=== PATIENT | male | born 1980 | race Caucasian/White ===

== ENCOUNTER 2018-11-06 09:07 | Inpatient (IN) | payer MEDICAID ==
[2018-11-06] MEDS ORDERED: Acetaminophen 500 MG TAB PO ONE (09:24)
[2018-11-06] MEDS ORDERED: Sodium Chloride 0.9% 1,000 ML IV ONE ×2 (09:24→10:28)
[2018-11-06] MEDS ORDERED: Acetaminophen 500 MG TAB ONE (09:41)
[2018-11-06 10:04] LABS: INR 1.29 (0.5-1.4)
[2018-11-06 10:08] LABS: ALB/GLOB RATIO 1.3 (1.0-1.8); ALBUMIN 3.6 gm/dL (4.2-5.5); ALKALINE PHOSPHATASE 41 U/L (34-104); ANION GAP 14.6 (7.0-16.0); BILIRUBIN,TOTAL 1.6 mg/dL (0.3-1.0); BUN - UREA NITROGEN 17 mg/dL (7-25); CALCIUM SERUM 9.2 mg/dL (8.6-10.3); CHLORIDE 89 mEq/L (98-107); CREATININE - SERUM 1.1 mg/dL (0.7-1.3); GFR AFRICAN-AMERICAN > 60.0 ml/min (>90); GFR NON AFRICAN-AMERICAN > 60.0 ml/min; GLUCOSE 169 mg/dL (70-105); POTASSIUM SERUM 3.6 mEq/L (3.5-5.1); SGOT 29 U/L (13-39); SGPT/ALT 30 U/L (7-52); SODIUM SERUM 121 mEq/L (136-145); TOTAL PROTEIN,SERUM 6.4 gm/dL (6.0-8.3)
--- NOTE | 2018-11-06 10:19 | Diagnostic Imaging Report ---
Chest x-ray (single view, AP) HISTORY: Fever The heart size is normal. There are faint ill-defined multifocal bilateral pulmonary infiltrates. Exact etiology is uncertain. Inflammatory process cannot be excluded. Clinical correlation is needed. A CT scan may provide additional assessment and evaluation. No hilar or mediastinal amenities. No pleural fluid. IMPRESSION: 1. Faint hilar multifocal infiltrates. Exact etiology uncertain. Findings may be associated with inflammatory change. Clinical correlation needed. A CT scan would provide additional assessment.
[2018-11-06] MEDS ORDERED: Potassium Chloride Elixir 20 mEq /15 mL UDC PO ONE (10:23)
[2018-11-06] MEDS ORDERED: Sodium Chloride 0.45% 1,000 ML IV ONE (10:24)
[2018-11-06 10:27] LABS: HEMATOCRIT 37.5 % (41.0-60); HEMOGLOBIN 12.6 gm/dL (12-16); MEAN CELL VOLUME 88.3 fl (80-99); MEAN CORPUSCULAR HEMOGLOBIN 29.7 pg (26.0-30.0); MEAN CORPUSCULAR HGB CONC 33.7 pg (28.0-36.0); PLATELET COUNT 204 Th/cmm (150-400); RED BLOOD COUNT 4.25 Mil/cmm (4.30-5.70); RED CELL DISTRIBUTION WIDTH 11.6 % (11.5-20.0)
[2018-11-06] MEDS ORDERED: Potassium Chloride Elixir 20 mEq /15 mL UDC ONE (10:32)
[2018-11-06] MEDS ORDERED: IOHEXOL 300mgI/mL 100 ML VIAL ONE (10:40)
[2018-11-06 10:45] LABS: ALLEN TEST Positive; PaCO2 27.7 mmHg (35.0-45.0); PaO2 55.2 mmHg (80.0-100.0); pH 7.521 (7.35-7.45); sO2c 92.1 % (92.0-100.0)
[2018-11-06 10:48] LABS: URINE SOURCE CLEAN C
[2018-11-06 11:08] LABS: URINE BILIRUBIN NEGATIVE (NEGATIVE); URINE BLOOD LARGE (NEGATIVE); URINE GLUCOSE (UA) NEGATIVE (NEGATIVE); URINE KETONE NEGATIVE (NEGATIVE); URINE LEUKOCYTE ESTERASE NEGATIVE (NEGATIVE); URINE MICROSCOPIC INDICATED? YES; URINE NITRATE POSITIVE (NEGATIVE); URINE PROTEIN >=300 mg/dL (NEGATIVE)
[2018-11-06] MEDS ORDERED: Albuterol Nebulizer 2.5mg/3mL HHN ONE ×2 (11:18→11:24)
[2018-11-06] MEDS ORDERED: Ipratropium Neb 0.5 mg/2.5 mL UD HHN ONE ×2 (11:18→11:24)
[2018-11-06 11:32] LABS: URINE COLOR ORANGE
[2018-11-06 11:33] LABS: URINE BACTERIA MANY /hpf (NONE SEEN); URINE CLARITY HAZY (CLEAR); URINE EPITHELIAL CELLS OCCASIONAL /lpf (FEW); URINE WBC 0-2 /hpf (0-5)
--- NOTE | 2018-11-06 11:50 | Diagnostic Imaging Report ---
CT scan of the chest with intravenous contrast HISTORY: Cough Total DLP equals 245 CTDI equals 6.1 Following administration of intravenous contrast, axial sections were obtained from a level above the clavicles down to level below the diaphragm. The exam demonstrates bilateral multifocal ill-defined infiltrates throughout the lungs. Somewhat more focal consolidation noted in the left lower lobe. No pleural fluid is seen. Findings may be associated with an inflammatory etiology. Clinical correlation is needed. The heart size is normal. No abnormal mediastinal masses. Partial obscuration of the left hilar margins due to adjacent infiltrate. IMPRESSION: 1. Bilateral multifocal ill-defined infiltrates throughout the lungs. Exact etiology uncertain. Findings may be associated with an inflammatory process. Clinical correlation is needed.
[2018-11-06 11:51] LABS: BAND NEUTROPHILE 0 % (0-10); BASOPHIL 0 % (0-3); EOSINOPHIL 0 % (0-5); LYMPHOCYTE 72 % (20-50); MONOCYTE 23 % (2-10); NEUTROPHILS 5 % (40-80)
--- NOTE | 2018-11-06 12:02 | ED Physician Chart ---
ED Chief Complaint/HPI - Patient Information Date Seen:: 11/06/18 Time Seen:: 09:10 Chief Complaint:: fever History of Present Illness:: this is a 38 yo white male with fever, weakness, cough, sob and tachycardia. he started getting sick a week ago. he has had pneumonia in the past but non recently. he denies smoking, drinking but has use thc. Allergies:: Allergies Allergy/AdvReac Type Severity Reaction Status Date / Time No Known Allergies Allergy Verified 11/06/18 09:41 Vitals:: Vital Signs - 8 hr 11/06/18 11/06/18 11/06/18 09:09 10:21 11:13 Temp 101.5 F 98.6 F HR 120 146 132 RR 18 41 47 BP 130/77 118/68 117/71 O2 Sat % 94 98 11/06/18 11:28 Temp HR 131 RR 24 BP O2 Sat % 98 Historian:: Patient, Family Member (sister) Review:: Nurse's Note Reviewed, Old Chart Reviewed ED Review of Systems - Review of Systems General/Constitutional: Fever, Chills, Weight loss, Weakness, No diaphoresis, No edema, Loss of appetite Skin: No skin lesions, No rash, No bruising, Other (insect bites) Head: No headache, No light-headedness Eyes: No loss of vision, No pain, No diplopia ENT: No earache, No nasal drainage, No sore throat, No tinnitus Neck: No neck pain, No swelling, No thyromegaly, No stiffness, No mass noted Cardio Vascular: No chest pain, No palpitations, No PND, No orthopnea, No edema Pulmonary: SOB, Cough, No sputum, No wheezing GI: No nausea, No vomiting, No diarrhea, No pain, No melena, No hematochezia, No constipation, No hematemesis G/U: No dysuria, No frequency, No hematuria Musculoskeletal: No bone or joint pain, No back pain, No muscle pain Endocrine: No polyuria, No polydipsia Psychiatric: No prior psych history, No depression, No anxiety, No suicidal ideation Hematopoietic: No bruising, No lymphadenopathy Allergic/Immuno: No urticaria, No angioedema Neurological: No syncope, No focal symptoms, No weakness, No paresthesia, No headache, No seizure, No dizziness, No confusion, No vertigo ED Past Medical History - Past Medical History Obtainable: Yes Past Medical History: No significant medical hx Family History: None Social History: Smoker, No Alcohol, Illicit Drug Use, Employed Surgical History: None Psychiatricy History: None Medication: Reviewed Family Medical History - Family Member Mother History Unknown: Yes ED Physical Exam - Physical Examination General/Constitutional: Well-developed, well-nourished (poorly nourished and dehydrated), Alert, No distress, GCS 15, Ambulatory Other Gen/Cons comments:: the patient looks toxic and is lethargic Head: Atraumatic Eyes: Lids, conjuctiva normal, PERRL, EOMI Skin: Nl inspection, No rash, No skin lesions (multiple insect noted), No ecchymosis, Well hydrated, No lymphadenopathy ENMT: External ears, nose nl, Nasal exam nl, Lips, teeth, gums nl Neck: Nontender, Full ROM w/o pain, No JVD, No nuchal rigidity, No bruit, No mass, No stridor Respiratory: Nl effort/Exclusion, Clear to Auscultation, No Wheeze/Rhonchi/ Rales (bilateral wheezes and ronchi) Cardio Vascular: RRR, No murmur, gallop, rubs, NL S1 S2 GI: No tenderness/rebounding/guarding, No organomegaly, No hernia, Normal BS's, Nondistended, No mass/bruits, No McBurney tenderness : No CVA tenderness Extremities: No tenderness or effusion, Full ROM, normal strength in all extremities, No edema, Normal digits & nails Neuro/Psych: Alert/oriented, DTR's symmetric, Normal sensory exam, Normal motor strength, Judgement/insight normal, Mood normal, Normal gait, No focal deficits Misc: Normal back, No paraspinal tenderness ED Labs/Radiology/EKG Results - Lab Results Results: Laboratory Tests 11/06/18 11/06/18 11/06/18 09:40 09:40 09:40 WBC RBC Hgb Hct MCV MCH MCHC Differential RDW Plt Count MPV Add Manual Diff Band Neutrophils % Neutrophils (Manual) Lymphocytes Monocytes Eosinophils Basophils PT 13.2 H INR 1.29 PTT (Actin FS) 43.9 H Specimen Source Sample Site pH pCO2 pO2 HCO3 Base Excess O2 Saturation Shiv Test Vent Rate Inspired O2 Tidal Volume PEEP Pressure (ins/psv/peep) Critical Value Sodium 121 L Potassium 3.6 Chloride 89 L Carbon Dioxide 21.0 Anion Gap 14.6 BUN 17 Creatinine 1.1 Est GFR ( Amer) > 60.0 Est GFR (Non-Af Amer) > 60.0 BUN/Creatinine Ratio 15.5 Glucose 169 H Whole Bld Lactic Acid Calcium 9.2 Total Bilirubin 1.6 H AST 29 ALT 30 Alkaline Phosphatase 41 Troponin I 0.03 Total Protein 6.4 Albumin 3.6 L Globulin 2.8 Albumin/Globulin Ratio 1.3 TSH Urine Source Urine Color Urine Clarity Urine pH Ur Specific [place] Urine Protein Urine Glucose (UA) Urine Ketones Urine Blood Urine Nitrate Urine Bilirubin Urine Urobilinogen Ur Leukocyte Esterase Urine RBC Urine WBC Ur Epithelial Cells Urine Bacteria HIV 1&2 Antibody Screen 11/06/18 11/06/18 11/06/18 09:40 09:40 10:00 WBC RBC Hgb Hct MCV MCH MCHC Differential RDW Plt Count MPV Add Manual Diff Band Neutrophils % Neutrophils (Manual) Lymphocytes Monocytes Eosinophils Basophils PT INR PTT (Actin FS) Specimen Source Sample Site pH pCO2 pO2 HCO3 Base Excess O2 Saturation Shiv Test Vent Rate Inspired O2 Tidal Volume PEEP Pressure (ins/psv/peep) Critical Value Sodium Potassium Chloride Carbon Dioxide Anion Gap BUN Creatinine Est GFR ( Amer) Est GFR (Non-Af Amer) BUN/Creatinine Ratio Glucose Whole Bld Lactic Acid 1.93 Calcium Total Bilirubin AST ALT Alkaline Phosphatase Troponin I Total Protein Albumin Globulin Albumin/Globulin Ratio TSH 1.14 Urine Source CLEAN C Urine Color ORANGE Urine Clarity HAZY Urine pH 6.0 Ur Specific [place] 1.025 Urine Protein >=300 Urine Glucose (UA) NEGATIVE Urine Ketones NEGATIVE Urine Blood LARGE H Urine Nitrate POSITIVE H Urine Bilirubin NEGATIVE Urine Urobilinogen 1.0 Ur Leukocyte Esterase NEGATIVE Urine RBC 2-5 H Urine WBC 0-2 Ur Epithelial Cells OCCASIONAL Urine Bacteria MANY H HIV 1&2 Antibody Screen 11/06/18 11/06/18 11/06/18 10:22 10:22 10:31 WBC 0.3 L* RBC 4.25 L Hgb 12.6 Hct 37.5 L MCV 88.3 MCH 29.7 MCHC Differential 33.7 RDW 11.6 Plt Count 204 MPV 7.1 Add Manual Diff YES Band Neutrophils % 0 Neutrophils (Manual) 5 L Lymphocytes 72 H Monocytes 23 H Eosinophils 0 Basophils 0 PT INR PTT (Actin FS) Specimen Source Arterial Sample Site Right Radial pH 7.521 H pCO2 27.7 L pO2 55.2 L HCO3 22.2 Base Excess 0.7 O2 Saturation 92.1 Shiv Test Positive Vent Rate N/A Inspired O2 32 Tidal Volume N/A PEEP N/A Pressure (ins/psv/peep) N/A Critical Value DM Sodium Potassium Chloride Carbon Dioxide Anion Gap BUN Creatinine Est GFR ( Amer) Est GFR (Non-Af Amer) BUN/Creatinine Ratio Glucose Whole Bld Lactic Acid Calcium Total Bilirubin AST ALT Alkaline Phosphatase Troponin I Total Protein Albumin Globulin Albumin/Globulin Ratio TSH Urine Source Urine Color Urine Clarity Urine pH Ur Specific [place] Urine Protein Urine Glucose (UA) Urine Ketones Urine Blood Urine Nitrate Urine Bilirubin Urine Urobilinogen Ur Leukocyte Esterase Urine RBC Urine WBC Ur Epithelial Cells Urine Bacteria HIV 1&2 Antibody Screen NEGATIVE - Radiology Results Results: chest x-ray = patchy infiltrates ct scan of the chest = patchy infiltrates - EKG Interpretations EKG Time:: 09:35 Rate & Rhythm: rate= 156 sinus [place]: right axis ED Assessment - Assessment General Assessment: acute respiratory fialure with hypoxemia severe dehydration fever severe leukopenia Critical Care Time: 76 minutes Excludes all billable procedures: Yes This condition life threatening/high prob of deterioration: Yes ED Septic Shock - . Is Septic Shock (SBP<90, OR Lactate>4 mmol\L) present?: No - <6hrs of presentation: Vital Signs: Vital Signs - 8 hr 11/06/18 11/06/18 11/06/18 09:09 10:21 11:13 Temp 101.5 F 98.6 F HR 120 146 132 RR 18 41 47 BP 130/77 118/68 117/71 O2 Sat % 94 98 11/06/18 11:28 Temp HR 131 RR 24 BP O2 Sat % 98 ED Reassessment (Disposition) - Reassessment Reassessment Condition:: Improved - Diagnosis Diagnosis:: acute respiratory failure with hypoxemia severe deydration severe leucopenia fever - Patient Disposition Discharge/Transfer:: Acute Care w/in this hosp Admitted to:: ICU Admitting Medical Physician:: Jericho Bai Condition at Disposition:: Critical
[2018-11-06 12:12] LABS: AMPHETAMINE URINE NEGATIVE (NEGATIVE); BARBITURATES URINE NEGATIVE (NEGATIVE); BENZODIAZEPINES QUAL URINE NEGATIVE (NEGATIVE); CANNABINOID THC POSITIVE (NEGATIVE); COCAINE METABOLITE QUAL URINE POSITIVE (NEGATIVE); METHADONE URINE NEGATIVE (NEGATIVE); METHAMPHETAMINES QUAL URINE NEGATIVE (NEGATIVE); OPIATES (MORPHINE) QUAL. URINE NEGATIVE (NEGATIVE); PHENCYCLIDINE (PCP) URINE NEGATIVE (NEGATIVE); TRICYCLICS (TCA) QUAL. URINE NEGATIVE (NEGATIVE)
[2018-11-06] MEDS ORDERED: Maalox 30 mL Cup PO PRN (12:38)
[2018-11-06] MEDS ORDERED: guaiFENesin 200 MG/10 ML UDC PO PRN (12:38)
[2018-11-06] MEDS: Albuterol Nebulizer 2.5mg/3mL HHN SCH ×2 (14:06→19:36)
[2018-11-06] MEDS: Ipratropium Neb 0.5 mg/2.5 mL UD IH SCH ×2 (14:06→19:36)
[2018-11-06] MEDS: Fluconazole 400mg/200mL 400 MG/200 ML BAG IV SCH (14:11)
[2018-11-06] MEDS: methylPREDNISolone SS 40 mg Vial IVP SCH ×2 (14:12→20:46)
[2018-11-06] MEDS: D5-0.9%NS 1,000 ML IV SCH ×2 (14:13→20:50)
--- NOTE | 2018-11-06 15:24 | History & Physical ---
ADMIT DATE: 11/06/2018 CHIEF COMPLAINT: Fever, not feeling well. HISTORY OF PRESENT ILLNESS: This is a 38-year-old otherwise healthy male who was brought in secondary to 7-day history of not feeling well, complaining of fever, weakness, coughing and shortness of breath. The patient was brought in the ER and noted to have creatinine in 130s and to be dehydrated. The patient is being admitted to ICU. PAST MEDICAL HISTORY: As mentioned in the history of present illness. PAST SURGICAL HISTORY: ____. ALLERGIES: No known drug allergies. MEDICATIONS: None. FAMILY HISTORY: Noncontributory. SOCIAL HISTORY: He smokes around 1 occasional cigarette, drinks beer mostly. The patient is positive for cocaine. 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 REVIEW OF SYSTEMS: GENERAL: The patient complains of not feeling well. HEENT: No blurred vision or pain. LUNGS: The patient with previous history of pneumonia. HEART: Denies hypertension or coronary artery disease. ABDOMEN: No nausea or vomiting. GENITOURINARY: The patient denies increased frequency or dysuria. NEUROLOGIC: No headache, seizure or syncope. PSYCHIATRIC: The patient denies. PHYSICAL EXAMINATION: VITAL SIGNS: Blood pressure 117/70, respirations ____, and temperature 98.6. GENERAL: A middle-aged male, appears acutely ill. NECK: Supple. No mass. LUNGS: Equal breath sounds, few rhonchi. HEART: Regular rate and rhythm. Sinus tachycardia. ABDOMEN: Soft, globular. EXTREMITIES: Positive rash in the right lower extremity, 1 cm as well as the forehead. No clubbing, cyanosis or edema. NEUROLOGIC: Limited. Moving all 4 extremities. LABORATORY DATA: WBC 0.3, hemoglobin 12, platelets 204. Sodium 113. PT 13, INR 1.2, PTT 43, pH 7.5, bicarbonate 7, pCO2 of 55. Sodium 120, potassium 3.6, BUN 70, creatinine 1.1, blood sugar 169, total bilirubin 1.6, albumin 3.6. UA positive nitrite, large leukocyte, many bacteria, positive cocaine and marijuana. ASSESSMENT AND PLAN: 1. Sepsis, atypical pneumonia, generalized rash. We will continue IV hydration. 2. Substance abuse, hyponatremia, tachycardia. The patient had a CT chest, which showed ill-defined multilobar infiltrates throughout the lung could be inflammatory in nature. We will empirically start the patient on broad-spectrum antibiotic, vancomycin, Zosyn, as well as Diflucan. We will send for HIV as well as hepatitis panel. We will refer the patient to Pulmonary and Infectious Disease as well as Renal. Continue on aggressive IV hydration. Case was discussed with the patient and mother as well as his sisters and nurse and sister's fiance. The patient prognosis is guarded. The patient to remain in ICU. We will continue monitoring the patient closely. The patient is a full code. JOB# [id number]
[2018-11-06] MEDS: Pantoprazole 40 mg EC Tab PO SCH (16:10)
[2018-11-06 18:48] LABS: INR 1.38 (0.5-1.4)
[2018-11-06] MEDS: DEXTROSE IV SCH (19:09)
[2018-11-06] MEDS: SULFAMETHOXAZOLE IV SCH (19:09)
[2018-11-06] MEDS: TMP IV SCH (19:09)
[2018-11-06] MEDS: Levofloxacin 750mg/150mL 750 MG/150 ML BAG IV SCH (19:55)
[2018-11-06] MEDS: Morphine Sulfate 2 mg/mL 1mL Syr IVP PRN (20:18)
[2018-11-06] MEDS: Heparin Sod 5,000Units/ML 5,000 UNITS/ML VIAL SUBQ SCH (20:50)
[2018-11-06] MEDS: Meropenem 2 GM in Sodium Chloride 0.9% 100 ML IV SCH (21:47)
--- NOTE | 2018-11-06 21:48 | Consultation ---
DATE OF CONSULTATION: 11/06/2018 HISTORY OF PRESENT ILLNESS: A 38-year-old male with no significant past medical history, never seen any physician in life, developed generalized weakness 4 days ago. He developed fever and chills as is the cough and shortness of breath. Yesterday, his condition got worse and he had worsening of shortness of breath. So, he was brought to the ER for further evaluation and management. The patient also stated that he had lost around 6-7 pounds in the last 3 months. He stated that he exposed to the dust. On initial evaluation, his temperature was 101.5 degree Fahrenheit and heart rate 120, respirations 18, blood pressure 130/77. His WBC count was 300 with neutrophil 5%. A pCO2 was 27.7 with pO2 55.2. Sodium is 121 and lactic acid was 1.93. Urinalysis shows many bacteria with positive nitrite, large blood. HIV screen was negative. CT scan of the chest revealed bilateral multifocal ill-defined infiltrates throughout the lungs. The patient was started on vancomycin, Zosyn and Diflucan. ID consult was called for further care. There is no previous lab available for this patient. PAST MEDICAL HISTORY: None as the patient has never visited any physician in the past. PAST SURGICAL HISTORY: None. ALLERGIES: NKDA. HOME MEDICATIONS: None. EXPOSURE TOCONTACTS: None. FAMILY HISTORY: Noncontributory. 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 He is single and has 3 children. He smokes cigarettes occasionally, maybe 1 per day. Drinks beer mostly, history of cocaine abuse. REVIEW OF SYSTEMS: GENERAL: The patient complains of fever, chills, diaphoresis and generalized weakness. The patient has some weight loss of around 8 pounds in the last 3 months. HEENT: Denies any diplopia, photophobia or sore throat. Denies any ear pain or ear discharge. RESPIRATORY: The patient complains of cough and shortness of breath. CARDIOVASCULAR: Denies chest pain, no palpitation. GASTROINTESTINAL: The patient denies any nausea or vomiting, but the patient complains of diarrhea. No constipation, no abdominal pain. No melena. GENITOURINARY: The patient denies any dysuria or hematuria. NEUROLOGIC AND CENTRAL NERVOUS SYSTEM: No headache, no dizziness, no focal weakness. The patient feels very weak and feels sleepy. Denies any seizures. PHYSICAL EXAMINATION: VITAL SIGNS: Shows temperature is 97.6, T-max is 101.5 degrees Fahrenheit, pulse 126, respirations 24, blood pressure is 110/69. GENERAL: The patient is a lean and thin male, cachectic. HEENT: Head is normocephalic, atraumatic. Oral cavity moist, pink tongue. No thrush. EYES: No pallor, no icterus. Pupils PERRLA, EOMI. NECK: Supple. No JVD, no carotid bruit. Trachea in midline. CHEST: Bilateral vesicular sounds. Crackles present bilaterally. CARDIOVASCULAR: S1, S2 within normal limits. Regular rhythm. No murmur, no gallop. ABDOMEN: Soft, nontender, nondistended. Bowel sounds present. Scaphoid. EXTREMITIES: No cyanosis, no clubbing, no edema. Pulses are palpable in all 4 limbs. EMERGENCY SPECIALIST: Alert, awake, oriented x 3, ambulating with the support because of the weakness. No focal neuro deficit. SKIN: The patient has small skin lesions like pustules on the right arm, right shoulder, right leg. There is no abscess. LABORATORY DATA: Current lab shows WBC count is 300, hemoglobin 12.6, hematocrit 37.5, platelets are 204,000, neutrophils 5%, lymphocytes 72%, monocytes 23%. PT 13.2, INR 1.09, PTT is 43.9. ABG shows pH 7.21, pCO2 of 27.7, pO2 of 55.2 and oxygen saturation 92%. Sodium is 121, potassium 3.6, chloride 89, bicarbonate is 21, BUN is 17, creatinine 1.1, glucose is 169. Total bilirubin is 1.6, AST 29, ALT 30, alkaline phosphatase is 41. Urinalysis showed hazy urine with large blood, positive nitrite, RBC 2-5, many bacteria. Toxicology screen is positive for cocaine and cannabinoids. Troponin 0.03. Chest x-ray shows faint hilar multifocal infiltrate exact etiology, uncertain. CT scan of the chest suggested bilateral multifocal ill-defined infiltrate throughout the lungs, exact etiology, uncertain, finding may be associated with inflammatory process. IMPRESSION: 1. Severe neutropenia. 2. Extensive pneumonia, both lung, inflammatory versus infectious. 3. Pustules. 4. Hyponatremia. 5. Sepsis. 6. Respiratory failure with hypoxemia. RECOMMENDATIONS AND PLAN: 1. The patient needs to be transferred to a higher level of care. Discussed with Dr. Bai and staff. 2. Hematology/Oncology consultation with Dr. Wolfe. The patient will need a bone marrow biopsy, if he does not show improvement by tomorrow or Dr. Wolfe agrees for that. 3. Legionella and mycoplasma serologies. I would like to get induced sputum for PCP, DFA. Antibiotic-medina, change antibiotic to vancomycin, Levaquin, Bactrim and meropenem. Pulmonary consultation was already called as the patient has diarrhea. We will get CT scan of abdomen and pelvis. Discussed with the family in detail. At this point, the patient carries very poor prognosis. Respiratory support is needed. Discussed with Dr. Bai also. Discussed with the family and they are aware of the patient's clinical status. It was noted that patient has a neutrophil line is affected only, so suspect blood related or bone related malignancy also. The diagnosis is not limited to the above-mentioned conditions. Discussed with the family in detail. Thank you, Dr. Bai for involving me in taking care of this patient. JOB# [id number] CHARANJIT
[2018-11-07] MEDS: Morphine Sulfate 2 mg/mL 1mL Syr IVP PRN ×4 (00:26→22:08)
--- NOTE | 2018-11-07 00:48 | Consultation ---
DATE OF CONSULTATION: 11/06/2018 ATTENDING PHYSICIAN: Jericho Bai D.O. COAT EXAMINER: Bryan Moctezuma M.D. REASON FOR CONSULTATION: Electrolyte imbalance and fluid management. HISTORY OF PRESENT ILLNESS: This is a 38-year-old male who does not have any past medical history, who came in because of generalized weakness. Two days prior to admission, he developed nausea and vomiting. He could not tolerate anything orally. This was associated with fever, occasional cough and shortness of breath. A few hours prior to admission, his condition has worsened. He also had one episode of diarrhea. He then proceeded to the Emergency Room. His temperature was 101.5 degrees. Chest x-ray revealed multifocal infiltrates. CT scan of the chest confirmed multifocal infiltrates of the lung. Urinalysis was suggestive of UTI. His white count was 0.5. Urine screen showed positive for cocaine and cannabinoids. His sodium level also was 121. PAST MEDICAL HISTORY: None. CURRENT MEDICATIONS: He is currently on albuterol, ceftriaxone, fluconazole, albuterol/ipratropium, methylprednisolone, ondansetron, Protonix, vancomycin, zolpidem, and Zosyn. ALLERGIES: No known drug allergies. SOCIAL HISTORY: Obtained from the sister. The patient does have a history of smoking marijuana. He does not smoke cigarettes. He drinks occasionally. 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 FAMILY HISTORY: This is significant for thyroid abnormalities as well as pancreatic cancer. REVIEW OF SYSTEMS: Was unable to obtain directly from the patient because he is currently stuporous. PHYSICAL EXAMINATION: GENERAL: As mentioned, the patient is stuporous, but more comfortable. VITAL SIGNS: His blood pressure is 117/71, pulse 131, temperature is 98.6 degrees. SKIN: Poor turgor, warm. No rash, no jaundice appreciated. HEENT: Head normocephalic, atraumatic. Eyes: Extraocular muscles intact. Pupils equal, round, reactive to light and accommodates. Anicteric sclerae. [place] conjunctivae. Nose is midline septum. Mouth: Dry mucosa, adequate dentition. NECK: Supple, no adenopathy, no thyromegaly, no bruits. Trachea palpated in the midline. CHEST AND CARDIOVASCULAR: S1, S2, tachycardic, but no rub, murmur nor gallop appreciated. Point of maximal impulse fifth intercostal space, left midclavicular line. No abdominal or femoral bruits appreciated. LUNGS: Equal expansion. No use of accessory muscles. No supraclavicular retractions. Decreased breath sounds, but no scattered rhonchi, but no rales nor wheezes appreciated. ABDOMEN: Flat, soft, positive for bowel sounds. No muscle guarding. No tenderness. No pulsatile masses. No bruits either diastolic or systolic. RECTAL: This was deferred. GENITOURINARY: Normal appearing male genitalia. MUSCULOSKELETAL: No effusions present in his joints, but unable to assess his range of motion. EXTREMITIES: There is no evidence of edema, cyanosis nor clubbing with palpable femoral, popliteal and dorsalis pedis pulses. NEUROLOGIC: As mentioned, the patient is stuporous, so I was not able to pursue further my neuro exam. LABORATORY DATA: Did reveal white count of 0.3, hemoglobin 12.6, hematocrit 37.5, platelets 204, polys is 5%, lymphocytes is 72, monocytes 23. PT is 13.2, PTT 43.9. Sodium 121, potassium 3.6, chloride 21. BUN 17, creatinine 1.1, glucose is 169, lactic acid 1.36, albumin is 3.6. His total bili is 1.6. IMPRESSION: 1. Hyponatremia. Exam and history and physical are suggestive of hypovolemia. He came in tachycardic with low blood pressure, persistent nausea and vomiting and unable to replenish his fluid losses. There is also a possibility of increased sodium loss as compared to free water loss. 2. Febrile neutropenia, possibly malignancy, also consider Felty syndrome. 3. Severe dehydration. 4. Severe sepsis secondary to complicated urinary tract infection and bilateral community acquired pneumonia. 5. Respiratory alkalosis. PLAN: 1. Continue with IV fluids of normal saline. 2. Urine spot sodium. 3. Urine osmolarity, uric acid. 4. Follow up electrolytes and cultures. 5. Broad-spectrum antibiotics. 6. Reverse isolation. JOB# [id number]
[2018-11-07] MEDS: TMP IV SCH ×3 (01:35→18:33)
[2018-11-07] MEDS: SULFAMETHOXAZOLE IV SCH ×3 (01:35→18:33)
[2018-11-07] MEDS: DEXTROSE IV SCH ×3 (01:35→18:33)
--- NOTE | 2018-11-07 01:58 | Consultation ---
DATE OF CONSULTATION: 11/06/2018 REFERRING PHYSICIAN: Dr. Bai. Thank you very much for this consultation. HISTORY OF PRESENT ILLNESS: This is a 38-year-old male who presented with fever, chills, weakness, chest pain and for the past few days, started having some shortness of breath as well, flu-like symptoms few days ago with muscle aches, came in and was found to have pneumonia, required high level of oxygen initially, was on nasal cannula. He is feeling a little bit better, but still very weak. The patient also mentioned some weight loss, upon questioning, over the past few months and ____. Denies night sweats, denies any TB exposure. He was healthy before. PAST MEDICAL HISTORY: As above. SOCIAL HISTORY: He smokes marijuana and drinks alcohol about 6 packs a day, sometimes more on the weekends. REVIEW OF SYSTEMS: GENERAL: Some weakness, fatigue. CARDIOVASCULAR: Chest pain, no palpitations. RESPIRATORY: Shortness of breath. GASTROINTESTINAL: No nausea or vomiting. PHYSICAL EXAMINATION: GENERAL: He is awake, alert, not in acute distress. VITAL SIGNS: Temperature is 97.6, pulse 126, respirations 24, blood pressure 110/69, saturation 98%. HEENT: Atraumatic, normocephalic. Pupils equal and reactive to light and accommodation. Ears, nose and throat normal. NECK: Supple. No JVD. CHEST: Rhonchi in bases. HEART: Regular rate and rhythm. ABDOMEN: Soft. EXTREMITIES: No edema. LABORATORY DATA: WBC ____, hemoglobin 12.6, hematocrit 37.5, platelets 204. ABGs: pH 7.52, pCO2 of 27, pO2 of 55, bicarbonate is 22. Sodium is 121, potassium 3.6, BUN is 17, creatinine 1.1. Chest x-ray, multifocal infiltrates. Positive for cocaine, positive for marijuana. IMPRESSION: 1. Respiratory failure. 2. Pneumonia. 3. 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 4. Leukopenia, possibly is overwhelming infection. Need to rule out underlying hematologic disease/malignancy versus immunocompromised state/HIV. PLAN: 1. IV antibiotics. 2. Nebulizer treatment. 3. Suggest ID evaluation. 4. HIV test. 5. Hematology evaluation and follow up CBCs. 6. Gross Isolation. I will follow the patient with you. Thank you very much for this consultation. PROGNOSIS: Guarded. Discussed with the patient and the family at bedside in details. JOB# [id number]
[2018-11-07] MEDS: D5-0.9%NS 1,000 ML IV SCH (04:45)
[2018-11-07] MEDS: methylPREDNISolone SS 40 mg Vial IVP SCH ×3 (04:46→20:50)
[2018-11-07] MEDS: Meropenem 2 GM in Sodium Chloride 0.9% 100 ML IV SCH ×3 (04:46→19:00)
[2018-11-07 06:04] LABS: MEAN CORPUSCULAR HGB CONC 33.4 pg (28.0-36.0); PLATELET COUNT 144 Th/cmm (150-400)
[2018-11-07 06:23] LABS: HEMATOCRIT 36.9 % (41.0-60); HEMOGLOBIN 12.3 gm/dL (12-16); MEAN CELL VOLUME 88.2 fl (80-99); MEAN CORPUSCULAR HEMOGLOBIN 29.5 pg (26.0-30.0); RED BLOOD COUNT 4.18 Mil/cmm (4.30-5.70); RED CELL DISTRIBUTION WIDTH 11.8 % (11.5-20.0)
[2018-11-07 06:35] LABS: ALB/GLOB RATIO 1.1 (1.0-1.8); ALBUMIN 2.7 gm/dL (4.2-5.5); ALKALINE PHOSPHATASE 26 U/L (34-104); ANION GAP 12.8 (7.0-16.0); BILIRUBIN,TOTAL 0.5 mg/dL (0.3-1.0); BUN - UREA NITROGEN 13 mg/dL (7-25); CALCIUM SERUM 8.2 mg/dL (8.6-10.3); CARBON DIOXIDE 17.7 mEq/L (21.0-31.0); CHLORIDE 99 mEq/L (98-107); CREATININE - SERUM 0.7 mg/dL (0.7-1.3); GFR AFRICAN-AMERICAN > 60.0 ml/min (>90); GFR NON AFRICAN-AMERICAN > 60.0 ml/min; POTASSIUM SERUM 3.5 mEq/L (3.5-5.1); SGOT 20 U/L (13-39); SGPT/ALT 21 U/L (7-52); SODIUM SERUM 126 mEq/L (136-145); TOTAL PROTEIN,SERUM 5.2 gm/dL (6.0-8.3)
[2018-11-07] MEDS: Pantoprazole 40 mg EC Tab PO SCH (06:46)
[2018-11-07 07:11] LABS: GLUCOSE 277 mg/dL (70-105)
[2018-11-07] MEDS: Ipratropium Neb 0.5 mg/2.5 mL UD IH SCH ×4 (07:11→19:18)
[2018-11-07] MEDS: Albuterol Nebulizer 2.5mg/3mL HHN SCH ×4 (07:11→19:18)
[2018-11-07 08:00] LABS: pH 7.498 (7.35-7.45)
[2018-11-07 08:04] LABS: WHITE BLOOD COUNT 0.3 Th/cmm (4.8-10.8)
[2018-11-07 08:04] LABS: PaCO2 23.3 mmHg (35.0-45.0)
[2018-11-07 08:05] LABS: ALLEN TEST Positive; PaO2 174.3 mmHg (80.0-100.0); sO2c 99.3 % (92.0-100.0)
--- NOTE | 2018-11-07 08:31 | Diagnostic Imaging Report ---
Portable chest x-ray HISTORY: Pneumonia Compared with prior exam of November 06, 2018, the heart size remains normal. There appears to be a slight degree of improvement in patchy of the finding infiltrates the right lung and left lower lobe areas. Somewhat more focal density noted in the left lower lobe with obscuration left hemidiaphragm. Findings consistent with consolidation and/or atelectasis IMPRESSION: 1. Slight improvement in previously reported patchy infiltrates in the right and left lungs. 2. Somewhat more focal density in the left lower lobe consistent with consolidation and/or atelectasis.
[2018-11-07] MEDS ORDERED: Diatrizoate Meglumine/Diatri 30 mL Sol PO ONE (09:00)
[2018-11-07] MEDS: Heparin Sod 5,000Units/ML 5,000 UNITS/ML VIAL SUBQ SCH (10:16)
[2018-11-07 10:37] LABS: BAND NEUTROPHILE 0 % (0-10); BASOPHIL 0 % (0-3); EOSINOPHIL 0 % (0-5); LYMPHOCYTE 82 % (20-50); MONOCYTE 15 % (2-10); NEUTROPHILS 3 % (40-80)
[2018-11-07 10:38] LABS: PLATELET ESTIMATE SLIGHT DECREASED (NORMAL)
--- NOTE | 2018-11-07 13:59 | General Progress Note ---
Subjective - Review of Systems Service Date: 11/07/18 Subjective: arousable, weak Objective - Results Result Diagrams: 11/07/18 05:00 11/07/18 05:00 Recent Labs: Laboratory Last Values WBC 0.3 Th/cmm (4.8-10.8) L* 11/07/18 05:00 RBC 4.18 Mil/cmm (4.30-5.70) L 11/07/18 05:00 Hgb 12.3 gm/dL (12-16) 11/07/18 05:00 Hct 36.9 % (41.0-60) L 11/07/18 05:00 MCV 88.2 fl (80-99) 11/07/18 05:00 MCH 29.5 pg (26.0-30.0) 11/07/18 05:00 MCHC Differential 33.4 pg (28.0-36.0) 11/07/18 05:00 RDW 11.8 % (11.5-20.0) 11/07/18 05:00 Plt Count 144 Th/cmm (150-400) L D 11/07/18 05:00 MPV 8.5 fl 11/07/18 05:00 Add Manual Diff YES 11/07/18 05:00 Band Neutrophils % 0 % (0-10) 11/07/18 05:00 Neutrophils (Manual) 3 % (40-80) L 11/07/18 05:00 Lymphocytes 82 % (20-50) H 11/07/18 05:00 Monocytes 15 % (2-10) H 11/07/18 05:00 Eosinophils 0 % (0-5) 11/07/18 05:00 Basophils 0 % (0-3) 11/07/18 05:00 Platelet Estimate SLIGHT DECREASED (NORMAL) 11/07/18 05:00 Plt Count 169 Th/cmm (150-750) 11/06/18 18:32 PT 14.1 SECONDS (9.5-11.5) H 11/06/18 18:32 INR 1.38 (0.5-1.4) 11/06/18 18:32 PTT (Actin FS) 51.0 SECONDS (26.0-38.0) H 11/06/18 18:32 D-Dimer 3890 ng/mL (100-400) H 11/06/18 18:32 Specimen Source Arterial 11/07/18 07:39 Sample Site Right Radial 11/07/18 07:39 pH 7.498 (7.35-7.45) H 11/07/18 07:39 pCO2 23.3 mmHg (35.0-45.0) L* 11/07/18 07:39 pO2 174.3 mmHg (80.0-100.0) H 11/07/18 07:39 HCO3 17.7 mEq/L (20.0-26.0) L 11/07/18 07:39 Base Excess -3.4 mEq/L (-3.0-3.0) L 11/07/18 07:39 O2 Saturation 99.3 % (92.0-100.0) 11/07/18 07:39 Shiv Test Positive 11/07/18 07:39 Vent Rate NA 11/07/18 07:39 Inspired O2 32 11/07/18 07:39 Tidal Volume NA 11/07/18 07:39 PEEP NA 11/07/18 07:39 Pressure (ins/psv/peep) NA 11/07/18 07:39 Critical Value JG 11/07/18 07:39 Sodium 126 mEq/L (136-145) L 11/07/18 05:00 Potassium 3.5 mEq/L (3.5-5.1) 11/07/18 05:00 Chloride 99 mEq/L (98-107) 11/07/18 05:00 Carbon Dioxide 17.7 mEq/L (21.0-31.0) L 11/07/18 05:00 Anion Gap 12.8 (7.0-16.0) 11/07/18 05:00 BUN 13 mg/dL (7-25) 11/07/18 05:00 Creatinine 0.7 mg/dL (0.7-1.3) 11/07/18 05:00 Est GFR ( Amer) > 60.0 ml/min (>90) 11/07/18 05:00 Est GFR (Non-Af Amer) > 60.0 ml/min 11/07/18 05:00 BUN/Creatinine Ratio 18.6 11/07/18 05:00 Glucose 277 mg/dL (70-105) H D 11/07/18 05:00 Whole Bld Lactic Acid 1.35 mmol/L (0.60-1.99) 11/06/18 12:00 Uric Acid 1.6 mg/dL (4.4-7.6) L 11/07/18 05:00 Calcium 8.2 mg/dL (8.6-10.3) L 11/07/18 05:00 Total Bilirubin 0.5 mg/dL (0.3-1.0) 11/07/18 05:00 AST 20 U/L (13-39) 11/07/18 05:00 ALT 21 U/L (7-52) 11/07/18 05:00 Alkaline Phosphatase 26 U/L (34-104) L 11/07/18 05:00 Lactate Dehydrogenase 119 U/L (140-271) L 11/06/18 18:32 Creatine Kinase 233 U/L (30-223) H 11/06/18 18:32 CK-MB (CK-2) 4.6 ng/mL (0.6-6.3) 11/06/18 18:32 Troponin I 0.03 ng/mL (0.01-0.05) 11/06/18 09:40 Total Protein 5.2 gm/dL (6.0-8.3) L 11/07/18 05:00 Albumin 2.7 gm/dL (4.2-5.5) L 11/07/18 05:00 Globulin 2.5 gm/dL 11/07/18 05:00 Albumin/Globulin Ratio 1.1 (1.0-1.8) 11/07/18 05:00 TSH 1.14 uIU/ml (0.34-5.60) 11/06/18 09:40 Urine Source CLEAN C 11/06/18 10:00 Urine Color ORANGE 11/06/18 10:00 Urine Clarity HAZY (CLEAR) 11/06/18 10:00 Urine pH 6.0 (4.6 - 8.0) 11/06/18 10:00 Ur Specific [place] 1.025 (1.005-1.030) 11/06/18 10:00 Urine Protein >=300 mg/dL (NEGATIVE) 11/06/18 10:00 Urine Glucose (UA) NEGATIVE mg/dL (NEGATIVE) 11/06/18 10:00 Urine Ketones NEGATIVE mg/dL (NEGATIVE) 11/06/18 10:00 Urine Blood LARGE (NEGATIVE) H 11/06/18 10:00 Urine Nitrate POSITIVE (NEGATIVE) H 11/06/18 10:00 Urine Bilirubin NEGATIVE (NEGATIVE) 11/06/18 10:00 Urine Urobilinogen 1.0 E.U./dL (0.2 - 1.0) 11/06/18 10:00 Ur Leukocyte Esterase NEGATIVE (NEGATIVE) 11/06/18 10:00 Urine RBC 2-5 /hpf (0-5) H 11/06/18 10:00 Urine WBC 0-2 /hpf (0-5) 11/06/18 10:00 Ur Epithelial Cells OCCASIONAL /lpf (FEW) 11/06/18 10:00 Urine Bacteria MANY /hpf (NONE SEEN) H 11/06/18 10:00 Vancomycin Trough 10.5 ug/mL (5-10) H 11/07/18 05:00 Urine Opiates Screen NEGATIVE (NEGATIVE) 11/06/18 10:22 Urine Methadone Screen NEGATIVE (NEGATIVE) 11/06/18 10:22 Ur Barbiturates Screen NEGATIVE (NEGATIVE) 11/06/18 10:22 Ur Tricyclics Screen NEGATIVE (NEGATIVE) 11/06/18 10:22 Ur Phencyclidine Scrn NEGATIVE (NEGATIVE) 11/06/18 10:22 Amphetamines Screen NEGATIVE (NEGATIVE) 11/06/18 10:22 U Methamphetamines Scrn NEGATIVE (NEGATIVE) 11/06/18 10:22 U Benzodiazepines Scrn NEGATIVE (NEGATIVE) 11/06/18 10:22 U Cocaine Metab Screen POSITIVE (NEGATIVE) H 11/06/18 10:22 U Cannabinoids Screen POSITIVE (NEGATIVE) H 11/06/18 10:22 HIV 1&2 Antibody Screen NEGATIVE (NEG) 11/06/18 10:22 - Physical Exam Vitals and I&O: Vital Signs Temp 97.9 F 11/07/18 08:00 Pulse 119 11/07/18 10:11 Resp 32 11/07/18 10:11 BP 125/75 11/07/18 10:00 Pulse Ox 100 11/07/18 10:11 Intake & Output 11/06/18 11/07/18 11/07/18 18:59 06:59 18:59 Intake Total 2600 4756.666 Output Total 800 1350 Balance 1800 3406.666 Weight (lbs) 61.326 kg 61.405 kg Intake: Intake, IV Amount 1300 3956.666 D5-0.9%Ns 1,000 ml @ 125 1816.666 mls/hr IV .Q8H [facility] Rx#: [id number] Fluconazole 400mg/200mL 200 400 mg In 200 ml @ 100 mls/hr IV Q24HR [facility] Rx#: [id number] Levofloxacin 750mg/150mL 150 750 mg In 150 ml @ 100 mls/hr IV Q24HR [facility] Rx#: [id number] Meropenem 2 gm In Sodium 200 Chloride 0.9% 100 ml @ 100 mls/hr IV Q8HR [facility] Rx #:[id number] Piperacillin Sodium/ 100 Tazobact 4.5 gm In Sodium Chloride 0.9% 100 ml @ 100 mls/hr IV Q8HR [facility] Rx #:[id number] Sodium Chloride 0.9% 1, 1000 000 ml @ Wide Open IV . Q0M [facility] Rx#:[id number] Sulfamethoxazole/TMP 20 1040 ml In Dextrose 5% 500 ml @ 346.667 mls/hr IV Q8H [facility] Rx#:[id number] Vancomycin HCl 1 gm In 750 Sodium Chloride 0.9% 250 ml @ 166.667 mls/hr IV Q6H [facility] Rx#:[id number] Oral 250 800 Other 1050 Output: Urine 800 1350 Other: # Bowel Movements 1 0 Stool Characteristics Soft Weight Source Bedscale Bedscale Active Medications: Current Medications Acetaminophen (Tylenol) 650 mg PO Q4H PRN PRN Reason: Pain Or Fever above 101 Stop: 01/05/19 12:37 Last Admin: 11/06/18 21:46 Dose: 650 mg Al Hydrox/Mg Hydrox/Simethicone (Maalox) 30 ml PO Q6H PRN PRN Reason: Dyspepsia Stop: 01/05/19 12:37 Albuterol Sulfate (Albuterol 2.5mg/3ml Neb Ud) 2.5 mg HHN QIDRT [facility] Stop: 01/05/19 14:59 Last Admin: 11/07/18 10:09 Dose: 2.5 mg Alprazolam (Xanax) 0.25 mg PO Q8HR PRN; Protocol PRN Reason: Anxiety Stop: 01/05/19 20:19 Last Admin: 11/06/18 21:47 Dose: 0.25 mg Filgrastim (Neupogen) 480 mcg SUBQ DAILY [facility] Stop: 01/05/19 18:44 Last Admin: 11/07/18 13:29 Dose: 480 mcg Guaifenesin (Robitussin) 200 mg PO Q4HR PRN PRN Reason: Cough or Congestion Stop: 01/05/19 12:37 Heparin Sodium (Porcine) (Heparin) 5,000 units SUBQ Q12HR [facility] Stop: 01/05/19 20:59 Last Admin: 11/07/18 10:16 Dose: 5,000 units Dextrose/Sodium Chloride (D5-0.9%Ns) 1,000 mls @ 125 mls/hr IV .Q8H [facility] Stop: 01/05/19 12:44 Last Admin: 11/07/18 04:45 Dose: 125 mls/hr Fluconazole/Sodium Chloride (Diflucan) 400 mg in 200 mls @ 100 mls/hr IV Q24HR [facility] Stop: 01/05/19 13:59 Last Infusion: 11/06/18 16:15 Dose: Infused Vancomycin HCl 1 gm/ Sodium (Chloride) 250 mls @ 166.667 mls/hr IV Q6H [facility] Stop: 01/05/19 14:59 Last Admin: 11/07/18 08:50 Dose: 165 mls/hr Trimethoprim/Sulfamethoxazole (20 ml/ Dextrose) 520 mls @ 346.667 mls/hr IV Q8H [facility] Stop: 01/05/19 18:29 Last Admin: 11/07/18 10:15 Dose: 346 mls/hr Levofloxacin (Levaquin Pb) 750 mg in 150 mls @ 100 mls/hr IV Q24HR [facility] Stop: 11/12/18 20:29 Last Infusion: 11/06/18 21:25 Dose: Infused Meropenem 2 gm/ Sodium (Chloride) 100 mls @ 100 mls/hr IV Q8HR@0300,1100,1900 [facility] Stop: 01/05/19 20:59 Last Admin: 11/07/18 13:27 Dose: 100 mls/hr Ipratropium [place] (Atrovent Neb 0.5mg/2.5ml) 0.5 mg IH QIDRT [facility] Stop: 01/05/19 14:59 Last Admin: 11/07/18 10:09 Dose: 0.5 mg Methylprednisolone Sodium Succinate (Solu-Medrol) 80 mg IVP Q8HR [facility] Stop: 01/05/19 12:59 Last Admin: 11/07/18 13:27 Dose: 80 mg Miscellaneous (Vancomycin Iv Per Pharmacy) 1 ea [facility] PRN PRN PRN Reason: VANCOMYCIN IV PER RX Stop: 01/05/19 13:19 Morphine Sulfate (Morphine) 2 mg IVP Q4H PRN PRN Reason: Pain (Severe) Stop: 01/05/19 12:37 Last Admin: 11/07/18 04:45 Dose: 2 mg Ondansetron HCl (Zofran) 4 mg IV Q8H PRN PRN Reason: Nausea / Vomiting Stop: 01/05/19 12:37 Pantoprazole Sodium (Protonix) 40 mg PO QDAC [facility] Stop: 01/05/19 16:29 Last Admin: 11/07/18 06:46 Dose: 40 mg Tramadol HCl (Ultram) 50 mg PO Q6HR PRN PRN Reason: Pain (Moderate) Stop: 01/05/19 20:17 Last Admin: 11/07/18 10:15 Dose: 50 mg Zolpidem Tartrate (Ambien) 10 mg PO HS PRN PRN Reason: Insomnia Stop: 01/05/19 12:37 General: No acute distress HEENT: Atraumatic, Mucous membr. 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 Sx Severe dehydration Severe Sepsis 2/2 UTI Resp Alkalosis - Plan Plan: Lab - Result Diagrams 11/07/18 05:00 11/07/18 05:00 Current Medications Acetaminophen (Tylenol) 650 mg PO Q4H PRN PRN Reason: Pain Or Fever above 101 Stop: 01/05/19 12:37 Last Admin: 11/06/18 21:46 Dose: 650 mg Al Hydrox/Mg Hydrox/Simethicone (Maalox) 30 ml PO Q6H PRN PRN Reason: Dyspepsia Stop: 01/05/19 12:37 Albuterol Sulfate (Albuterol 2.5mg/3ml Neb Ud) 2.5 mg HHN QIDRT [facility] Stop: 01/05/19 14:59 Last Admin: 11/07/18 10:09 Dose: 2.5 mg Alprazolam (Xanax) 0.25 mg PO Q8HR PRN; Protocol PRN Reason: Anxiety Stop: 01/05/19 20:19 Last Admin: 11/06/18 21:47 Dose: 0.25 mg Filgrastim (Neupogen) 480 mcg SUBQ DAILY [facility] Stop: 01/05/19 18:44 Last Admin: 11/07/18 13:29 Dose: 480 mcg Guaifenesin (Robitussin) 200 mg PO Q4HR PRN PRN Reason: Cough or Congestion Stop: 01/05/19 12:37 Heparin Sodium (Porcine) (Heparin) 5,000 units SUBQ Q12HR [facility] Stop: 01/05/19 20:59 Last Admin: 11/07/18 10:16 Dose: 5,000 units Dextrose/Sodium Chloride (D5-0.9%Ns) 1,000 mls @ 125 mls/hr IV .Q8H [facility] Stop: 01/05/19 12:44 Last Admin: 11/07/18 04:45 Dose: 125 mls/hr Fluconazole/Sodium Chloride (Diflucan) 400 mg in 200 mls @ 100 mls/hr IV Q24HR [facility] Stop: 01/05/19 13:59 Last Infusion: 11/06/18 16:15 Dose: Infused Vancomycin HCl 1 gm/ Sodium (Chloride) 250 mls @ 166.667 mls/hr IV Q6H [facility] Stop: 01/05/19 14:59 Last Admin: 11/07/18 08:50 Dose: 165 mls/hr Trimethoprim/Sulfamethoxazole (20 ml/ Dextrose) 520 mls @ 346.667 mls/hr IV Q8H [facility] Stop: 01/05/19 18:29 Last Admin: 11/07/18 10:15 Dose: 346 mls/hr Levofloxacin (Levaquin Pb) 750 mg in 150 mls @ 100 mls/hr IV Q24HR [facility] Stop: 11/12/18 20:29 Last Infusion: 11/06/18 21:25 Dose: Infused Meropenem 2 gm/ Sodium (Chloride) 100 mls @ 100 mls/hr IV Q8HR@0300,1100,1900 [facility] Stop: 01/05/19 20:59 Last Admin: 11/07/18 13:27 Dose: 100 mls/hr Ipratropium [place] (Atrovent Neb 0.5mg/2.5ml) 0.5 mg IH QIDRT [facility] Stop: 01/05/19 14:59 Last Admin: 11/07/18 10:09 Dose: 0.5 mg Methylprednisolone Sodium Succinate (Solu-Medrol) 80 mg IVP Q8HR [facility] Stop: 01/05/19 12:59 Last Admin: 11/07/18 13:27 Dose: 80 mg Miscellaneous (Vancomycin Iv Per Pharmacy) 1 ea [facility] PRN PRN PRN Reason: VANCOMYCIN IV PER RX Stop: 01/05/19 13:19 Morphine Sulfate (Morphine) 2 mg IVP Q4H PRN PRN Reason: Pain (Severe) Stop: 01/05/19 12:37 Last Admin: 11/07/18 04:45 Dose: 2 mg Ondansetron HCl (Zofran) 4 mg IV Q8H PRN PRN Reason: Nausea / Vomiting Stop: 01/05/19 12:37 Pantoprazole Sodium (Protonix) 40 mg PO QDAC [facility] Stop: 01/05/19 16:29 Last Admin: 11/07/18 06:46 Dose: 40 mg Tramadol HCl (Ultram) 50 mg PO Q6HR PRN PRN Reason: Pain (Moderate) Stop: 01/05/19 20:17 Last Admin: 11/07/18 10:15 Dose: 50 mg Zolpidem Tartrate (Ambien) 10 mg PO HS PRN PRN Reason: Insomnia Stop: 01/05/19 12:37 Lab - Result Diagrams 11/07/18 05:00 11/07/18 05:00 Na up to 126 C02 was 17.7 but pC02 @ 22, pH 7.49 suggestive of uncompensated resp alkalosis f/u electrolytes, cbc continue IVF f/u electrolytes, cbc Nutritional Asmnt/Malnutr-PDOC - Dietary Evaluation Malnutrition Findings (Please click <Entered> for more info): Nutritional Asmnt/Malnutrition Start: 11/07/18 10: 55 Text: Status: Complete Freq: Protocol: Document 11/07/18 10:55 [email or web address] (Rec: 11/07/18 11:13 DANAE LASHAWN- [id number]) Nutritional Asmnt/Malnutrition Patient General Information Nutritional Screening High Risk Diagnosis Respiratory Failure, dehydration Pertinent Medical Hx/Surgical Hx None Subjective Information Per H&P, patient positive for cocaine and marijuana. Spoke with patient's sister, who states he has a sore throat and prefers to eat cold foods right now. She also states he eats "kid foods", and likes snack foods. Current Diet Order/ Nutrition Support Regular Patient / S.O Not Indicated Pertinent Medications maalox, solu-medrol, abx, zofran, protonix Pertinent Labs (11/07) Na 126 (improved), glucose 277, Ca 8.2, albumin 2 .7 Nutritional Hx/Data Height 1.78 m Height (Calculated Centimeters) 177.8 Current Weight (lbs) 61.235 kg Weight (Calculated Kilograms) 61.2 Weight (Calculated Grams) 49434.0 [place] Body Weight 166 % [place] Body Weight 81 Body Mass Index (BMI) 19.3 Recent Weight Change No Weight Status Approriate GI Symptoms GI Symptoms None Last BM 11/06 x 2 Difficult in: None Food Allergies No Cultural/Ethnic/[employer] Belief none indicated Usual diet at home Regular Skin Integrity/Comment: Cuco 16, Intact Current %PO Negligible < 25% Estimated Nutritional Goals BEE in Kcals: Using Current wt Calories/Kcals/Kg 61.3kg CBW 30-35 kcal/kg Kcals Calculated ~9915-2059 kcal/day Protein: Using Current wt Protein g/k.2-1.5 gm/kg Protein Calculated ~75-90 gm/day Fluid: ml ~3562-2191 ml/day (1 ml/kcal) Nutritional Problem 1. Problem Problem Inadequate oral intake realted to Etiology possible poor appetite aeb Signs/Symptoms: PO <25% of meals, 81% IBW Intervention/Recommendation Comments 1. Continue regular diet as tolerated by patient. 2. If patient remains hyperglycemic (on Solu-medrol) consider modifying to 60 gm CCHO diet at that time. 3. Encourage oral intake of meals and snacks. 4. Start Ensure Enlive TID with meals Expected Outcomes/Goals Expected Outcomes/Goals PO intake to meet >75% of nutritional needs, weight stability or trend toward ideal body weight, skin intact , nutrition related labs to approach WNL. F/U MR 11/10-
[2018-11-07 14:07] LABS: HEP A AB IGM Negative (Negative); HEP B CORE IGM Negative (Negative); HEP B SURFACE AG QL Negative (Negative); HEP C ANTIBODY <0.1 s/co ratio (0.0-0.9)
--- NOTE | 2018-11-07 14:10 | Internal Medicine Prog Note ---
Internal Medicine Subjective - Subjective Patient seen and examined:: with staff, chart reviewed Patient is:: awake, verbal, interactive, in bed Patient Complaints of:: congestion, cough, pain with urination, LBP, headache, chest pain, unable to sleep Per staff patient has:: no adverse event, poor appetite, tolerating meds Internal Medicine Objective - Results Result Diagrams: 11/07/18 05:00 11/07/18 05:00 Recent Labs: Laboratory Last Values WBC 0.3 Th/cmm (4.8-10.8) L* 11/07/18 05:00 RBC 4.18 Mil/cmm (4.30-5.70) L 11/07/18 05:00 Hgb 12.3 gm/dL (12-16) 11/07/18 05:00 Hct 36.9 % (41.0-60) L 11/07/18 05:00 MCV 88.2 fl (80-99) 11/07/18 05:00 MCH 29.5 pg (26.0-30.0) 11/07/18 05:00 MCHC Differential 33.4 pg (28.0-36.0) 11/07/18 05:00 RDW 11.8 % (11.5-20.0) 11/07/18 05:00 Plt Count 144 Th/cmm (150-400) L D 11/07/18 05:00 MPV 8.5 fl 11/07/18 05:00 Add Manual Diff YES 11/07/18 05:00 Band Neutrophils % 0 % (0-10) 11/07/18 05:00 Neutrophils (Manual) 3 % (40-80) L 11/07/18 05:00 Lymphocytes 82 % (20-50) H 11/07/18 05:00 Monocytes 15 % (2-10) H 11/07/18 05:00 Eosinophils 0 % (0-5) 11/07/18 05:00 Basophils 0 % (0-3) 11/07/18 05:00 Platelet Estimate SLIGHT DECREASED (NORMAL) 11/07/18 05:00 Plt Count 169 Th/cmm (150-750) 11/06/18 18:32 PT 14.1 SECONDS (9.5-11.5) H 11/06/18 18:32 INR 1.38 (0.5-1.4) 11/06/18 18:32 PTT (Actin FS) 51.0 SECONDS (26.0-38.0) H 11/06/18 18:32 Fibrinogen 734.0 mg/dL (200.0-400.0) H 11/06/18 18:32 D-Dimer 3890 ng/mL (100-400) H 11/06/18 18:32 Specimen Source Arterial 11/07/18 07:39 Sample Site Right Radial 11/07/18 07:39 pH 7.498 (7.35-7.45) H 11/07/18 07:39 pCO2 23.3 mmHg (35.0-45.0) L* 11/07/18 07:39 pO2 174.3 mmHg (80.0-100.0) H 11/07/18 07:39 HCO3 17.7 mEq/L (20.0-26.0) L 11/07/18 07:39 Base Excess -3.4 mEq/L (-3.0-3.0) L 11/07/18 07:39 O2 Saturation 99.3 % (92.0-100.0) 11/07/18 07:39 Shiv Test Positive 11/07/18 07:39 Vent Rate NA 11/07/18 07:39 Inspired O2 32 11/07/18 07:39 Tidal Volume NA 11/07/18 07:39 PEEP NA 11/07/18 07:39 Pressure (ins/psv/peep) NA 11/07/18 07:39 Critical Value JG 11/07/18 07:39 Sodium 126 mEq/L (136-145) L 11/07/18 05:00 Potassium 3.5 mEq/L (3.5-5.1) 11/07/18 05:00 Chloride 99 mEq/L (98-107) 11/07/18 05:00 Carbon Dioxide 17.7 mEq/L (21.0-31.0) L 11/07/18 05:00 Anion Gap 12.8 (7.0-16.0) 11/07/18 05:00 BUN 13 mg/dL (7-25) 11/07/18 05:00 Creatinine 0.7 mg/dL (0.7-1.3) 11/07/18 05:00 Est GFR ( Amer) > 60.0 ml/min (>90) 11/07/18 05:00 Est GFR (Non-Af Amer) > 60.0 ml/min 11/07/18 05:00 BUN/Creatinine Ratio 18.6 11/07/18 05:00 Glucose 277 mg/dL (70-105) H D 11/07/18 05:00 Whole Bld Lactic Acid 1.35 mmol/L (0.60-1.99) 11/06/18 12:00 Uric Acid 1.6 mg/dL (4.4-7.6) L 11/07/18 05:00 Calcium 8.2 mg/dL (8.6-10.3) L 11/07/18 05:00 Total Bilirubin 0.5 mg/dL (0.3-1.0) 11/07/18 05:00 AST 20 U/L (13-39) 11/07/18 05:00 ALT 21 U/L (7-52) 11/07/18 05:00 Alkaline Phosphatase 26 U/L (34-104) L 11/07/18 05:00 Lactate Dehydrogenase 119 U/L (140-271) L 11/06/18 18:32 Creatine Kinase 233 U/L (30-223) H 11/06/18 18:32 CK-MB (CK-2) 4.6 ng/mL (0.6-6.3) 11/06/18 18:32 Troponin I 0.03 ng/mL (0.01-0.05) 11/06/18 09:40 Total Protein 5.2 gm/dL (6.0-8.3) L 11/07/18 05:00 Albumin 2.7 gm/dL (4.2-5.5) L 11/07/18 05:00 Globulin 2.5 gm/dL 11/07/18 05:00 Albumin/Globulin Ratio 1.1 (1.0-1.8) 11/07/18 05:00 TSH 1.14 uIU/ml (0.34-5.60) 11/06/18 09:40 Urine Source CLEAN C 11/06/18 10:00 Urine Color ORANGE 11/06/18 10:00 Urine Clarity HAZY (CLEAR) 11/06/18 10:00 Urine pH 6.0 (4.6 - 8.0) 11/06/18 10:00 Ur Specific [place] 1.025 (1.005-1.030) 11/06/18 10:00 Urine Protein >=300 mg/dL (NEGATIVE) 11/06/18 10:00 Urine Glucose (UA) NEGATIVE mg/dL (NEGATIVE) 11/06/18 10:00 Urine Ketones NEGATIVE mg/dL (NEGATIVE) 11/06/18 10:00 Urine Blood LARGE (NEGATIVE) H 11/06/18 10:00 Urine Nitrate POSITIVE (NEGATIVE) H 11/06/18 10:00 Urine Bilirubin NEGATIVE (NEGATIVE) 11/06/18 10:00 Urine Urobilinogen 1.0 E.U./dL (0.2 - 1.0) 11/06/18 10:00 Ur Leukocyte Esterase NEGATIVE (NEGATIVE) 11/06/18 10:00 Urine RBC 2-5 /hpf (0-5) H 11/06/18 10:00 Urine WBC 0-2 /hpf (0-5) 11/06/18 10:00 Ur Epithelial Cells OCCASIONAL /lpf (FEW) 11/06/18 10:00 Urine Bacteria MANY /hpf (NONE SEEN) H 11/06/18 10:00 Vancomycin Trough 10.5 ug/mL (5-10) H 11/07/18 05:00 Urine Opiates Screen NEGATIVE (NEGATIVE) 11/06/18 10:22 Urine Methadone Screen NEGATIVE (NEGATIVE) 11/06/18 10:22 Ur Barbiturates Screen NEGATIVE (NEGATIVE) 11/06/18 10:22 Ur Tricyclics Screen NEGATIVE (NEGATIVE) 11/06/18 10:22 Ur Phencyclidine Scrn NEGATIVE (NEGATIVE) 11/06/18 10:22 Amphetamines Screen NEGATIVE (NEGATIVE) 11/06/18 10:22 U Methamphetamines Scrn NEGATIVE (NEGATIVE) 11/06/18 10:22 U Benzodiazepines Scrn NEGATIVE (NEGATIVE) 11/06/18 10:22 U Cocaine Metab Screen POSITIVE (NEGATIVE) H 11/06/18 10:22 U Cannabinoids Screen POSITIVE (NEGATIVE) H 11/06/18 10:22 Hepatitis A IgM Ab Negative (Negative) 11/06/18 12:00 Hep Bs Antigen Negative (Negative) 11/06/18 12:00 Hep B Core IgM Ab Negative (Negative) 11/06/18 12:00 Hepatitis C Antibody <0.1 s/co ratio (0.0-0.9) 11/06/18 12:00 HIV 1&2 Antibody Screen NEGATIVE (NEG) 11/06/18 10:22 - Physical Exam Vitals and I&O: Vital Signs Temp 97.9 F 11/07/18 08:00 Pulse 119 11/07/18 10:11 Resp 32 11/07/18 10:11 BP 125/75 11/07/18 10:00 Pulse Ox 100 11/07/18 10:11 Intake & Output 11/06/18 11/07/18 11/07/18 18:59 06:59 18:59 Intake Total 2600 4756.666 Output Total 800 1350 Balance 1800 3406.666 Weight (lbs) 61.326 kg 61.405 kg Intake: Intake, IV Amount 1300 3956.666 D5-0.9%Ns 1,000 ml @ 125 1816.666 mls/hr IV .Q8H [facility] Rx#: [id number] Fluconazole 400mg/200mL 200 400 mg In 200 ml @ 100 mls/hr IV Q24HR [facility] Rx#: [id number] Levofloxacin 750mg/150mL 150 750 mg In 150 ml @ 100 mls/hr IV Q24HR [facility] Rx#: [id number] Meropenem 2 gm In Sodium 200 Chloride 0.9% 100 ml @ 100 mls/hr IV Q8HR [facility] Rx #:[id number] Piperacillin Sodium/ 100 Tazobact 4.5 gm In Sodium Chloride 0.9% 100 ml @ 100 mls/hr IV Q8HR [facility] Rx #:[id number] Sodium Chloride 0.9% 1, 1000 000 ml @ Wide Open IV . Q0M [facility] Rx#:[id number] Sulfamethoxazole/TMP 20 1040 ml In Dextrose 5% 500 ml @ 346.667 mls/hr IV Q8H [facility] Rx#:[id number] Vancomycin HCl 1 gm In 750 Sodium Chloride 0.9% 250 ml @ 166.667 mls/hr IV Q6H [facility] Rx#:[id number] Oral 250 800 Other 1050 Output: Urine 800 1350 Other: # Bowel Movements 1 0 Stool Characteristics Soft Weight Source Bedscale Bedscale Active Medications: Current Medications Acetaminophen (Tylenol) 650 mg PO Q4H PRN PRN Reason: Pain Or Fever above 101 Stop: 01/05/19 12:37 Last Admin: 11/06/18 21:46 Dose: 650 mg Al Hydrox/Mg Hydrox/Simethicone (Maalox) 30 ml PO Q6H PRN PRN Reason: Dyspepsia Stop: 01/05/19 12:37 Albuterol Sulfate (Albuterol 2.5mg/3ml Neb Ud) 2.5 mg HHN QIDRT [facility] Stop: 01/05/19 14:59 Last Admin: 11/07/18 10:09 Dose: 2.5 mg Alprazolam (Xanax) 0.25 mg PO Q8HR PRN; Protocol PRN Reason: Anxiety Stop: 01/05/19 20:19 Last Admin: 11/06/18 21:47 Dose: 0.25 mg Filgrastim (Neupogen) 480 mcg SUBQ DAILY [facility] Stop: 01/05/19 18:44 Last Admin: 11/07/18 13:29 Dose: 480 mcg Guaifenesin (Robitussin) 200 mg PO Q4HR PRN PRN Reason: Cough or Congestion Stop: 01/05/19 12:37 Heparin Sodium (Porcine) (Heparin) 5,000 units SUBQ Q12HR [facility] Stop: 01/05/19 20:59 Last Admin: 11/07/18 10:16 Dose: 5,000 units Dextrose/Sodium Chloride (D5-0.9%Ns) 1,000 mls @ 125 mls/hr IV .Q8H [facility] Stop: 01/05/19 12:44 Last Admin: 11/07/18 04:45 Dose: 125 mls/hr Fluconazole/Sodium Chloride (Diflucan) 400 mg in 200 mls @ 100 mls/hr IV Q24HR [facility] Stop: 01/05/19 13:59 Last Infusion: 11/06/18 16:15 Dose: Infused Vancomycin HCl 1 gm/ Sodium (Chloride) 250 mls @ 166.667 mls/hr IV Q6H [facility] Stop: 01/05/19 14:59 Last Admin: 11/07/18 08:50 Dose: 165 mls/hr Trimethoprim/Sulfamethoxazole (20 ml/ Dextrose) 520 mls @ 346.667 mls/hr IV Q8H [facility] Stop: 01/05/19 18:29 Last Admin: 11/07/18 10:15 Dose: 346 mls/hr Levofloxacin (Levaquin Pb) 750 mg in 150 mls @ 100 mls/hr IV Q24HR [facility] Stop: 11/12/18 20:29 Last Infusion: 11/06/18 21:25 Dose: Infused Meropenem 2 gm/ Sodium (Chloride) 100 mls @ 100 mls/hr IV Q8HR@0300,1100,1900 [facility] Stop: 01/05/19 20:59 Last Admin: 11/07/18 13:27 Dose: 100 mls/hr Ibuprofen (Motrin) 800 mg PO TID PRN PRN Reason: Pain (Moderate) Stop: 01/06/19 20:59 Ipratropium Sells (Atrovent Neb 0.5mg/2.5ml) 0.5 mg IH QIDRT [facility] Stop: 01/05/19 14:59 Last Admin: 11/07/18 10:09 Dose: 0.5 mg Methylprednisolone Sodium Succinate (Solu-Medrol) 80 mg IVP Q8HR [facility] Stop: 01/05/19 12:59 Last Admin: 11/07/18 13:27 Dose: 80 mg Miscellaneous (Vancomycin Iv Per Pharmacy) 1 ea [facility] PRN PRN PRN Reason: VANCOMYCIN IV PER RX Stop: 01/05/19 13:19 Morphine Sulfate (Morphine) 2 mg IVP Q4H PRN PRN Reason: Pain (Severe) Stop: 01/05/19 12:37 Last Admin: 11/07/18 04:45 Dose: 2 mg Ondansetron HCl (Zofran) 4 mg IV Q8H PRN PRN Reason: Nausea / Vomiting Stop: 01/05/19 12:37 Pantoprazole Sodium (Protonix) 40 mg PO QDAC [facility] Stop: 01/05/19 16:29 Last Admin: 11/07/18 06:46 Dose: 40 mg Tramadol HCl (Ultram) 50 mg PO Q6HR PRN PRN Reason: Pain (Moderate) Stop: 01/05/19 20:17 Last Admin: 11/07/18 10:15 Dose: 50 mg Zolpidem Tartrate (Ambien) 10 mg PO HS PRN PRN Reason: Insomnia Stop: 01/05/19 12:37 General: alert HEENT: NC/AT, PERRLA, EOMI Neck: Supple Lungs: rales, ronchi Cardiovascular: RRR, Normal S1, Normal S2, tachy Abdomen: soft, tender, positive bowel sound Extremities: excoriation Neurological: no change Internal Medicine Assmt/Plan - Assessment Assessment: ASSESSMENT AND PLAN: 1. Sepsis, atypical pneumonia, generalized rash. 2. Substance abuse, hyponatremia, tachycardia. pulm infiltrates tachycardia lbp - Plan Plan: The patient had a CT chest, which showed ill-defined multilobar infiltrates throughout the lung could be inflammatory in nature. We will empirically start the patient on broad-spectrum antibiotic, vancomycin, Zosyn, as well as Diflucan. We will send for HIV as well as hepatitis panel. We will refer the patient to Pulmonary and Infectious Disease as well as Renal. Continue on aggressive IV hydration. Case was discussed with the patient and mother as well as his sisters and nurse and sister's fiance. The patient prognosis is guarded. The patient to remain in ICU. We will continue monitoring the patient closely. The patient is a full code. dw family members at bedside and w dr pollack Nutritional Asmnt/Malnutr-PDOC - Dietary Evaluation Malnutrition Findings (Please click <Entered> for more info): Nutritional Asmnt/Malnutrition Start: 11/07/18 10: 55 Text: Status: Complete Freq: Protocol: Document 11/07/18 10:55 DANAE (Rec: 11/07/18 11:13 DANAE HARDIN- [id number]) Nutritional Asmnt/Malnutrition Patient General Information Nutritional Screening High Risk Diagnosis Respiratory Failure, dehydration Pertinent Medical Hx/Surgical Hx None Subjective Information Per H&P, patient positive for cocaine and marijuana. Spoke with patient's sister, who states he has a sore throat and prefers to eat cold foods right now. She also states he eats "kid foods", and likes snack foods. Current Diet Order/ Nutrition Support Regular Patient / S.O Not Indicated Pertinent Medications maalox, solu-medrol, abx, zofran, protonix Pertinent Labs (11/07) Na 126 (improved), glucose 277, Ca 8.2, albumin 2 .7 Nutritional Hx/Data Height 1.78 m Height (Calculated Centimeters) 177.8 Current Weight (lbs) 61.235 kg Weight (Calculated Kilograms) 61.2 Weight (Calculated Grams) 57228.0 [place] Body Weight 166 % [place] Body Weight 81 Body Mass Index (BMI) 19.3 Recent Weight Change No Weight Status Approriate GI Symptoms GI Symptoms None Last BM 11/06 x 2 Difficult in: None Food Allergies No Cultural/Ethnic/Zoroastrian Belief none indicated Usual diet at home Regular Skin Integrity/Comment: Cuco 16, Intact Current %PO Negligible < 25% Estimated Nutritional Goals BEE in Kcals: Using Current wt Calories/Kcals/Kg 61.3kg CBW 30-35 kcal/kg Kcals Calculated ~9382-4797 kcal/day Protein: Using Current wt Protein g/k.2-1.5 gm/kg Protein Calculated ~75-90 gm/day Fluid: ml ~6785-7790 ml/day (1 ml/kcal) Nutritional Problem 1. Problem Problem Inadequate oral intake realted to Etiology possible poor appetite aeb Signs/Symptoms: PO <25% of meals, 81% IBW Intervention/Recommendation Comments 1. Continue regular diet as tolerated by patient. 2. If patient remains hyperglycemic (on Solu-medrol) consider modifying to 60 gm CCHO diet at that time. 3. Encourage oral intake of meals and snacks. 4. Start Ensure Enlive TID with meals Expected Outcomes/Goals Expected Outcomes/Goals PO intake to meet >75% of nutritional needs, weight stability or trend toward ideal body weight, skin intact , nutrition related labs to approach WNL. F/U MR
--- NOTE | 2018-11-07 14:18 | General Progress Note ---
Subjective - Review of Systems Service Date: 11/07/18 Subjective: cough with phlegm, occasionally bloody Objective - Results Result Diagrams: 11/07/18 05:00 11/07/18 05:00 Recent Labs: Laboratory Last Values WBC 0.3 Th/cmm (4.8-10.8) L* 11/07/18 05:00 RBC 4.18 Mil/cmm (4.30-5.70) L 11/07/18 05:00 Hgb 12.3 gm/dL (12-16) 11/07/18 05:00 Hct 36.9 % (41.0-60) L 11/07/18 05:00 MCV 88.2 fl (80-99) 11/07/18 05:00 MCH 29.5 pg (26.0-30.0) 11/07/18 05:00 MCHC Differential 33.4 pg (28.0-36.0) 11/07/18 05:00 RDW 11.8 % (11.5-20.0) 11/07/18 05:00 Plt Count 144 Th/cmm (150-400) L D 11/07/18 05:00 MPV 8.5 fl 11/07/18 05:00 Add Manual Diff YES 11/07/18 05:00 Band Neutrophils % 0 % (0-10) 11/07/18 05:00 Neutrophils (Manual) 3 % (40-80) L 11/07/18 05:00 Lymphocytes 82 % (20-50) H 11/07/18 05:00 Monocytes 15 % (2-10) H 11/07/18 05:00 Eosinophils 0 % (0-5) 11/07/18 05:00 Basophils 0 % (0-3) 11/07/18 05:00 Platelet Estimate SLIGHT DECREASED (NORMAL) 11/07/18 05:00 Plt Count 169 Th/cmm (150-750) 11/06/18 18:32 PT 14.1 SECONDS (9.5-11.5) H 11/06/18 18:32 INR 1.38 (0.5-1.4) 11/06/18 18:32 PTT (Actin FS) 51.0 SECONDS (26.0-38.0) H 11/06/18 18:32 Fibrinogen 734.0 mg/dL (200.0-400.0) H 11/06/18 18:32 D-Dimer 3890 ng/mL (100-400) H 11/06/18 18:32 Specimen Source Arterial 11/07/18 07:39 Sample Site Right Radial 11/07/18 07:39 pH 7.498 (7.35-7.45) H 11/07/18 07:39 pCO2 23.3 mmHg (35.0-45.0) L* 11/07/18 07:39 pO2 174.3 mmHg (80.0-100.0) H 11/07/18 07:39 HCO3 17.7 mEq/L (20.0-26.0) L 11/07/18 07:39 Base Excess -3.4 mEq/L (-3.0-3.0) L 11/07/18 07:39 O2 Saturation 99.3 % (92.0-100.0) 11/07/18 07:39 Shiv Test Positive 11/07/18 07:39 Vent Rate NA 11/07/18 07:39 Inspired O2 32 11/07/18 07:39 Tidal Volume NA 11/07/18 07:39 PEEP NA 11/07/18 07:39 Pressure (ins/psv/peep) NA 11/07/18 07:39 Critical Value JG 11/07/18 07:39 Sodium 126 mEq/L (136-145) L 11/07/18 05:00 Potassium 3.5 mEq/L (3.5-5.1) 11/07/18 05:00 Chloride 99 mEq/L (98-107) 11/07/18 05:00 Carbon Dioxide 17.7 mEq/L (21.0-31.0) L 11/07/18 05:00 Anion Gap 12.8 (7.0-16.0) 11/07/18 05:00 BUN 13 mg/dL (7-25) 11/07/18 05:00 Creatinine 0.7 mg/dL (0.7-1.3) 11/07/18 05:00 Est GFR ( Amer) > 60.0 ml/min (>90) 11/07/18 05:00 Est GFR (Non-Af Amer) > 60.0 ml/min 11/07/18 05:00 BUN/Creatinine Ratio 18.6 11/07/18 05:00 Glucose 277 mg/dL (70-105) H D 11/07/18 05:00 Whole Bld Lactic Acid 1.35 mmol/L (0.60-1.99) 11/06/18 12:00 Uric Acid 1.6 mg/dL (4.4-7.6) L 11/07/18 05:00 Calcium 8.2 mg/dL (8.6-10.3) L 11/07/18 05:00 Total Bilirubin 0.5 mg/dL (0.3-1.0) 11/07/18 05:00 AST 20 U/L (13-39) 11/07/18 05:00 ALT 21 U/L (7-52) 11/07/18 05:00 Alkaline Phosphatase 26 U/L (34-104) L 11/07/18 05:00 Lactate Dehydrogenase 119 U/L (140-271) L 11/06/18 18:32 Creatine Kinase 233 U/L (30-223) H 11/06/18 18:32 CK-MB (CK-2) 4.6 ng/mL (0.6-6.3) 11/06/18 18:32 Troponin I 0.03 ng/mL (0.01-0.05) 11/06/18 09:40 Total Protein 5.2 gm/dL (6.0-8.3) L 11/07/18 05:00 Albumin 2.7 gm/dL (4.2-5.5) L 11/07/18 05:00 Globulin 2.5 gm/dL 11/07/18 05:00 Albumin/Globulin Ratio 1.1 (1.0-1.8) 11/07/18 05:00 TSH 1.14 uIU/ml (0.34-5.60) 11/06/18 09:40 Urine Source CLEAN C 11/06/18 10:00 Urine Color ORANGE 11/06/18 10:00 Urine Clarity HAZY (CLEAR) 11/06/18 10:00 Urine pH 6.0 (4.6 - 8.0) 11/06/18 10:00 Ur Specific [place] 1.025 (1.005-1.030) 11/06/18 10:00 Urine Protein >=300 mg/dL (NEGATIVE) 11/06/18 10:00 Urine Glucose (UA) NEGATIVE mg/dL (NEGATIVE) 11/06/18 10:00 Urine Ketones NEGATIVE mg/dL (NEGATIVE) 11/06/18 10:00 Urine Blood LARGE (NEGATIVE) H 11/06/18 10:00 Urine Nitrate POSITIVE (NEGATIVE) H 11/06/18 10:00 Urine Bilirubin NEGATIVE (NEGATIVE) 11/06/18 10:00 Urine Urobilinogen 1.0 E.U./dL (0.2 - 1.0) 11/06/18 10:00 Ur Leukocyte Esterase NEGATIVE (NEGATIVE) 11/06/18 10:00 Urine RBC 2-5 /hpf (0-5) H 11/06/18 10:00 Urine WBC 0-2 /hpf (0-5) 11/06/18 10:00 Ur Epithelial Cells OCCASIONAL /lpf (FEW) 11/06/18 10:00 Urine Bacteria MANY /hpf (NONE SEEN) H 11/06/18 10:00 Vancomycin Trough 10.5 ug/mL (5-10) H 11/07/18 05:00 Urine Opiates Screen NEGATIVE (NEGATIVE) 11/06/18 10:22 Urine Methadone Screen NEGATIVE (NEGATIVE) 11/06/18 10:22 Ur Barbiturates Screen NEGATIVE (NEGATIVE) 11/06/18 10:22 Ur Tricyclics Screen NEGATIVE (NEGATIVE) 11/06/18 10:22 Ur Phencyclidine Scrn NEGATIVE (NEGATIVE) 11/06/18 10:22 Amphetamines Screen NEGATIVE (NEGATIVE) 11/06/18 10:22 U Methamphetamines Scrn NEGATIVE (NEGATIVE) 11/06/18 10:22 U Benzodiazepines Scrn NEGATIVE (NEGATIVE) 11/06/18 10:22 U Cocaine Metab Screen POSITIVE (NEGATIVE) H 11/06/18 10:22 U Cannabinoids Screen POSITIVE (NEGATIVE) H 11/06/18 10:22 Hepatitis A IgM Ab Negative (Negative) 11/06/18 12:00 Hep Bs Antigen Negative (Negative) 11/06/18 12:00 Hep B Core IgM Ab Negative (Negative) 11/06/18 12:00 Hepatitis C Antibody <0.1 s/co ratio (0.0-0.9) 11/06/18 12:00 HIV 1&2 Antibody Screen NEGATIVE (NEG) 11/06/18 10:22 - Physical Exam Vitals and I&O: Vital Signs Temp 97.9 F 11/07/18 08:00 Pulse 119 11/07/18 10:11 Resp 32 11/07/18 10:11 BP 125/75 11/07/18 10:00 Pulse Ox 100 11/07/18 10:11 Intake & Output 11/06/18 11/07/18 11/07/18 18:59 06:59 18:59 Intake Total 2600 4756.666 Output Total 800 1350 Balance 1800 3406.666 Weight (lbs) 61.326 kg 61.405 kg Intake: Intake, IV Amount 1300 3956.666 D5-0.9%Ns 1,000 ml @ 125 1816.666 mls/hr IV .Q8H [facility] Rx#: [id number] Fluconazole 400mg/200mL 200 400 mg In 200 ml @ 100 mls/hr IV Q24HR [facility] Rx#: [id number] Levofloxacin 750mg/150mL 150 750 mg In 150 ml @ 100 mls/hr IV Q24HR [facility] Rx#: [id number] Meropenem 2 gm In Sodium 200 Chloride 0.9% 100 ml @ 100 mls/hr IV Q8HR [facility] Rx #:[id number] Piperacillin Sodium/ 100 Tazobact 4.5 gm In Sodium Chloride 0.9% 100 ml @ 100 mls/hr IV Q8HR [facility] Rx #:[id number] Sodium Chloride 0.9% 1, 1000 000 ml @ Wide Open IV . Q0M [facility] Rx#:[id number] Sulfamethoxazole/TMP 20 1040 ml In Dextrose 5% 500 ml @ 346.667 mls/hr IV Q8H [facility] Rx#:[id number] Vancomycin HCl 1 gm In 750 Sodium Chloride 0.9% 250 ml @ 166.667 mls/hr IV Q6H [facility] Rx#:[id number] Oral 250 800 Other 1050 Output: Urine 800 1350 Other: # Bowel Movements 1 0 Stool Characteristics Soft Weight Source Bedscale Bedscale Active Medications: Current Medications Acetaminophen (Tylenol) 650 mg PO Q4H PRN PRN Reason: Pain Or Fever above 101 Stop: 01/05/19 12:37 Last Admin: 11/06/18 21:46 Dose: 650 mg Al Hydrox/Mg Hydrox/Simethicone (Maalox) 30 ml PO Q6H PRN PRN Reason: Dyspepsia Stop: 01/05/19 12:37 Albuterol Sulfate (Albuterol 2.5mg/3ml Neb Ud) 2.5 mg HHN QIDRT [facility] Stop: 01/05/19 14:59 Last Admin: 11/07/18 10:09 Dose: 2.5 mg Alprazolam (Xanax) 0.25 mg PO Q8HR PRN; Protocol PRN Reason: Anxiety Stop: 01/05/19 20:19 Last Admin: 11/06/18 21:47 Dose: 0.25 mg Filgrastim (Neupogen) 480 mcg SUBQ DAILY [facility] Stop: 01/05/19 18:44 Last Admin: 11/07/18 13:29 Dose: 480 mcg Guaifenesin (Robitussin) 200 mg PO Q4HR PRN PRN Reason: Cough or Congestion Stop: 01/05/19 12:37 Heparin Sodium (Porcine) (Heparin) 5,000 units SUBQ Q12HR [facility] Stop: 01/05/19 20:59 Last Admin: 11/07/18 10:16 Dose: 5,000 units Dextrose/Sodium Chloride (D5-0.9%Ns) 1,000 mls @ 125 mls/hr IV .Q8H [facility] Stop: 01/05/19 12:44 Last Admin: 11/07/18 04:45 Dose: 125 mls/hr Fluconazole/Sodium Chloride (Diflucan) 400 mg in 200 mls @ 100 mls/hr IV Q24HR [facility] Stop: 01/05/19 13:59 Last Infusion: 11/06/18 16:15 Dose: Infused Vancomycin HCl 1 gm/ Sodium (Chloride) 250 mls @ 166.667 mls/hr IV Q6H [facility] Stop: 01/05/19 14:59 Last Admin: 11/07/18 08:50 Dose: 165 mls/hr Trimethoprim/Sulfamethoxazole (20 ml/ Dextrose) 520 mls @ 346.667 mls/hr IV Q8H [facility] Stop: 01/05/19 18:29 Last Admin: 11/07/18 10:15 Dose: 346 mls/hr Levofloxacin (Levaquin Pb) 750 mg in 150 mls @ 100 mls/hr IV Q24HR [facility] Stop: 11/12/18 20:29 Last Infusion: 11/06/18 21:25 Dose: Infused Meropenem 2 gm/ Sodium (Chloride) 100 mls @ 100 mls/hr IV Q8HR@0300,1100,1900 [facility] Stop: 01/05/19 20:59 Last Admin: 11/07/18 13:27 Dose: 100 mls/hr Ibuprofen (Motrin) 800 mg PO TID PRN PRN Reason: Pain (Moderate) Stop: 01/06/19 20:59 Ipratropium Mcdonald (Atrovent Neb 0.5mg/2.5ml) 0.5 mg IH QIDRT [facility] Stop: 01/05/19 14:59 Last Admin: 11/07/18 10:09 Dose: 0.5 mg Methylprednisolone Sodium Succinate (Solu-Medrol) 80 mg IVP Q8HR [facility] Stop: 01/05/19 12:59 Last Admin: 11/07/18 13:27 Dose: 80 mg Miscellaneous (Vancomycin Iv Per Pharmacy) 1 ea [facility] PRN PRN PRN Reason: VANCOMYCIN IV PER RX Stop: 01/05/19 13:19 Morphine Sulfate (Morphine) 2 mg IVP Q4H PRN PRN Reason: Pain (Severe) Stop: 01/05/19 12:37 Last Admin: 11/07/18 04:45 Dose: 2 mg Ondansetron HCl (Zofran) 4 mg IV Q8H PRN PRN Reason: Nausea / Vomiting Stop: 01/05/19 12:37 Pantoprazole Sodium (Protonix) 40 mg PO QDAC [facility] Stop: 01/05/19 16:29 Last Admin: 11/07/18 06:46 Dose: 40 mg Tramadol HCl (Ultram) 50 mg PO Q6HR PRN PRN Reason: Pain (Severe) Stop: 01/05/19 20:17 Last Admin: 11/07/18 10:15 Dose: 50 mg Zolpidem Tartrate (Ambien) 10 mg PO HS PRN PRN Reason: Insomnia Stop: 01/05/19 12:37 General: No acute distress HEENT: Atraumatic, Mucous membr. moist/pink Neck: Supple, Thyromegaly Cardiovascular: Regular rate, Normal S1, Normal S2 Lungs: Clear to auscultation Abdomen: Bowel sounds, Soft Extremities: no Edema Neurological: Sensation intact Skin: no Rash Psych/Mental Status: Mood NL Assessment/Plan - Assessment Assessment: * Neutropenia : could be bone marrow suppression likely vs. leukemic infilterate less likely. will need bone marrow to evaluate. Pal More Dr. pathologist who confirmed no leukemia cells on peripheral smear. Continue with current antibiotics and will do marrow biopsy/aspirate when kit is available. Full consult dictated. Nutritional Asmnt/Malnutr-PDOC - Dietary Evaluation Malnutrition Findings (Please click <Entered> for more info): Nutritional Asmnt/Malnutrition Start: 11/07/18 10: 55 Text: Status: Complete Freq: Protocol: Document 11/07/18 10:55 [email or web address] (Rec: 11/07/18 11:13 MMULHERN LASHAWN- [id number]) Nutritional Asmnt/Malnutrition Patient General Information Nutritional Screening High Risk Diagnosis Respiratory Failure, dehydration Pertinent Medical Hx/Surgical Hx None Subjective Information Per H&P, patient positive for cocaine and marijuana. Spoke with patient's sister, who states he has a sore throat and prefers to eat cold foods right now. She also states he eats "kid foods", and likes snack foods. Current Diet Order/ Nutrition Support Regular Patient / S.O Not Indicated Pertinent Medications maalox, solu-medrol, abx, zofran, protonix Pertinent Labs (11/07) Na 126 (improved), glucose 277, Ca 8.2, albumin 2 .7 Nutritional Hx/Data Height 1.78 m Height (Calculated Centimeters) 177.8 Current Weight (lbs) 61.235 kg Weight (Calculated Kilograms) 61.2 Weight (Calculated Grams) 02265.0 [place] Body Weight 166 % [place] Body Weight 81 Body Mass Index (BMI) 19.3 Recent Weight Change No Weight Status Approriate GI Symptoms GI Symptoms None Last BM 11/06 x 2 Difficult in: None Food Allergies No Cultural/Ethnic/Quaker Belief none indicated Usual diet at home Regular Skin Integrity/Comment: Cuco 16, Intact Current %PO Negligible < 25% Estimated Nutritional Goals BEE in Kcals: Using Current wt Calories/Kcals/Kg 61.3kg CBW 30-35 kcal/kg Kcals Calculated ~5418-2090 kcal/day Protein: Using Current wt Protein g/k.2-1.5 gm/kg Protein Calculated ~75-90 gm/day Fluid: ml ~8987-6346 ml/day (1 ml/kcal) Nutritional Problem 1. Problem Problem Inadequate oral intake realted to Etiology possible poor appetite aeb Signs/Symptoms: PO <25% of meals, 81% IBW Intervention/Recommendation Comments 1. Continue regular diet as tolerated by patient. 2. If patient remains hyperglycemic (on Solu-medrol) consider modifying to 60 gm CCHO diet at that time. 3. Encourage oral intake of meals and snacks. 4. Start Ensure Enlive TID with meals Expected Outcomes/Goals Expected Outcomes/Goals PO intake to meet >75% of nutritional needs, weight stability or trend toward ideal body weight, skin intact , nutrition related labs to approach WNL. F/U MR
[2018-11-07] MEDS ORDERED: Dextrose 50% 50 mL Abboject IVP PRN (14:24)
[2018-11-07] MEDS ORDERED: GLUCAGON HCl 1 MG KIT IM PRN (14:24)
[2018-11-07] MEDS: Fluconazole 400mg/200mL 400 MG/200 ML BAG IV SCH (14:32)
--- NOTE | 2018-11-07 17:05 | Consultation ---
DATE OF CONSULTATION: HEMATOLOGY-ONCOLOGY CONSULTATION REFERRING PHYSICIAN: Jericho Bai DO REASON FOR CONSULTATION: Leukopenia. HISTORY OF PRESENT ILLNESS: The patient is a 38-year-old male with no prior chronic medical problems. The patient was admitted to the hospital with weakness and shortness of breath and found to have multifocal lung consolidation and urinary tract infection. He was started on IV antibiotics and I was asked to evaluate from the neutropenia standpoint. The patient was discussed on the phone ____. 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 PAST MEDICAL HISTORY: No chronic medical problems. SOCIAL HISTORY: He uses marijuana and cocaine. He was positive for both marijuana and cocaine in the urine. PAST SURGICAL HISTORY: None. PRESCRIPTION MEDICATIONS PRIOR TO ADMISSION: None. PHYSICAL EXAMINATION: GENERAL: He is awake, conversing. VITAL SIGNS: Stable, not on vasopressors. The patient admitted having chills multiple times. Blood pressure 125/75, pulse 120, saturation 99% on nasal cannula, respiratory rate 20-24. HEENT: Unremarkable. No mucosal lesions or bleeding. NECK: Supple. CHEST: Scattered rhonchi. ABDOMEN: Soft. No organomegaly. EXTREMITIES: No edema. NERVOUS SYSTEM: No focal deficits. LABORATORY WORK: White count is 0.3, hemoglobin 12.3, platelets from admission 204 and from this morning 144. Differential count, neutrophils 3%, lymphocytes 82%, monocytes 15%. INR 1.3, PTT 51, and D-dimer 3890. Chemistry: Creatinine is 0.7, sodium from admission 121 and now 126. Liver functions normal. Bilirubin from admission was 1.6 and now is 0.5. Albumin 2.7. ASSESSMENT AND PLAN: Neutropenia. On reviewing the peripheral smear, no leukemic cells were seen and hardly any neutrophils were seen. Also, the lymphocytes are normal looking. They do not look like hairy lymphocytes or lymphoblasts. Otherwise, no early myeloid forms were seen. The presentation with multifocal pneumonia and urinary tract infection in this patient can be from leukemic process causing the neutropenia and increasing his risk for infection of multiple types and could be that he had altered mental status from the hyponatremia and drug use causing him to aspirate and pneumonia, which was left untreated causing the fever and chills for a few days under the consequence of bone marrow suppression. Therefore, bone marrow biopsy will help in sorting out this situation. I will try to discuss with the pathologist and obtain bone marrow kit to do the bone marrow biopsy to get the process going meanwhile. The patient will be given Neupogen support and correct his hyponatremia and the pneumonia and the urinary tract infection to hopefully optimize his situation until the diagnosis is sorted out in the next few days also. Fibrinogen level was ordered on admission and is still pending. I discussed with the lab and I was informed that it will be reported later. Case was discussed with the daughter who is a nurse at bedside and the rest of the family. Thank you, Dr. Bai, for the opportunity to participate in the care of this interesting case with you. JOB# [id number]
--- NOTE | 2018-11-07 18:12 | Operative Report ---
DATE OF SURGERY: 11/07/2018 PROCEDURE NAME: Bone marrow aspiration and biopsy. INDICATIONS: Severe neutropenia, rule out leukemia. The patient was explained the procedure, consent was obtained after answering all questions regarding benefits and side effects. The left posterior iliac crest was prepped with iodine and local infiltration anesthesia and under aseptic technique, the bone marrow aspiration was done with an [place] needle followed by bone marrow biopsy with a Jamsh[place] needle. The area was dressed and there was no bleeding, the blood loss is like [address] Blackwell, pathologist was contacted and he will come to handle the specimens including two purple top tubes with aspirates, two green top heparin sodium tubes with aspirin and 1 purple top with clot and a bone marrow biopsy in formalin. All the specimens will be sent for morphology with cytogenetics, flow cytometry and leukemia panel. Discussed the case with Dr. Blackwell who will arrange for pickup from [employer] [facility] [employer]. JOB# [id number]
[2018-11-07] MEDS: INSULIN LISPRO SLIDING SCALE 100 UNITS/ML UNIT SUBQ SCH (18:17)
[2018-11-07] MEDS: Levofloxacin 750mg/150mL 750 MG/150 ML BAG IV SCH (19:53)
[2018-11-07] MEDS ORDERED: IOHEXOL 350mgI/mL 100mL Bottle IVP ONE (20:41)
[2018-11-07] MEDS ORDERED: IOHEXOL 350mgI/mL 150mL IV ONE (21:28)
[2018-11-08] MEDS: INSULIN LISPRO SLIDING SCALE 100 UNITS/ML UNIT SUBQ SCH ×4 (00:14→17:54)
[2018-11-08] MEDS: TMP IV SCH ×3 (01:45→18:24)
[2018-11-08] MEDS: SULFAMETHOXAZOLE IV SCH ×3 (01:45→18:24)
[2018-11-08] MEDS: DEXTROSE IV SCH ×3 (01:45→18:24)
[2018-11-08] MEDS: Meropenem 2 GM in Sodium Chloride 0.9% 100 ML IV SCH ×3 (02:23→19:44)
[2018-11-08] MEDS: Morphine Sulfate 2 mg/mL 1mL Syr IVP PRN (03:53)
--- NOTE | 2018-11-08 03:59 | Infectious Disease Prog Note ---
Infectious Disease Subjective - Review of Systems Service Date: 11/07/18 Events since last encounter: BM biopsy performed. no fever. Feeling better. Subjective: weak Infectious Disease Objective - Results Result Diagrams: 11/07/18 05:00 11/07/18 05:00 Recent Labs: Laboratory Last Values WBC 0.3 Th/cmm (4.8-10.8) L* 11/07/18 05:00 RBC 4.18 Mil/cmm (4.30-5.70) L 11/07/18 05:00 Hgb 12.3 gm/dL (12-16) 11/07/18 05:00 Hct 36.9 % (41.0-60) L 11/07/18 05:00 MCV 88.2 fl (80-99) 11/07/18 05:00 MCH 29.5 pg (26.0-30.0) 11/07/18 05:00 MCHC Differential 33.4 pg (28.0-36.0) 11/07/18 05:00 RDW 11.8 % (11.5-20.0) 11/07/18 05:00 Plt Count 144 Th/cmm (150-400) L D 11/07/18 05:00 MPV 8.5 fl 11/07/18 05:00 Add Manual Diff YES 11/07/18 05:00 Band Neutrophils % 0 % (0-10) 11/07/18 05:00 Neutrophils (Manual) 3 % (40-80) L 11/07/18 05:00 Lymphocytes 82 % (20-50) H 11/07/18 05:00 Monocytes 15 % (2-10) H 11/07/18 05:00 Eosinophils 0 % (0-5) 11/07/18 05:00 Basophils 0 % (0-3) 11/07/18 05:00 Platelet Estimate SLIGHT DECREASED (NORMAL) 11/07/18 05:00 Plt Count 169 Th/cmm (150-750) 11/06/18 18:32 PT 14.1 SECONDS (9.5-11.5) H 11/06/18 18:32 INR 1.38 (0.5-1.4) 11/06/18 18:32 PTT (Actin FS) 51.0 SECONDS (26.0-38.0) H 11/06/18 18:32 Fibrinogen 734.0 mg/dL (200.0-400.0) H 11/06/18 18:32 D-Dimer 3890 ng/mL (100-400) H 11/06/18 18:32 Specimen Source Arterial 11/07/18 07:39 Sample Site Right Radial 11/07/18 07:39 pH 7.498 (7.35-7.45) H 11/07/18 07:39 pCO2 23.3 mmHg (35.0-45.0) L* 11/07/18 07:39 pO2 174.3 mmHg (80.0-100.0) H 11/07/18 07:39 HCO3 17.7 mEq/L (20.0-26.0) L 11/07/18 07:39 Base Excess -3.4 mEq/L (-3.0-3.0) L 11/07/18 07:39 O2 Saturation 99.3 % (92.0-100.0) 11/07/18 07:39 Shiv Test Positive 11/07/18 07:39 Vent Rate NA 11/07/18 07:39 Inspired O2 32 11/07/18 07:39 Tidal Volume NA 11/07/18 07:39 PEEP NA 11/07/18 07:39 Pressure (ins/psv/peep) NA 11/07/18 07:39 Critical Value JG 11/07/18 07:39 Sodium 126 mEq/L (136-145) L 11/07/18 05:00 Potassium 3.5 mEq/L (3.5-5.1) 11/07/18 05:00 Chloride 99 mEq/L (98-107) 11/07/18 05:00 Carbon Dioxide 17.7 mEq/L (21.0-31.0) L 11/07/18 05:00 Anion Gap 12.8 (7.0-16.0) 11/07/18 05:00 BUN 13 mg/dL (7-25) 11/07/18 05:00 Creatinine 0.7 mg/dL (0.7-1.3) 11/07/18 05:00 Est GFR ( Amer) > 60.0 ml/min (>90) 11/07/18 05:00 Est GFR (Non-Af Amer) > 60.0 ml/min 11/07/18 05:00 BUN/Creatinine Ratio 18.6 11/07/18 05:00 Glucose 277 mg/dL (70-105) H D 11/07/18 05:00 POC Glucose 173 MG/DL (70 - 105) H 11/07/18 23:02 Whole Bld Lactic Acid 1.35 mmol/L (0.60-1.99) 11/06/18 12:00 Uric Acid 1.6 mg/dL (4.4-7.6) L 11/07/18 05:00 Calcium 8.2 mg/dL (8.6-10.3) L 11/07/18 05:00 Total Bilirubin 0.5 mg/dL (0.3-1.0) 11/07/18 05:00 AST 20 U/L (13-39) 11/07/18 05:00 ALT 21 U/L (7-52) 11/07/18 05:00 Alkaline Phosphatase 26 U/L (34-104) L 11/07/18 05:00 Lactate Dehydrogenase 119 U/L (140-271) L 11/06/18 18:32 Creatine Kinase 233 U/L (30-223) H 11/06/18 18:32 CK-MB (CK-2) 4.6 ng/mL (0.6-6.3) 11/06/18 18:32 Troponin I 0.03 ng/mL (0.01-0.05) 11/06/18 09:40 Total Protein 5.2 gm/dL (6.0-8.3) L 11/07/18 05:00 Albumin 2.7 gm/dL (4.2-5.5) L 11/07/18 05:00 Globulin 2.5 gm/dL 11/07/18 05:00 Albumin/Globulin Ratio 1.1 (1.0-1.8) 11/07/18 05:00 TSH 1.14 uIU/ml (0.34-5.60) 11/06/18 09:40 Urine Source CLEAN C 11/06/18 10:00 Urine Color ORANGE 11/06/18 10:00 Urine Clarity HAZY (CLEAR) 11/06/18 10:00 Urine pH 6.0 (4.6 - 8.0) 11/06/18 10:00 Ur Specific [place] 1.025 (1.005-1.030) 11/06/18 10:00 Urine Protein >=300 mg/dL (NEGATIVE) 11/06/18 10:00 Urine Glucose (UA) NEGATIVE mg/dL (NEGATIVE) 11/06/18 10:00 Urine Ketones NEGATIVE mg/dL (NEGATIVE) 11/06/18 10:00 Urine Blood LARGE (NEGATIVE) H 11/06/18 10:00 Urine Nitrate POSITIVE (NEGATIVE) H 11/06/18 10:00 Urine Bilirubin NEGATIVE (NEGATIVE) 11/06/18 10:00 Urine Urobilinogen 1.0 E.U./dL (0.2 - 1.0) 11/06/18 10:00 Ur Leukocyte Esterase NEGATIVE (NEGATIVE) 11/06/18 10:00 Urine RBC 2-5 /hpf (0-5) H 11/06/18 10:00 Urine WBC 0-2 /hpf (0-5) 11/06/18 10:00 Ur Epithelial Cells OCCASIONAL /lpf (FEW) 11/06/18 10:00 Urine Bacteria MANY /hpf (NONE SEEN) H 11/06/18 10:00 Ur Random Sodium 32 mmol/L 11/07/18 10:00 Vancomycin Trough 10.5 ug/mL (5-10) H 11/07/18 05:00 Urine Opiates Screen NEGATIVE (NEGATIVE) 11/06/18 10:22 Urine Methadone Screen NEGATIVE (NEGATIVE) 11/06/18 10:22 Ur Barbiturates Screen NEGATIVE (NEGATIVE) 11/06/18 10:22 Ur Tricyclics Screen NEGATIVE (NEGATIVE) 11/06/18 10:22 Ur Phencyclidine Scrn NEGATIVE (NEGATIVE) 11/06/18 10:22 Amphetamines Screen NEGATIVE (NEGATIVE) 11/06/18 10:22 U Methamphetamines Scrn NEGATIVE (NEGATIVE) 11/06/18 10:22 U Benzodiazepines Scrn NEGATIVE (NEGATIVE) 11/06/18 10:22 U Cocaine Metab Screen POSITIVE (NEGATIVE) H 11/06/18 10:22 U Cannabinoids Screen POSITIVE (NEGATIVE) H 11/06/18 10:22 Hepatitis A IgM Ab Negative (Negative) 11/06/18 12:00 Hep Bs Antigen Negative (Negative) 11/06/18 12:00 Hep B Core IgM Ab Negative (Negative) 11/06/18 12:00 Hepatitis C Antibody <0.1 s/co ratio (0.0-0.9) 11/06/18 12:00 HIV 1&2 Antibody Screen NEGATIVE (NEG) 11/06/18 10:22 - Physical Exam Vitals and I&O: Vital Signs Temp 98.1 F 11/08/18 02:00 Pulse 113 11/08/18 02:00 Resp 26 11/08/18 02:00 BP 115/68 11/08/18 02:00 Pulse Ox 98 11/08/18 02:00 Intake & Output 11/07/18 11/07/18 11/08/18 06:59 18:59 06:59 Intake Total 4756.666 1070 2740 Output Total 1350 1600 Balance 3406.666 1070 1140 Weight (lbs) 61.405 kg 63.049 kg Intake: Intake, IV Amount 3956.666 1070 1270 D5-0.9%Ns 1,000 ml @ 125 1816.666 mls/hr IV .Q8H [facility] Rx#: [id number] Fluconazole 400mg/200mL 200 400 mg In 200 ml @ 100 mls/hr IV Q24HR [facility] Rx#: [id number] Levofloxacin 750mg/150mL 150 150 750 mg In 150 ml @ 100 mls/hr IV Q24HR [facility] Rx#: [id number] Meropenem 2 gm In Sodium 200 Chloride 0.9% 100 ml @ 100 mls/hr IV Q8HR [facility] Rx #:[id number] Meropenem 2 gm In Sodium 100 100 Chloride 0.9% 100 ml @ 100 mls/hr IV Q8HR@0300, 1100,1900 [facility] Rx#: [id number] Sulfamethoxazole/TMP 20 1040 520 520 ml In Dextrose 5% 500 ml @ 346.667 mls/hr IV Q8H [facility] Rx#:[id number] Vancomycin HCl 1 gm In 750 250 500 Sodium Chloride 0.9% 250 ml @ 166.667 mls/hr IV Q6H [facility] Rx#:[id number] Oral 800 400 Other 1070 Output: Urine 1350 1600 Other: # Bowel Movements 0 0 Weight Source Bedscale Bedscale Active Medications: Current Medications Acetaminophen (Tylenol) 650 mg PO Q4H PRN PRN Reason: Pain Or Fever above 101 Stop: 01/05/19 12:37 Last Admin: 06/15/19 16:30 Dose: 650 mg Al Hydrox/Mg Hydrox/Simethicone (Maalox) 30 ml PO Q6H PRN PRN Reason: Dyspepsia Stop: 01/05/19 12:37 Albuterol Sulfate (Albuterol 2.5mg/3ml Neb Ud) 2.5 mg HHN QIDRT [facility] Stop: 01/05/19 14:59 Last Admin: 11/07/18 19:18 Dose: 2.5 mg Alprazolam (Xanax) 0.25 mg PO Q8HR PRN; Protocol PRN Reason: Anxiety Stop: 01/05/19 20:19 Last Admin: 11/07/18 22:10 Dose: 0.25 mg Dextrose (D50w) 50 ml IVP PRN PRN PRN Reason: Blood Glucose less than 70 Stop: 01/06/19 14:23 Dextrose (Glutose 40%) 18.75 gm PO PRN PRN PRN Reason: Blood Glucose less than 70 Stop: 01/06/19 14:23 Filgrastim (Neupogen) 480 mcg SUBQ DAILY [facility] Stop: 01/05/19 18:44 Last Admin: 11/07/18 13:29 Dose: 480 mcg Glucagon (Glucagen) 1 mg IM PRN PRN PRN Reason: Blood Glucose less than 70 Stop: 01/06/19 14:23 Guaifenesin (Robitussin) 200 mg PO Q4HR PRN PRN Reason: Cough or Congestion Stop: 01/05/19 12:37 Dextrose/Sodium Chloride (D5-0.9%Ns) 1,000 mls @ 125 mls/hr IV .Q8H [facility] Stop: 01/05/19 12:44 Last Admin: 11/07/18 04:45 Dose: 125 mls/hr Fluconazole/Sodium Chloride (Diflucan) 400 mg in 200 mls @ 100 mls/hr IV Q24HR [facility] Stop: 01/05/19 13:59 Last Infusion: 11/07/18 16:34 Dose: Infused Vancomycin HCl 1 gm/ Sodium (Chloride) 250 mls @ 166.667 mls/hr IV Q6H [facility] Stop: 01/05/19 14:59 Last Admin: 11/08/18 02:14 Dose: 165 mls/hr Trimethoprim/Sulfamethoxazole (20 ml/ Dextrose) 520 mls @ 346.667 mls/hr IV Q8H [facility] Stop: 01/05/19 18:29 Last Admin: 11/08/18 01:45 Dose: 348 mls/hr Levofloxacin (Levaquin Pb) 750 mg in 150 mls @ 100 mls/hr IV Q24HR [facility] Stop: 11/12/18 20:29 Last Infusion: 11/07/18 21:25 Dose: Infused Meropenem 2 gm/ Sodium (Chloride) 100 mls @ 100 mls/hr IV Q8HR@0300,1100,1900 [facility] Stop: 01/05/19 20:59 Last Admin: 11/08/18 02:23 Dose: 100 mls/hr Ibuprofen (Motrin) 800 mg PO TID PRN PRN Reason: Pain (Moderate) Stop: 01/06/19 20:59 Insulin Human Lispro (Humalog Insulin Sliding Scale) 0 units SUBQ Q6HR [facility]; Protocol Stop: 01/06/19 17:59 Last Admin: 11/08/18 00:14 Dose: Not Given Ipratropium [place] (Atrovent Neb 0.5mg/2.5ml) 0.5 mg IH QIDRT [facility] Stop: 01/05/19 14:59 Last Admin: 11/07/18 19:18 Dose: 0.5 mg Methylprednisolone Sodium Succinate (Solu-Medrol) 80 mg IVP Q8HR [facility] Stop: 01/05/19 12:59 Last Admin: 11/07/18 20:50 Dose: 80 mg Miscellaneous (Vancomycin Iv Per Pharmacy) 1 ea MC PRN PRN PRN Reason: VANCOMYCIN IV PER RX Stop: 01/05/19 13:19 Morphine Sulfate (Morphine) 2 mg IVP Q4H PRN PRN Reason: Pain (Severe) Stop: 01/05/19 12:37 Last Admin: 11/08/18 03:53 Dose: 2 mg Ondansetron HCl (Zofran) 4 mg IV Q8H PRN PRN Reason: Nausea / Vomiting Stop: 01/05/19 12:37 Last Admin: 11/08/18 02:05 Dose: 4 mg Pantoprazole Sodium (Protonix) 40 mg PO QDAC [facility] Stop: 01/05/19 16:29 Last Admin: 11/07/18 06:46 Dose: 40 mg Tramadol HCl (Ultram) 50 mg PO Q6HR PRN PRN Reason: Pain (Severe) Stop: 01/05/19 20:17 Last Admin: 11/07/18 23:00 Dose: 50 mg Zolpidem Tartrate (Ambien) 10 mg PO HS PRN PRN Reason: Insomnia Stop: 01/05/19 12:37 General: no acute distress, cachectic HEENT: atraumatic, normocephalic, PERRLA Neck: supple, no thyromegaly Cardiovascular: S1S2, regular Lungs: clear to auscultation bilaterally, clear to percussion Abdomen: soft, bowel sounds, no tender, no distended, no mass, no obese Extremities: no cyanosis, no clubbing, no edema Neurological: awake, alert, oriented Skin: intact, other (pustules) Infectious Disease Assmt/Plan - Assessment Assessment: 1. Severe neutropenia. 2. Extensive pneumonia, both lung, inflammatory versus infectious. 3. Pustules. 4. Hyponatremia. 5. Sepsis. 6. Respiratory failure with hypoxemia. - Plan Plan: Continue the same treatment. Nutritional Asmnt/Malnutr-PDOC - Dietary Evaluation Malnutrition Findings (Please click <Entered> for more info): Nutritional Asmnt/Malnutrition Start: 11/07/18 10: 55 Text: Status: Complete Freq: Protocol: Document 11/07/18 10:55 DANAE (Rec: 11/07/18 11:13 DANAE HARDIN- [email or web address]) Nutritional Asmnt/Malnutrition Patient General Information Nutritional Screening High Risk Diagnosis Respiratory Failure, dehydration Pertinent Medical Hx/Surgical Hx None Subjective Information Per H&P, patient positive for cocaine and marijuana. Spoke with patient's sister, who states he has a sore throat and prefers to eat cold foods right now. She also states he eats "kid foods", and likes snack foods. Current Diet Order/ Nutrition Support Regular Patient / S.O Not Indicated Pertinent Medications maalox, solu-medrol, abx, zofran, protonix Pertinent Labs (11/07) Na 126 (improved), glucose 277, Ca 8.2, albumin 2 .7 Nutritional Hx/Data Height 1.78 m Height (Calculated Centimeters) 177.8 Current Weight (lbs) 61.235 kg Weight (Calculated Kilograms) 61.2 Weight (Calculated Grams) 69407.0 [place] Body Weight 166 % [place] Body Weight 81 Body Mass Index (BMI) 19.3 Recent Weight Change No Weight Status Approriate GI Symptoms GI Symptoms None Last BM 11/06 x 2 Difficult in: None Food Allergies No Cultural/Ethnic/Temple Belief none indicated Usual diet at home Regular Skin Integrity/Comment: Cuco 16, Intact Current %PO Negligible < 25% Estimated Nutritional Goals BEE in Kcals: Using Current wt Calories/Kcals/Kg 61.3kg CBW 30-35 kcal/kg Kcals Calculated ~0889-2660 kcal/day Protein: Using Current wt Protein g/k.2-1.5 gm/kg Protein Calculated ~75-90 gm/day Fluid: ml ~2285-6334 ml/day (1 ml/kcal) Nutritional Problem 1. Problem Problem Inadequate oral intake realted to Etiology possible poor appetite aeb Signs/Symptoms: PO <25% of meals, 81% IBW Intervention/Recommendation Comments 1. Continue regular diet as tolerated by patient. 2. If patient remains hyperglycemic (on Solu-medrol) consider modifying to 60 gm CCHO diet at that time. 3. Encourage oral intake of meals and snacks. 4. Start Ensure Enlive TID with meals Expected Outcomes/Goals Expected Outcomes/Goals PO intake to meet >75% of nutritional needs, weight stability or trend toward ideal body weight, skin intact , nutrition related labs to approach WNL. F/U MR 11/10-
[2018-11-08] MEDS: methylPREDNISolone SS 40 mg Vial IVP SCH ×3 (04:22→20:17)
[2018-11-08 05:15] LABS: HEMATOCRIT 34.8 % (41.0-60); HEMOGLOBIN 11.6 gm/dL (12-16); LYMPHOCYTE ABSOLUTE 0.3 Th/cmm (1.5-3.0); MEAN CELL VOLUME 87.7 fl (80-99); MEAN CORPUSCULAR HEMOGLOBIN 29.2 pg (26.0-30.0); MEAN CORPUSCULAR HGB CONC 33.3 pg (28.0-36.0); MONOCYTE ABSOLUTE 0.2 Th/cmm (0.3-1.0); PLATELET COUNT 165 Th/cmm (150-400); RED BLOOD COUNT 3.97 Mil/cmm (4.30-5.70); RED CELL DISTRIBUTION WIDTH 12.1 % (11.5-20.0)
[2018-11-08 05:24] LABS: INR 0.98 (0.5-1.4)
[2018-11-08 05:28] LABS: ALBUMIN 2.8 gm/dL (4.2-5.5); ALKALINE PHOSPHATASE 25 U/L (34-104); ANION GAP 11.4 (7.0-16.0); BILIRUBIN,TOTAL 0.4 mg/dL (0.3-1.0); BUN - UREA NITROGEN 14 mg/dL (7-25); CALCIUM SERUM 8.5 mg/dL (8.6-10.3); CARBON DIOXIDE 20.9 mEq/L (21.0-31.0); CHLORIDE 103 mEq/L (98-107); CREATININE - SERUM 0.7 mg/dL (0.7-1.3); GFR AFRICAN-AMERICAN > 60.0 ml/min (>90); GFR NON AFRICAN-AMERICAN > 60.0 ml/min; POTASSIUM SERUM 3.3 mEq/L (3.5-5.1); SGOT 122 U/L (13-39); SGPT/ALT 69 U/L (7-52); SODIUM SERUM 132 mEq/L (136-145); TOTAL PROTEIN,SERUM 5.5 gm/dL (6.0-8.3)
[2018-11-08 06:01] LABS: GLUCOSE 116 mg/dL (70-105)
[2018-11-08 06:33] LABS: WHITE BLOOD COUNT 0.5 Th/cmm (4.8-10.8)
[2018-11-08] MEDS: Pantoprazole 40 mg EC Tab PO SCH (06:37)
[2018-11-08] MEDS: Albuterol Nebulizer 2.5mg/3mL HHN SCH ×4 (07:08→19:06)
[2018-11-08] MEDS: Ipratropium Neb 0.5 mg/2.5 mL UD IH SCH ×4 (07:08→19:06)
--- NOTE | 2018-11-08 07:57 | Diagnostic Imaging Report ---
Portable chest x-ray HISTORY: Shortness of breath, pneumonia Compared with the prior exam of November 07, 2018, increasing infiltrate noted in the right lung. Somewhat were focal infiltrate seen in the right lower lobe. IMPRESSION: 1. Increased infiltrate within the right lung particularly the right lower lobe region since the prior exam of November 07, 2018.
--- NOTE | 2018-11-08 08:02 | Diagnostic Imaging Report ---
CT angiogram of the chest with intravenous contrast (CTA) HISTORY: Chest pain, pneumonia Total DLP equals 551 CTDI equals 62.0 Following administration of intravenous contrast, axial sections were obtained from a level above the clavicles down to level below the diaphragm. The exam is somewhat suboptimal due to suboptimal opacification of the pulmonary arteries. There is normal opacification of the main, right, and left pulmonary arteries. No intraluminal filling defects are seen. Specifically, no evidence of pulmonary embolism. There are persistent bilateral multifocal pulmonary infiltrates. More focal parenchymal density consistent with consolidation and/or atelectasis noted in the left and to lesser degree right lower lobe regions. Slight increased nonvascular density noted within the hilar regions. Lymphadenopathy cannot be excluded. No free pleural fluid is seen. IMPRESSION: 1. Somewhat suboptimal opacification of the pulmonary arteries. However, no definite evidence of pulmonary embolism 2. Persistent bilateral multifocal infiltrates with little change compared to November 06, 2018 3. Slight increase in nonvascular density about the hilar regions. A degree of lymphadenopathy cannot be excluded.
--- NOTE | 2018-11-08 08:04 | Diagnostic Imaging Report ---
CT scan abdomen and pelvis without intravenous contrast HISTORY: Abscess, colitis Total DLP equals 355 CTDI equals 7.8 Axial sections were obtained from the xiphoid process down to the pubic symphysis. Limited sections the lower chest demonstrate focal parenchymal density in the left lower lobe consistent with consolidation and/or atelectasis. Multifocal infiltrates noted bilaterally. Pleural thickening noted in the right lower hemithorax. The liver is enlarged. No focal lesions. The spleen appears normal. No focal amenities seen in the region pancreas. No focal renal lesions. The exam of the pelvis demonstrates preservation of normal fat planes. No abnormal soft tissue masses or abnormal fluid collections. Mildly dilated air-filled large bowel noted. In addition mildly dilated fluid-filled ascending colon is noted. No definite colonic wall thickening. However, colitis cannot be excluded. Clinical correlation is needed. IMPRESSION: 1. Hepatomegaly 2. Mildly dilated air-filled large bowel along with slightly dilated fluid-filled ascending colon. Colitis cannot be excluded. Clinical correlation is needed. 3. Abnormal pulmonary changes as noted above (see separate CT examination of the chest report).
[2018-11-08 08:05] LABS: A1C 5.5 % (4.8-5.6)
[2018-11-08 08:17] LABS: BAND NEUTROPHILE 0 % (0-10); BASOPHIL 0 % (0-3); EOSINOPHIL 0 % (0-5); LYMPHOCYTE 66 % (20-50); MONOCYTE 32 % (2-10); NEUTROPHILS 2 % (40-80)
[2018-11-08 08:18] LABS: PLATELET ESTIMATE ADEQUATE (NORMAL)
--- NOTE | 2018-11-08 11:16 | Diagnostic Imaging Report ---
Renal ultrasound HISTORY: Hematuria, pain The right kidney measures 9.4 x 5.8 x 4.4 cm. No focal lesions. No hydronephrosis. The left kidney measures 11.4 x 6.2 x 5.2 cm. 2 sonolucent foci noted within the midportion of the kidney. The largest measures 1.3 cm. Findings consistent with cysts. No hydronephrosis. Faint intraluminal echoes seen in the dependent region of the urinary bladder. Findings should be correlated with urinalysis. IMPRESSION: 1. Findings consistent with relatively small left renal cyst 2. Low-level intraluminal echoes within the urinary bladder. Findings should be correlated with urinalysis.
[2018-11-08 13:55] LABS: INF A SCREEN NEG FOR INF A; INF B SCREEN NEG FOR INF B
--- NOTE | 2018-11-08 13:57 | Internal Medicine Prog Note ---
Internal Medicine Subjective - Subjective Patient seen and examined:: with staff, chart reviewed Patient is:: awake, verbal, interactive, in bed Patient Complaints of:: congestion, cough, pain with urination, LBP, headache, chest pain, unable to sleep Per staff patient has:: no adverse event, poor appetite, tolerating meds Internal Medicine Objective - Results Result Diagrams: 11/08/18 04:50 11/08/18 04:50 Recent Labs: Laboratory Last Values WBC 0.5 Th/cmm (4.8-10.8) L* 11/08/18 04:50 RBC 3.97 Mil/cmm (4.30-5.70) L 11/08/18 04:50 Hgb 11.6 gm/dL (12-16) L 11/08/18 04:50 Hct 34.8 % (41.0-60) L 11/08/18 04:50 MCV 87.7 fl (80-99) 11/08/18 04:50 MCH 29.2 pg (26.0-30.0) 11/08/18 04:50 MCHC Differential 33.3 pg (28.0-36.0) 11/08/18 04:50 RDW 12.1 % (11.5-20.0) 11/08/18 04:50 Plt Count 165 Th/cmm (150-400) 11/08/18 04:50 MPV 7.6 fl 11/08/18 04:50 Add Manual Diff YES 11/08/18 04:50 Band Neutrophils % 0 % (0-10) 11/08/18 04:50 Neutrophils (Manual) 2 % (40-80) L 11/08/18 04:50 Lymphocytes 66 % (20-50) H 11/08/18 04:50 Monocytes 32 % (2-10) H 11/08/18 04:50 Eosinophils 0 % (0-5) 11/08/18 04:50 Basophils 0 % (0-3) 11/08/18 04:50 Platelet Estimate ADEQUATE (NORMAL) 11/08/18 04:50 Plt Count 169 Th/cmm (150-750) 11/06/18 18:32 PT 10.2 SECONDS (9.5-11.5) 11/08/18 04:50 INR 0.98 (0.5-1.4) 11/08/18 04:50 PTT (Actin FS) 49.0 SECONDS (26.0-38.0) H 11/08/18 04:50 Fibrinogen 500.0 mg/dL (200.0-400.0) H 11/08/18 04:50 D-Dimer 3890 ng/mL (100-400) H 11/06/18 18:32 Specimen Source Arterial 11/07/18 07:39 Sample Site Right Radial 11/07/18 07:39 pH 7.498 (7.35-7.45) H 11/07/18 07:39 pCO2 23.3 mmHg (35.0-45.0) L* 11/07/18 07:39 pO2 174.3 mmHg (80.0-100.0) H 11/07/18 07:39 HCO3 17.7 mEq/L (20.0-26.0) L 11/07/18 07:39 Base Excess -3.4 mEq/L (-3.0-3.0) L 11/07/18 07:39 O2 Saturation 99.3 % (92.0-100.0) 11/07/18 07:39 Shiv Test Positive 11/07/18 07:39 Vent Rate NA 11/07/18 07:39 Inspired O2 32 11/07/18 07:39 Tidal Volume NA 11/07/18 07:39 PEEP NA 11/07/18 07:39 Pressure (ins/psv/peep) NA 11/07/18 07:39 Critical Value JG 11/07/18 07:39 Sodium 132 mEq/L (136-145) L 11/08/18 04:50 Potassium 3.3 mEq/L (3.5-5.1) L 11/08/18 04:50 Chloride 103 mEq/L (98-107) 11/08/18 04:50 Carbon Dioxide 20.9 mEq/L (21.0-31.0) L 11/08/18 04:50 Anion Gap 11.4 (7.0-16.0) 11/08/18 04:50 BUN 14 mg/dL (7-25) 11/08/18 04:50 Creatinine 0.7 mg/dL (0.7-1.3) 11/08/18 04:50 Est GFR ( Amer) > 60.0 ml/min (>90) 11/08/18 04:50 Est GFR (Non-Af Amer) > 60.0 ml/min 11/08/18 04:50 BUN/Creatinine Ratio 20.0 11/08/18 04:50 Glucose 116 mg/dL (70-105) H D 11/08/18 04:50 POC Glucose 207 MG/DL (70 - 105) H 11/08/18 11:50 Whole Bld Lactic Acid 1.35 mmol/L (0.60-1.99) 11/06/18 12:00 Uric Acid 1.6 mg/dL (4.4-7.6) L 11/07/18 05:00 Calcium 8.5 mg/dL (8.6-10.3) L 11/08/18 04:50 Magnesium 2.0 mg/dL (1.9-2.7) 11/08/18 04:50 Total Bilirubin 0.4 mg/dL (0.3-1.0) 11/08/18 04:50 AST 122 U/L (13-39) H 11/08/18 04:50 ALT 69 U/L (7-52) H 11/08/18 04:50 Alkaline Phosphatase 25 U/L (34-104) L 11/08/18 04:50 Lactate Dehydrogenase 119 U/L (140-271) L 11/06/18 18:32 Creatine Kinase 233 U/L (30-223) H 11/06/18 18:32 CK-MB (CK-2) 4.6 ng/mL (0.6-6.3) 11/06/18 18:32 Troponin I 0.03 ng/mL (0.01-0.05) 11/06/18 09:40 Total Protein 5.5 gm/dL (6.0-8.3) L 11/08/18 04:50 Albumin 2.8 gm/dL (4.2-5.5) L 11/08/18 04:50 Globulin 2.7 gm/dL 11/08/18 04:50 Albumin/Globulin Ratio 1.0 (1.0-1.8) 11/08/18 04:50 TSH 1.14 uIU/ml (0.34-5.60) 11/06/18 09:40 Urine Source CLEAN C 11/06/18 10:00 Urine Color ORANGE 11/06/18 10:00 Urine Clarity HAZY (CLEAR) 11/06/18 10:00 Urine pH 6.0 (4.6 - 8.0) 11/06/18 10:00 Ur Specific [place] 1.025 (1.005-1.030) 11/06/18 10:00 Urine Protein >=300 mg/dL (NEGATIVE) 11/06/18 10:00 Urine Glucose (UA) NEGATIVE mg/dL (NEGATIVE) 11/06/18 10:00 Urine Ketones NEGATIVE mg/dL (NEGATIVE) 11/06/18 10:00 Urine Blood LARGE (NEGATIVE) H 11/06/18 10:00 Urine Nitrate POSITIVE (NEGATIVE) H 11/06/18 10:00 Urine Bilirubin NEGATIVE (NEGATIVE) 11/06/18 10:00 Urine Urobilinogen 1.0 E.U./dL (0.2 - 1.0) 11/06/18 10:00 Ur Leukocyte Esterase NEGATIVE (NEGATIVE) 11/06/18 10:00 Urine RBC 2-5 /hpf (0-5) H 11/06/18 10:00 Urine WBC 0-2 /hpf (0-5) 11/06/18 10:00 Ur Epithelial Cells OCCASIONAL /lpf (FEW) 11/06/18 10:00 Urine Bacteria MANY /hpf (NONE SEEN) H 11/06/18 10:00 Ur Random Sodium 32 mmol/L 11/07/18 10:00 Vancomycin Trough 18.3 ug/mL (5-10) H 11/08/18 08:00 Urine Opiates Screen NEGATIVE (NEGATIVE) 11/06/18 10:22 Urine Methadone Screen NEGATIVE (NEGATIVE) 11/06/18 10:22 Ur Barbiturates Screen NEGATIVE (NEGATIVE) 11/06/18 10:22 Ur Tricyclics Screen NEGATIVE (NEGATIVE) 11/06/18 10:22 Ur Phencyclidine Scrn NEGATIVE (NEGATIVE) 11/06/18 10:22 Amphetamines Screen NEGATIVE (NEGATIVE) 11/06/18 10:22 U Methamphetamines Scrn NEGATIVE (NEGATIVE) 11/06/18 10:22 U Benzodiazepines Scrn NEGATIVE (NEGATIVE) 11/06/18 10:22 U Cocaine Metab Screen POSITIVE (NEGATIVE) H 11/06/18 10:22 U Cannabinoids Screen POSITIVE (NEGATIVE) H 11/06/18 10:22 Hepatitis A IgM Ab Negative (Negative) 11/06/18 12:00 Hep Bs Antigen Negative (Negative) 11/06/18 12:00 Hep B Core IgM Ab Negative (Negative) 11/06/18 12:00 Hepatitis C Antibody <0.1 s/co ratio (0.0-0.9) 11/06/18 12:00 HIV 1&2 Antibody Screen NEGATIVE (NEG) 11/06/18 10:22 Influenza A (Rapid) NEG FOR INF A 11/08/18 13:00 Influenza B (Rapid) NEG FOR INF B 11/08/18 13:00 - Physical Exam Vitals and I&O: Vital Signs Temp 99.4 F 11/08/18 08:00 Pulse 114 11/08/18 10:57 Resp 23 11/08/18 10:57 BP 108/61 11/08/18 10:00 Pulse Ox 97 11/08/18 10:57 Intake & Output 11/07/18 11/08/18 11/08/18 18:59 06:59 18:59 Intake Total 1070 4710 Output Total 3500 Balance 1070 1210 Weight (lbs) 62.851 kg Intake: Intake, IV Amount 1070 2140 Fluconazole 400mg/200mL 200 400 mg In 200 ml @ 100 mls/hr IV Q24HR [facility] Rx#: [id number] Levofloxacin 750mg/150mL 150 750 mg In 150 ml @ 100 mls/hr IV Q24HR [facility] Rx#: [id number] Meropenem 2 gm In Sodium 100 200 Chloride 0.9% 100 ml @ 100 mls/hr IV Q8HR@0300, 1100,1900 [facility] Rx#: [id number] Sulfamethoxazole/TMP 20 520 1040 ml In Dextrose 5% 500 ml @ 346.667 mls/hr IV Q8H [facility] Rx#:[id number] Vancomycin HCl 1 gm In 250 750 Sodium Chloride 0.9% 250 ml @ 166.667 mls/hr IV Q6H [facility] Rx#:[id number] Oral 1500 Other 1070 Output: Urine 3150 Emesis 350 Other: # Bowel Movements 0 Weight Source Bedscale Active Medications: Current Medications Acetaminophen (Tylenol) 650 mg PO Q4H PRN PRN Reason: Pain Or Fever above 101 Stop: 01/05/19 12:37 Last Admin: 11/08/18 12:36 Dose: 650 mg Al Hydrox/Mg Hydrox/Simethicone (Maalox) 30 ml PO Q6H PRN PRN Reason: Dyspepsia Stop: 01/05/19 12:37 Albuterol Sulfate (Albuterol 2.5mg/3ml Neb Ud) 2.5 mg HHN QIDRT [facility] Stop: 01/05/19 14:59 Last Admin: 11/08/18 10:57 Dose: 2.5 mg Alprazolam (Xanax) 0.25 mg PO Q8HR PRN; Protocol PRN Reason: Anxiety Stop: 01/05/19 20:19 Last Admin: 11/07/18 22:10 Dose: 0.25 mg Dextrose (D50w) 50 ml IVP PRN PRN PRN Reason: Blood Glucose less than 70 Stop: 01/06/19 14:23 Dextrose (Glutose 40%) 18.75 gm PO PRN PRN PRN Reason: Blood Glucose less than 70 Stop: 01/06/19 14:23 Filgrastim (Neupogen) 480 mcg SUBQ DAILY [facility] Stop: 01/05/19 18:44 Last Admin: 11/08/18 09:21 Dose: 480 mcg Glucagon (Glucagen) 1 mg IM PRN PRN PRN Reason: Blood Glucose less than 70 Stop: 01/06/19 14:23 Guaifenesin (Robitussin) 200 mg PO Q4HR PRN PRN Reason: Cough or Congestion Stop: 01/05/19 12:37 Fluconazole/Sodium Chloride (Diflucan) 400 mg in 200 mls @ 100 mls/hr IV Q24HR [facility] Stop: 01/05/19 13:59 Last Infusion: 11/07/18 16:34 Dose: Infused Trimethoprim/Sulfamethoxazole (20 ml/ Dextrose) 520 mls @ 346.667 mls/hr IV Q8H [facility] Stop: 01/05/19 18:29 Last Admin: 11/08/18 11:00 Dose: 348 mls/hr Levofloxacin (Levaquin Pb) 750 mg in 150 mls @ 100 mls/hr IV Q24HR [facility] Stop: 11/12/18 20:29 Last Infusion: 11/07/18 21:25 Dose: Infused Meropenem 2 gm/ Sodium (Chloride) 100 mls @ 100 mls/hr IV Q8HR@0300,1100,1900 [facility] Stop: 01/05/19 20:59 Last Admin: 11/08/18 10:59 Dose: 100 mls/hr Vancomycin HCl 1 gm/ Sodium (Chloride) 250 mls @ 165 mls/hr IV Q8HR@0100,0900, 1700 [facility] Stop: 01/07/19 09:17 Last Admin: 11/08/18 09:21 Dose: 165 mls/hr Dextrose/Sodium Chloride (D5-0.9%Ns) 1,000 mls @ 100 mls/hr IV .Q10H [facility] Stop: 01/07/19 13:59 Ibuprofen (Motrin) 800 mg PO TID PRN PRN Reason: Pain (Moderate) Stop: 01/06/19 20:59 Insulin Human Lispro (Humalog Insulin Sliding Scale) 0 units SUBQ Q6HR [facility]; Protocol Stop: 01/06/19 17:59 Last Admin: 11/08/18 12:27 Dose: Not Given Ipratropium [place] (Atrovent Neb 0.5mg/2.5ml) 0.5 mg IH QIDRT [facility] Stop: 01/05/19 14:59 Last Admin: 11/08/18 10:57 Dose: 0.5 mg Lactobacillus Rhamnosus (Culturelle 15b) 1 each PO BID [facility] Stop: 01/07/19 16:59 Methylprednisolone Sodium Succinate (Solu-Medrol) 40 mg IVP Q8HR [facility] Stop: 01/07/19 20:59 Miscellaneous (Vancomycin Iv Per Pharmacy) 1 ea MC PRN PRN PRN Reason: VANCOMYCIN IV PER RX Stop: 01/05/19 13:19 Morphine Sulfate (Morphine) 2 mg IVP Q4H PRN PRN Reason: Pain (Severe) Stop: 01/05/19 12:37 Last Admin: 11/08/18 03:53 Dose: 2 mg Ondansetron HCl (Zofran) 4 mg IV Q8H PRN PRN Reason: Nausea / Vomiting Stop: 01/05/19 12:37 Last Admin: 11/08/18 02:05 Dose: 4 mg Pantoprazole Sodium (Protonix) 40 mg PO QDAC [facility] Stop: 01/05/19 16:29 Last Admin: 11/08/18 06:37 Dose: 40 mg Tramadol HCl (Ultram) 50 mg PO Q6HR PRN PRN Reason: Pain (Severe) Stop: 01/05/19 20:17 Last Admin: 11/07/18 23:00 Dose: 50 mg Zolpidem Tartrate (Ambien) 10 mg PO HS PRN PRN Reason: Insomnia Stop: 01/05/19 12:37 General: alert HEENT: NC/AT, PERRLA, EOMI Neck: Supple Lungs: rales, ronchi Cardiovascular: RRR, Normal S1, Normal S2, tachy Abdomen: soft, tender, positive bowel sound Extremities: excoriation Neurological: no change Internal Medicine Assmt/Plan - Assessment Assessment: ASSESSMENT AND PLAN: 1. Sepsis, atypical pneumonia, generalized rash. 2. Substance abuse, hyponatremia, tachycardia. pulm infiltrates tachycardia lbp [place] - Plan Plan: The patient had a CT chest, which showed ill-defined multilobar infiltrates throughout the lung could be inflammatory in nature. We will empirically start the patient on broad-spectrum antibiotic, vancomycin, Zosyn, as well as Diflucan. We will send for HIV as well as hepatitis panel. We will refer the patient to Pulmonary and Infectious Disease as well as Renal. Continue on aggressive IV hydration. Case was discussed with the patient and mother as well as his sisters and nurse and sister's fiance. The patient prognosis is guarded. The patient to remain in ICU. We will continue monitoring the patient closely. The patient is a full code. dw family members at bedside and w dr pollack Nutritional Asmnt/Malnutr-PDOC - Dietary Evaluation Malnutrition Findings (Please click <Entered> for more info): Nutritional Asmnt/Malnutrition Start: 11/07/18 10: 55 Text: Status: Complete Freq: Protocol: Document 11/07/18 10:55 DANAE (Rec: 11/07/18 11:13 DANAE HARDIN- [id number]) Nutritional Asmnt/Malnutrition Patient General Information Nutritional Screening High Risk Diagnosis Respiratory Failure, dehydration Pertinent Medical Hx/Surgical Hx None Subjective Information Per H&P, patient positive for cocaine and marijuana. Spoke with patient's sister, who states he has a sore throat and prefers to eat cold foods right now. She also states he eats "kid foods", and likes snack foods. Current Diet Order/ Nutrition Support Regular Patient / S.O Not Indicated Pertinent Medications maalox, solu-medrol, abx, zofran, protonix Pertinent Labs (11/07) Na 126 (improved), glucose 277, Ca 8.2, albumin 2 .7 Nutritional Hx/Data Height 1.78 m Height (Calculated Centimeters) 177.8 Current Weight (lbs) 61.235 kg Weight (Calculated Kilograms) 61.2 Weight (Calculated Grams) 82306.0 [place] Body Weight 166 % [place] Body Weight 81 Body Mass Index (BMI) 19.3 Recent Weight Change No Weight Status Approriate GI Symptoms GI Symptoms None Last BM 11/06 x 2 Difficult in: None Food Allergies No Cultural/Ethnic/Moravian Belief none indicated Usual diet at home Regular Skin Integrity/Comment: Cuco 16, Intact Current %PO Negligible < 25% Estimated Nutritional Goals BEE in Kcals: Using Current wt Calories/Kcals/Kg 61.3kg CBW 30-35 kcal/kg Kcals Calculated ~8164-1323 kcal/day Protein: Using Current wt Protein g/k.2-1.5 gm/kg Protein Calculated ~75-90 gm/day Fluid: ml ~3427-1621 ml/day (1 ml/kcal) Nutritional Problem 1. Problem Problem Inadequate oral intake realted to Etiology possible poor appetite aeb Signs/Symptoms: PO <25% of meals, 81% IBW Intervention/Recommendation Comments 1. Continue regular diet as tolerated by patient. 2. If patient remains hyperglycemic (on Solu-medrol) consider modifying to 60 gm CCHO diet at that time. 3. Encourage oral intake of meals and snacks. 4. Start Ensure Enlive TID with meals Expected Outcomes/Goals Expected Outcomes/Goals PO intake to meet >75% of nutritional needs, weight stability or trend toward ideal body weight, skin intact , nutrition related labs to approach WNL. F/U MR 11/10-
[2018-11-08] MEDS ORDERED: Potassium Chloride 20 mEq ER Tab PO ONE (14:00)
[2018-11-08 14:24] LABS: URINE SOURCE CLEAN C
[2018-11-08] MEDS: Fluconazole 400mg/200mL 400 MG/200 ML BAG IV SCH (14:29)
[2018-11-08] MEDS: D5-0.9%NS 1,000 ML IV SCH (14:30)
[2018-11-08 14:37] LABS: URINE BILIRUBIN NEGATIVE (NEGATIVE); URINE BLOOD SMALL (NEGATIVE); URINE GLUCOSE (UA) >=1000 mg/dL (NEGATIVE); URINE KETONE NEGATIVE (NEGATIVE); URINE LEUKOCYTE ESTERASE NEGATIVE (NEGATIVE); URINE MICROSCOPIC INDICATED? YES; URINE NITRATE NEGATIVE (NEGATIVE); URINE PH 6.5 (4.6 - 8.0); URINE PROTEIN TRACE mg/dL (NEGATIVE); URINE UROBILINOGEN 0.2 E.U./dL (0.2 - 1.0)
[2018-11-08 14:38] LABS: URINE CLARITY CLEAR (CLEAR); URINE COLOR YELLOW
[2018-11-08 14:48] LABS: URINE AMORPHOUS SEDIMENT FEW URATES (NONE SEEN); URINE BACTERIA NONE SEEN /hpf (NONE SEEN); URINE EPITHELIAL CELLS NONE SEEN /lpf (FEW); URINE RBC 0-2 /hpf (0-5); URINE WBC 0-2 /hpf (0-5)
--- NOTE | 2018-11-08 15:40 | General Progress Note ---
Subjective - Review of Systems Service Date: 11/08/18 Subjective: started eating, weak Objective - Results Result Diagrams: 11/08/18 04:50 11/08/18 04:50 Recent Labs: Laboratory Last Values WBC 0.5 Th/cmm (4.8-10.8) L* 11/08/18 04:50 RBC 3.97 Mil/cmm (4.30-5.70) L 11/08/18 04:50 Hgb 11.6 gm/dL (12-16) L 11/08/18 04:50 Hct 34.8 % (41.0-60) L 11/08/18 04:50 MCV 87.7 fl (80-99) 11/08/18 04:50 MCH 29.2 pg (26.0-30.0) 11/08/18 04:50 MCHC Differential 33.3 pg (28.0-36.0) 11/08/18 04:50 RDW 12.1 % (11.5-20.0) 11/08/18 04:50 Plt Count 165 Th/cmm (150-400) 11/08/18 04:50 MPV 7.6 fl 11/08/18 04:50 Add Manual Diff YES 11/08/18 04:50 Band Neutrophils % 0 % (0-10) 11/08/18 04:50 Neutrophils (Manual) 2 % (40-80) L 11/08/18 04:50 Lymphocytes 66 % (20-50) H 11/08/18 04:50 Monocytes 32 % (2-10) H 11/08/18 04:50 Eosinophils 0 % (0-5) 11/08/18 04:50 Basophils 0 % (0-3) 11/08/18 04:50 Platelet Estimate ADEQUATE (NORMAL) 11/08/18 04:50 Plt Count 169 Th/cmm (150-750) 11/06/18 18:32 PT 10.2 SECONDS (9.5-11.5) 11/08/18 04:50 INR 0.98 (0.5-1.4) 11/08/18 04:50 PTT (Actin FS) 49.0 SECONDS (26.0-38.0) H 11/08/18 04:50 Fibrinogen 500.0 mg/dL (200.0-400.0) H 11/08/18 04:50 D-Dimer 3890 ng/mL (100-400) H 11/06/18 18:32 Specimen Source Arterial 11/07/18 07:39 Sample Site Right Radial 11/07/18 07:39 pH 7.498 (7.35-7.45) H 11/07/18 07:39 pCO2 23.3 mmHg (35.0-45.0) L* 11/07/18 07:39 pO2 174.3 mmHg (80.0-100.0) H 11/07/18 07:39 HCO3 17.7 mEq/L (20.0-26.0) L 11/07/18 07:39 Base Excess -3.4 mEq/L (-3.0-3.0) L 11/07/18 07:39 O2 Saturation 99.3 % (92.0-100.0) 11/07/18 07:39 Shiv Test Positive 11/07/18 07:39 Vent Rate NA 11/07/18 07:39 Inspired O2 32 11/07/18 07:39 Tidal Volume NA 11/07/18 07:39 PEEP NA 11/07/18 07:39 Pressure (ins/psv/peep) NA 11/07/18 07:39 Critical Value JG 11/07/18 07:39 Sodium 132 mEq/L (136-145) L 11/08/18 04:50 Potassium 3.3 mEq/L (3.5-5.1) L 11/08/18 04:50 Chloride 103 mEq/L (98-107) 11/08/18 04:50 Carbon Dioxide 20.9 mEq/L (21.0-31.0) L 11/08/18 04:50 Anion Gap 11.4 (7.0-16.0) 11/08/18 04:50 BUN 14 mg/dL (7-25) 11/08/18 04:50 Creatinine 0.7 mg/dL (0.7-1.3) 11/08/18 04:50 Est GFR ( Amer) > 60.0 ml/min (>90) 11/08/18 04:50 Est GFR (Non-Af Amer) > 60.0 ml/min 11/08/18 04:50 BUN/Creatinine Ratio 20.0 11/08/18 04:50 Glucose 116 mg/dL (70-105) H D 11/08/18 04:50 POC Glucose 207 MG/DL (70 - 105) H 11/08/18 11:50 Whole Bld Lactic Acid 1.35 mmol/L (0.60-1.99) 11/06/18 12:00 Uric Acid 1.6 mg/dL (4.4-7.6) L 11/07/18 05:00 Calcium 8.5 mg/dL (8.6-10.3) L 11/08/18 04:50 Magnesium 2.0 mg/dL (1.9-2.7) 11/08/18 04:50 Total Bilirubin 0.4 mg/dL (0.3-1.0) 11/08/18 04:50 AST 122 U/L (13-39) H 11/08/18 04:50 ALT 69 U/L (7-52) H 11/08/18 04:50 Alkaline Phosphatase 25 U/L (34-104) L 11/08/18 04:50 Lactate Dehydrogenase 119 U/L (140-271) L 11/06/18 18:32 Creatine Kinase 233 U/L (30-223) H 11/06/18 18:32 CK-MB (CK-2) 4.6 ng/mL (0.6-6.3) 11/06/18 18:32 Troponin I 0.03 ng/mL (0.01-0.05) 11/06/18 09:40 Total Protein 5.5 gm/dL (6.0-8.3) L 11/08/18 04:50 Albumin 2.8 gm/dL (4.2-5.5) L 11/08/18 04:50 Globulin 2.7 gm/dL 11/08/18 04:50 Albumin/Globulin Ratio 1.0 (1.0-1.8) 11/08/18 04:50 TSH 1.14 uIU/ml (0.34-5.60) 11/06/18 09:40 Urine Source CLEAN C 11/08/18 14:22 Urine Color YELLOW 11/08/18 14:22 Urine Clarity CLEAR (CLEAR) 11/08/18 14:22 Urine pH 6.5 (4.6 - 8.0) 11/08/18 14:22 Ur Specific [place] 1.020 (1.005-1.030) 11/08/18 14:22 Urine Protein TRACE mg/dL (NEGATIVE) 11/08/18 14:22 Urine Glucose (UA) >=1000 mg/dL (NEGATIVE) H 11/08/18 14:22 Urine Ketones NEGATIVE mg/dL (NEGATIVE) 11/08/18 14:22 Urine Blood SMALL (NEGATIVE) H 11/08/18 14:22 Urine Nitrate NEGATIVE (NEGATIVE) 11/08/18 14:22 Urine Bilirubin NEGATIVE (NEGATIVE) 11/08/18 14:22 Urine Urobilinogen 0.2 E.U./dL (0.2 - 1.0) 11/08/18 14:22 Ur Leukocyte Esterase NEGATIVE (NEGATIVE) 11/08/18 14:22 Urine RBC 0-2 /hpf (0-5) H 11/08/18 14:22 Urine WBC 0-2 /hpf (0-5) 11/08/18 14:22 Ur Epithelial Cells NONE SEEN /lpf (FEW) 11/08/18 14:22 Amorphous Sediment FEW URATES (NONE SEEN) 11/08/18 14:22 Urine Bacteria NONE SEEN /hpf (NONE SEEN) 11/08/18 14:22 Ur Random Sodium 32 mmol/L 11/07/18 10:00 Vancomycin Trough 18.3 ug/mL (5-10) H 11/08/18 08:00 Urine Opiates Screen NEGATIVE (NEGATIVE) 11/06/18 10:22 Urine Methadone Screen NEGATIVE (NEGATIVE) 11/06/18 10:22 Ur Barbiturates Screen NEGATIVE (NEGATIVE) 11/06/18 10:22 Ur Tricyclics Screen NEGATIVE (NEGATIVE) 11/06/18 10:22 Ur Phencyclidine Scrn NEGATIVE (NEGATIVE) 11/06/18 10:22 Amphetamines Screen NEGATIVE (NEGATIVE) 11/06/18 10:22 U Methamphetamines Scrn NEGATIVE (NEGATIVE) 11/06/18 10:22 U Benzodiazepines Scrn NEGATIVE (NEGATIVE) 11/06/18 10:22 U Cocaine Metab Screen POSITIVE (NEGATIVE) H 11/06/18 10:22 U Cannabinoids Screen POSITIVE (NEGATIVE) H 11/06/18 10:22 Hepatitis A IgM Ab Negative (Negative) 11/06/18 12:00 Hep Bs Antigen Negative (Negative) 11/06/18 12:00 Hep B Core IgM Ab Negative (Negative) 11/06/18 12:00 Hepatitis C Antibody <0.1 s/co ratio (0.0-0.9) 11/06/18 12:00 HIV 1&2 Antibody Screen NEGATIVE (NEG) 11/06/18 10:22 Influenza A (Rapid) NEG FOR INF A 11/08/18 13:00 Influenza B (Rapid) NEG FOR INF B 11/08/18 13:00 - Physical Exam Vitals and I&O: Vital Signs Temp 99.4 F 11/08/18 08:00 Pulse 110 11/08/18 15:18 Resp 24 11/08/18 15:18 BP 108/61 11/08/18 10:00 Pulse Ox 98 11/08/18 15:18 Intake & Output 11/07/18 11/08/18 11/08/18 18:59 06:59 18:59 Intake Total 1070 4710 Output Total 3500 Balance 1070 1210 Weight (lbs) 62.851 kg Intake: Intake, IV Amount 1070 2140 Fluconazole 400mg/200mL 200 400 mg In 200 ml @ 100 mls/hr IV Q24HR [facility] Rx#: [id number] Levofloxacin 750mg/150mL 150 750 mg In 150 ml @ 100 mls/hr IV Q24HR [facility] Rx#: [id number] Meropenem 2 gm In Sodium 100 200 Chloride 0.9% 100 ml @ 100 mls/hr IV Q8HR@0300, 1100,1900 [facility] Rx#: [id number] Sulfamethoxazole/TMP 20 520 1040 ml In Dextrose 5% 500 ml @ 346.667 mls/hr IV Q8H [facility] Rx#:[id number] Vancomycin HCl 1 gm In 250 750 Sodium Chloride 0.9% 250 ml @ 166.667 mls/hr IV Q6H [facility] Rx#:[id number] Oral 1500 Other 1070 Output: Urine 3150 Emesis 350 Other: # Bowel Movements 0 Weight Source Bedscale Active Medications: Current Medications Acetaminophen (Tylenol) 650 mg PO Q4H PRN PRN Reason: Pain Or Fever above 101 Stop: 01/05/19 12:37 Last Admin: 11/08/18 12:36 Dose: 650 mg Al Hydrox/Mg Hydrox/Simethicone (Maalox) 30 ml PO Q6H PRN PRN Reason: Dyspepsia Stop: 01/05/19 12:37 Albuterol Sulfate (Albuterol 2.5mg/3ml Neb Ud) 2.5 mg HHN QIDRT [facility] Stop: 01/05/19 14:59 Last Admin: 11/08/18 15:16 Dose: 2.5 mg Alprazolam (Xanax) 0.25 mg PO Q8HR PRN; Protocol PRN Reason: Anxiety Stop: 01/05/19 20:19 Last Admin: 11/07/18 22:10 Dose: 0.25 mg Dextrose (D50w) 50 ml IVP PRN PRN PRN Reason: Blood Glucose less than 70 Stop: 01/06/19 14:23 Dextrose (Glutose 40%) 18.75 gm PO PRN PRN PRN Reason: Blood Glucose less than 70 Stop: 01/06/19 14:23 Filgrastim (Neupogen) 480 mcg SUBQ DAILY [facility] Stop: 01/05/19 18:44 Last Admin: 11/08/18 09:21 Dose: 480 mcg Glucagon (Glucagen) 1 mg IM PRN PRN PRN Reason: Blood Glucose less than 70 Stop: 01/06/19 14:23 Guaifenesin (Robitussin) 200 mg PO Q4HR PRN PRN Reason: Cough or Congestion Stop: 01/05/19 12:37 Fluconazole/Sodium Chloride (Diflucan) 400 mg in 200 mls @ 100 mls/hr IV Q24HR [facility] Stop: 01/05/19 13:59 Last Admin: 11/08/18 14:29 Dose: 100 mls/hr Trimethoprim/Sulfamethoxazole (20 ml/ Dextrose) 520 mls @ 346.667 mls/hr IV Q8H [facility] Stop: 01/05/19 18:29 Last Admin: 11/08/18 11:00 Dose: 348 mls/hr Levofloxacin (Levaquin Pb) 750 mg in 150 mls @ 100 mls/hr IV Q24HR [facility] Stop: 11/12/18 20:29 Last Infusion: 11/07/18 21:25 Dose: Infused Meropenem 2 gm/ Sodium (Chloride) 100 mls @ 100 mls/hr IV Q8HR@0300,1100,1900 [facility] Stop: 01/05/19 20:59 Last Admin: 11/08/18 10:59 Dose: 100 mls/hr Vancomycin HCl 1 gm/ Sodium (Chloride) 250 mls @ 165 mls/hr IV Q8HR@0100,0900, 1700 [facility] Stop: 01/07/19 09:17 Last Admin: 11/08/18 09:21 Dose: 165 mls/hr Dextrose/Sodium Chloride (D5-0.9%Ns) 1,000 mls @ 100 mls/hr IV .Q10H [facility] Stop: 01/07/19 13:59 Last Admin: 11/08/18 14:30 Dose: 100 mls/hr Ibuprofen (Motrin) 800 mg PO TID PRN PRN Reason: Pain (Moderate) Stop: 01/06/19 20:59 Insulin Human Lispro (Humalog Insulin Sliding Scale) 0 units SUBQ Q6HR [facility]; Protocol Stop: 01/06/19 17:59 Last Admin: 11/08/18 12:27 Dose: Not Given Ipratropium Nocatee (Atrovent Neb 0.5mg/2.5ml) 0.5 mg IH QIDRT [facility] Stop: 01/05/19 14:59 Last Admin: 11/08/18 15:16 Dose: 0.5 mg Lactobacillus Rhamnosus (Culturelle 15b) 1 each PO BID [facility] Stop: 01/07/19 16:59 Methylprednisolone Sodium Succinate (Solu-Medrol) 40 mg IVP Q8HR [facility] Stop: 01/07/19 20:59 Miscellaneous (Vancomycin Iv Per Pharmacy) 1 ea MC PRN PRN PRN Reason: VANCOMYCIN IV PER RX Stop: 01/05/19 13:19 Morphine Sulfate (Morphine) 2 mg IVP Q4H PRN PRN Reason: Pain (Severe) Stop: 01/05/19 12:37 Last Admin: 11/08/18 03:53 Dose: 2 mg Ondansetron HCl (Zofran) 4 mg IV Q8H PRN PRN Reason: Nausea / Vomiting Stop: 01/05/19 12:37 Last Admin: 11/08/18 02:05 Dose: 4 mg Pantoprazole Sodium (Protonix) 40 mg PO QDAC [facility] Stop: 01/05/19 16:29 Last Admin: 11/08/18 06:37 Dose: 40 mg Tramadol HCl (Ultram) 50 mg PO Q6HR PRN PRN Reason: Pain (Severe) Stop: 01/05/19 20:17 Last Admin: 11/07/18 23:00 Dose: 50 mg Zolpidem Tartrate (Ambien) 10 mg PO HS PRN PRN Reason: Insomnia Stop: 01/05/19 12:37 General: Alert, No acute distress HEENT: Atraumatic, Mucous membr. 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 Severe dehydration Severe Sepsis 2/2 UTI, ?CAP Resp Alkalosis - Plan Plan: Lab - Result Diagrams 11/07/18 05:00 11/07/18 05:00 Current Medications Acetaminophen (Tylenol) 650 mg PO Q4H PRN PRN Reason: Pain Or Fever above 101 Stop: 01/05/19 12:37 Last Admin: 11/06/18 21:46 Dose: 650 mg Al Hydrox/Mg Hydrox/Simethicone (Maalox) 30 ml PO Q6H PRN PRN Reason: Dyspepsia Stop: 01/05/19 12:37 Albuterol Sulfate (Albuterol 2.5mg/3ml Neb Ud) 2.5 mg HHN QIDRT [facility] Stop: 01/05/19 14:59 Last Admin: 11/07/18 10:09 Dose: 2.5 mg Alprazolam (Xanax) 0.25 mg PO Q8HR PRN; Protocol PRN Reason: Anxiety Stop: 01/05/19 20:19 Last Admin: 11/06/18 21:47 Dose: 0.25 mg Filgrastim (Neupogen) 480 mcg SUBQ DAILY [facility] Stop: 01/05/19 18:44 Last Admin: 11/07/18 13:29 Dose: 480 mcg Guaifenesin (Robitussin) 200 mg PO Q4HR PRN PRN Reason: Cough or Congestion Stop: 01/05/19 12:37 Heparin Sodium (Porcine) (Heparin) 5,000 units SUBQ Q12HR [facility] Stop: 01/05/19 20:59 Last Admin: 11/07/18 10:16 Dose: 5,000 units Dextrose/Sodium Chloride (D5-0.9%Ns) 1,000 mls @ 125 mls/hr IV .Q8H [facility] Stop: 01/05/19 12:44 Last Admin: 11/07/18 04:45 Dose: 125 mls/hr Fluconazole/Sodium Chloride (Diflucan) 400 mg in 200 mls @ 100 mls/hr IV Q24HR [facility] Stop: 01/05/19 13:59 Last Infusion: 11/06/18 16:15 Dose: Infused Vancomycin HCl 1 gm/ Sodium (Chloride) 250 mls @ 166.667 mls/hr IV Q6H [facility] Stop: 01/05/19 14:59 Last Admin: 11/07/18 08:50 Dose: 165 mls/hr Trimethoprim/Sulfamethoxazole (20 ml/ Dextrose) 520 mls @ 346.667 mls/hr IV Q8H [facility] Stop: 01/05/19 18:29 Last Admin: 11/07/18 10:15 Dose: 346 mls/hr Levofloxacin (Levaquin Pb) 750 mg in 150 mls @ 100 mls/hr IV Q24HR [facility] Stop: 11/12/18 20:29 Last Infusion: 11/06/18 21:25 Dose: Infused Meropenem 2 gm/ Sodium (Chloride) 100 mls @ 100 mls/hr IV Q8HR@0300,1100,1900 [facility] Stop: 01/05/19 20:59 Last Admin: 11/07/18 13:27 Dose: 100 mls/hr Ipratropium Nocatee (Atrovent Neb 0.5mg/2.5ml) 0.5 mg IH QIDRT [facility] Stop: 01/05/19 14:59 Last Admin: 11/07/18 10:09 Dose: 0.5 mg Methylprednisolone Sodium Succinate (Solu-Medrol) 80 mg IVP Q8HR [facility] Stop: 01/05/19 12:59 Last Admin: 11/07/18 13:27 Dose: 80 mg Miscellaneous (Vancomycin Iv Per Pharmacy) 1 ea MC PRN PRN PRN Reason: VANCOMYCIN IV PER RX Stop: 01/05/19 13:19 Morphine Sulfate (Morphine) 2 mg IVP Q4H PRN PRN Reason: Pain (Severe) Stop: 01/05/19 12:37 Last Admin: 11/07/18 04:45 Dose: 2 mg Ondansetron HCl (Zofran) 4 mg IV Q8H PRN PRN Reason: Nausea / Vomiting Stop: 01/05/19 12:37 Pantoprazole Sodium (Protonix) 40 mg PO QDAC [facility] Stop: 01/05/19 16:29 Last Admin: 11/07/18 06:46 Dose: 40 mg Tramadol HCl (Ultram) 50 mg PO Q6HR PRN PRN Reason: Pain (Moderate) Stop: 01/05/19 20:17 Last Admin: 11/07/18 10:15 Dose: 50 mg Zolpidem Tartrate (Ambien) 10 mg PO HS PRN PRN Reason: Insomnia Stop: 01/05/19 12:37 Lab - Result Diagrams 11/08/18 04:50 11/08/18 04:50 Na up to 132 C02 was 17.7 but pC02 @ 22, pH 7.49 suggestive of uncompensated resp alkalosis f/u electrolytes, cbc continue IVF discussed w/ family @ bedside Nutritional Asmnt/Malnutr-PDOC - Dietary Evaluation Malnutrition Findings (Please click <Entered> for more info): Nutritional Asmnt/Malnutrition Start: 11/07/18 10: 55 Text: Status: Complete Freq: Protocol: Document 11/07/18 10:55 DANAE (Rec: 11/07/18 11:13 DANAE HARDIN- [id number]) Nutritional Asmnt/Malnutrition Patient General Information Nutritional Screening High Risk Diagnosis Respiratory Failure, dehydration Pertinent Medical Hx/Surgical Hx None Subjective Information Per H&P, patient positive for cocaine and marijuana. Spoke with patient's sister, who states he has a sore throat and prefers to eat cold foods right now. She also states he eats "kid foods", and likes snack foods. Current Diet Order/ Nutrition Support Regular Patient / S.O Not Indicated Pertinent Medications maalox, solu-medrol, abx, zofran, protonix Pertinent Labs (11/07) Na 126 (improved), glucose 277, Ca 8.2, albumin 2 .7 Nutritional Hx/Data Height 1.78 m Height (Calculated Centimeters) 177.8 Current Weight (lbs) 61.235 kg Weight (Calculated Kilograms) 61.2 Weight (Calculated Grams) 49512.0 [place] Body Weight 166 % [place] Body Weight 81 Body Mass Index (BMI) 19.3 Recent Weight Change No Weight Status Approriate GI Symptoms GI Symptoms None Last BM 11/06 x 2 Difficult in: None Food Allergies No Cultural/Ethnic/[employer] Belief none indicated Usual diet at home Regular Skin Integrity/Comment: Cuco 16, Intact Current %PO Negligible < 25% Estimated Nutritional Goals BEE in Kcals: Using Current wt Calories/Kcals/Kg 61.3kg CBW 30-35 kcal/kg Kcals Calculated ~7007-0530 kcal/day Protein: Using Current wt Protein g/k.2-1.5 gm/kg Protein Calculated ~75-90 gm/day Fluid: ml ~6402-4123 ml/day (1 ml/kcal) Nutritional Problem 1. Problem Problem Inadequate oral intake realted to Etiology possible poor appetite aeb Signs/Symptoms: PO <25% of meals, 81% IBW Intervention/Recommendation Comments 1. Continue regular diet as tolerated by patient. 2. If patient remains hyperglycemic (on Solu-medrol) consider modifying to 60 gm CCHO diet at that time. 3. Encourage oral intake of meals and snacks. 4. Start Ensure Enlive TID with meals Expected Outcomes/Goals Expected Outcomes/Goals PO intake to meet >75% of nutritional needs, weight stability or trend toward ideal body weight, skin intact , nutrition related labs to approach WNL. F/U MR
[2018-11-08] MEDS: Lactobacillus Rhamnosus GG 15 Billion CFU CAP.SPRINK PO SCH (16:37)
--- NOTE | 2018-11-08 16:56 | Progress Notes ---
DATE: 11/07/2018 PULMONARY CRITICAL CARE PROGRESS NOTE SUBJECTIVE: The patient appears to be doing a little bit better today, still have some cough and hemoptysis, but improved a little bit. OBJECTIVE: VITAL SIGNS: Temperature is 97.9, pulse is 119, respirations 21, blood pressure 125/75 and saturation is 99% on 3 liters oxygen. CHEST: Good breath sounds, few rhonchi. HEART: Regular rhythm. ABDOMEN: Soft. EXTREMITIES: No edema. LABORATORY DATA: hemoglobin 12.3, hematocrit 36.9, platelets 144. ABGs: A pH 7.49, pCO2 of 23, pO2 174, bicarbonate 17, saturation 99%. D-dimer is 3890. Sodium is 126, potassium 3.5, BUN is 13, creatinine 0.7. IMPRESSION: 1. Respiratory failure. 2. Multifocal pneumonia. 3. Drug use, inflammation secondary to cocaine use. PLAN: 1. Continue IV antibiotics. ID followup. Hematology followup. The patient is getting bone marrow biopsy now. 2. Consider D-dimer, still some hemoptysis, less likely to be PE, but we will do a CT angio for better evaluation. 3. Follow up on the cultures. 4. Follow up chest x-ray. 5. Discussed with the patient's family at bedside in details. Prognosis is guarded. I will follow the patient with you. JOB# [id number] CHARANJIT
[2018-11-08] MEDS: Levofloxacin 750mg/150mL 750 MG/150 ML BAG IV SCH (19:10)
[2018-11-09] MEDS: D5-0.9%NS 1,000 ML IV SCH ×2 (00:19→10:42)
[2018-11-09] MEDS: INSULIN LISPRO SLIDING SCALE 100 UNITS/ML UNIT SUBQ SCH ×3 (00:19→12:11)
[2018-11-09] MEDS: SULFAMETHOXAZOLE IV SCH ×3 (01:51→17:31)
[2018-11-09] MEDS: DEXTROSE IV SCH ×3 (01:51→17:31)
[2018-11-09] MEDS: TMP IV SCH ×3 (01:51→17:31)
[2018-11-09] MEDS: Meropenem 2 GM in Sodium Chloride 0.9% 100 ML IV SCH ×2 (03:28→10:42)
[2018-11-09 05:40] LABS: HEMATOCRIT 33.2 % (41.0-60); HEMOGLOBIN 11.2 gm/dL (12-16); MEAN CELL VOLUME 86.8 fl (80-99); MEAN CORPUSCULAR HEMOGLOBIN 29.2 pg (26.0-30.0); MEAN CORPUSCULAR HGB CONC 33.7 pg (28.0-36.0); PLATELET COUNT 158 Th/cmm (150-400); RED BLOOD COUNT 3.82 Mil/cmm (4.30-5.70); RED CELL DISTRIBUTION WIDTH 12.5 % (11.5-20.0)
[2018-11-09] MEDS: methylPREDNISolone SS 40 mg Vial IVP SCH ×2 (05:43→21:52)
[2018-11-09 05:53] LABS: INR 0.91 (0.5-1.4)
[2018-11-09 06:01] LABS: ALBUMIN 2.6 gm/dL (4.2-5.5); ALKALINE PHOSPHATASE 25 U/L (34-104); ANION GAP 12.7 (7.0-16.0); BILIRUBIN,TOTAL 0.4 mg/dL (0.3-1.0); BUN - UREA NITROGEN 16 mg/dL (7-25); CALCIUM SERUM 8.3 mg/dL (8.6-10.3); CARBON DIOXIDE 22.4 mEq/L (21.0-31.0); CHLORIDE 101 mEq/L (98-107); CREATININE - SERUM 0.7 mg/dL (0.7-1.3); GFR AFRICAN-AMERICAN > 60.0 ml/min (>90); GFR NON AFRICAN-AMERICAN > 60.0 ml/min; GLUCOSE 128 mg/dL (70-105); POTASSIUM SERUM 3.1 mEq/L (3.5-5.1); SGOT 87 U/L (13-39); SGPT/ALT 73 U/L (7-52); SODIUM SERUM 133 mEq/L (136-145); TOTAL PROTEIN,SERUM 5.2 gm/dL (6.0-8.3)
[2018-11-09 06:04] LABS: DIL RUSSELL VIPER VENOM TIME 79.3 sec (0.0-47.0); DRVVT CONFIRM 1.7 ratio (0.8-1.2); DRVVT MIX 57.1 sec (0.0-47.0); HEXAGONAL PHASE PHOS. 19 sec (0-11)
[2018-11-09] MEDS: Pantoprazole 40 mg EC Tab PO SCH (06:34)
[2018-11-09] MEDS: Albuterol Nebulizer 2.5mg/3mL HHN SCH ×4 (06:52→19:00)
[2018-11-09] MEDS: Ipratropium Neb 0.5 mg/2.5 mL UD IH SCH ×4 (06:52→19:00)
[2018-11-09] MEDS ORDERED: Potassium Chloride 20 mEq ER Tab PO ONE ×3 (08:00→13:00)
--- NOTE | 2018-11-09 08:08 | Diagnostic Imaging Report ---
Exam: Portable chest x-ray HISTORY shortness of breath COMPARISON: 11/08/2018 Findings: Portable examination of chest was reviewed. The study demonstrates mild decrease in the right-sided infiltrate. The costophrenic angle and left side is blunted small effusion versus pleural thickening. Bony thorax is intact. The soft structures midline, the heart is not enlarged. IMPRESSION: mild improvement in aeration of right lung, decreased infiltrate. Small left pleural effusion versus pleural thickening. Follow-up exam is recommended.
[2018-11-09] MEDS: Lactobacillus Rhamnosus GG 15 Billion CFU CAP.SPRINK PO SCH ×2 (08:59→16:14)
--- NOTE | 2018-11-09 10:05 | General Progress Note ---
Subjective - Review of Systems Service Date: 11/09/18 Subjective: cough with phlegm, Feels better Objective - Results Result Diagrams: 11/09/18 04:15 11/09/18 04:15 Recent Labs: Laboratory Last Values WBC 1.0 Th/cmm (4.8-10.8) L* 11/09/18 04:15 RBC 3.82 Mil/cmm (4.30-5.70) L 11/09/18 04:15 Hgb 11.2 gm/dL (12-16) L 11/09/18 04:15 Hct 33.2 % (41.0-60) L 11/09/18 04:15 MCV 86.8 fl (80-99) 11/09/18 04:15 MCH 29.2 pg (26.0-30.0) 11/09/18 04:15 MCHC Differential 33.7 pg (28.0-36.0) 11/09/18 04:15 RDW 12.5 % (11.5-20.0) 11/09/18 04:15 Plt Count 158 Th/cmm (150-400) 11/09/18 04:15 MPV 8.0 fl 11/09/18 04:15 Add Manual Diff YES 11/09/18 04:15 Band Neutrophils % 0 % (0-10) 11/08/18 04:50 Neutrophils (Manual) 2 % (40-80) L 11/08/18 04:50 Lymphocytes 66 % (20-50) H 11/08/18 04:50 Monocytes 32 % (2-10) H 11/08/18 04:50 Eosinophils 0 % (0-5) 11/08/18 04:50 Basophils 0 % (0-3) 11/08/18 04:50 Platelet Estimate ADEQUATE (NORMAL) 11/08/18 04:50 Plt Count 169 Th/cmm (150-750) 11/06/18 18:32 PT 9.5 SECONDS (9.5-11.5) 11/09/18 04:15 INR 0.91 (0.5-1.4) 11/09/18 04:15 PTT (Actin FS) 41.9 SECONDS (26.0-38.0) H 11/09/18 04:15 Fibrinogen 500.0 mg/dL (200.0-400.0) H 11/08/18 04:50 D-Dimer 3890 ng/mL (100-400) H 11/06/18 18:32 Lupus Anticoag aPTT 59.7 sec (0.0-51.9) H 11/06/18 12:00 dRVVT Screen 79.3 sec (0.0-47.0) H 11/06/18 12:00 dRVVT Confirm Seconds 1.7 ratio (0.8-1.2) H 11/06/18 12:00 dRVVT Mix 57.1 sec (0.0-47.0) H 11/06/18 12:00 dRVVT 50:50 58.1 sec (0.0-48.9) H 11/06/18 12:00 Hexagonal Phospholipid 19 sec (0-11) H 11/06/18 12:00 Lupus Anticoag Interp Comment: 11/06/18 12:00 Specimen Source Arterial 11/07/18 07:39 Sample Site Right Radial 11/07/18 07:39 pH 7.498 (7.35-7.45) H 11/07/18 07:39 pCO2 23.3 mmHg (35.0-45.0) L* 11/07/18 07:39 pO2 174.3 mmHg (80.0-100.0) H 11/07/18 07:39 HCO3 17.7 mEq/L (20.0-26.0) L 11/07/18 07:39 Base Excess -3.4 mEq/L (-3.0-3.0) L 11/07/18 07:39 O2 Saturation 99.3 % (92.0-100.0) 11/07/18 07:39 Shiv Test Positive 11/07/18 07:39 Vent Rate NA 11/07/18 07:39 Inspired O2 32 11/07/18 07:39 Tidal Volume NA 11/07/18 07:39 PEEP NA 11/07/18 07:39 Pressure (ins/psv/peep) NA 11/07/18 07:39 Critical Value JG 11/07/18 07:39 Sodium 133 mEq/L (136-145) L 11/09/18 04:15 Potassium 3.1 mEq/L (3.5-5.1) L 11/09/18 04:15 Chloride 101 mEq/L (98-107) 11/09/18 04:15 Carbon Dioxide 22.4 mEq/L (21.0-31.0) 11/09/18 04:15 Anion Gap 12.7 (7.0-16.0) 11/09/18 04:15 BUN 16 mg/dL (7-25) 11/09/18 04:15 Creatinine 0.7 mg/dL (0.7-1.3) 11/09/18 04:15 Est GFR ( Amer) > 60.0 ml/min (>90) 11/09/18 04:15 Est GFR (Non-Af Amer) > 60.0 ml/min 11/09/18 04:15 BUN/Creatinine Ratio 22.9 11/09/18 04:15 Glucose 128 mg/dL (70-105) H 11/09/18 04:15 POC Glucose 108 MG/DL (70 - 105) H 11/09/18 05:19 Whole Bld Lactic Acid 1.35 mmol/L (0.60-1.99) 11/06/18 12:00 Uric Acid 1.6 mg/dL (4.4-7.6) L 11/07/18 05:00 Calcium 8.3 mg/dL (8.6-10.3) L 11/09/18 04:15 Magnesium 2.0 mg/dL (1.9-2.7) 11/08/18 04:50 Total Bilirubin 0.4 mg/dL (0.3-1.0) 11/09/18 04:15 AST 87 U/L (13-39) H 11/09/18 04:15 ALT 73 U/L (7-52) H 11/09/18 04:15 Alkaline Phosphatase 25 U/L (34-104) L 11/09/18 04:15 Lactate Dehydrogenase 119 U/L (140-271) L 11/06/18 18:32 Creatine Kinase 233 U/L (30-223) H 11/06/18 18:32 CK-MB (CK-2) 4.6 ng/mL (0.6-6.3) 11/06/18 18:32 Troponin I 0.03 ng/mL (0.01-0.05) 11/06/18 09:40 Total Protein 5.2 gm/dL (6.0-8.3) L 11/09/18 04:15 Albumin 2.6 gm/dL (4.2-5.5) L 11/09/18 04:15 Globulin 2.6 gm/dL 11/09/18 04:15 Albumin/Globulin Ratio 1.0 (1.0-1.8) 11/09/18 04:15 TSH 1.14 uIU/ml (0.34-5.60) 11/06/18 09:40 Urine Source CLEAN C 11/08/18 14:22 Urine Color YELLOW 11/08/18 14:22 Urine Clarity CLEAR (CLEAR) 11/08/18 14:22 Urine pH 6.5 (4.6 - 8.0) 11/08/18 14:22 Ur Specific [place] 1.020 (1.005-1.030) 11/08/18 14:22 Urine Protein TRACE mg/dL (NEGATIVE) 11/08/18 14:22 Urine Glucose (UA) >=1000 mg/dL (NEGATIVE) H 11/08/18 14:22 Urine Ketones NEGATIVE mg/dL (NEGATIVE) 11/08/18 14:22 Urine Blood SMALL (NEGATIVE) H 11/08/18 14:22 Urine Nitrate NEGATIVE (NEGATIVE) 11/08/18 14:22 Urine Bilirubin NEGATIVE (NEGATIVE) 11/08/18 14:22 Urine Urobilinogen 0.2 E.U./dL (0.2 - 1.0) 11/08/18 14:22 Ur Leukocyte Esterase NEGATIVE (NEGATIVE) 11/08/18 14:22 Urine RBC 0-2 /hpf (0-5) H 11/08/18 14:22 Urine WBC 0-2 /hpf (0-5) 11/08/18 14:22 Ur Epithelial Cells NONE SEEN /lpf (FEW) 11/08/18 14:22 Amorphous Sediment FEW URATES (NONE SEEN) 11/08/18 14:22 Urine Bacteria NONE SEEN /hpf (NONE SEEN) 11/08/18 14:22 Ur Random Sodium 32 mmol/L 11/07/18 10:00 Stool Occult Blood NEGATIVE (NEGATIVE) 11/08/18 17:50 Vancomycin Trough 11.2 ug/mL (5-10) H 11/09/18 08:00 Urine Opiates Screen NEGATIVE (NEGATIVE) 11/06/18 10:22 Urine Methadone Screen NEGATIVE (NEGATIVE) 11/06/18 10:22 Ur Barbiturates Screen NEGATIVE (NEGATIVE) 11/06/18 10:22 Ur Tricyclics Screen NEGATIVE (NEGATIVE) 11/06/18 10:22 Ur Phencyclidine Scrn NEGATIVE (NEGATIVE) 11/06/18 10:22 Amphetamines Screen NEGATIVE (NEGATIVE) 11/06/18 10:22 U Methamphetamines Scrn NEGATIVE (NEGATIVE) 11/06/18 10:22 U Benzodiazepines Scrn NEGATIVE (NEGATIVE) 11/06/18 10:22 U Cocaine Metab Screen POSITIVE (NEGATIVE) H 11/06/18 10:22 U Cannabinoids Screen POSITIVE (NEGATIVE) H 11/06/18 10:22 Hepatitis A IgM Ab Negative (Negative) 11/06/18 12:00 Hep Bs Antigen Negative (Negative) 11/06/18 12:00 Hep B Core IgM Ab Negative (Negative) 11/06/18 12:00 Hepatitis C Antibody <0.1 s/co ratio (0.0-0.9) 11/06/18 12:00 HIV 1&2 Antibody Screen NEGATIVE (NEG) 11/06/18 10:22 Influenza A (Rapid) NEG FOR INF A 11/08/18 13:00 Influenza B (Rapid) NEG FOR INF B 11/08/18 13:00 - Physical Exam Vitals and I&O: Vital Signs Temp 98.5 F 11/09/18 08:00 Pulse 97 11/09/18 09:00 Resp 28 11/09/18 09:00 BP 119/71 11/09/18 09:00 Pulse Ox 97 11/09/18 09:00 Intake & Output 11/08/18 11/09/18 11/09/18 18:59 06:59 18:59 Intake Total 4101.667 3540 Output Total 3 1700 Balance 4098.667 1840 Weight (lbs) 62.732 kg 62.823 kg Intake: Intake, IV Amount 3827.807 5406 D5-0.9%Ns 1,000 ml @ 100 381.667 600 mls/hr IV .Q10H [facility] Rx#: [id number] Fluconazole 400mg/200mL 200 400 mg In 200 ml @ 100 mls/hr IV Q24HR [facility] Rx#: [id number] Levofloxacin 750mg/150mL 150 750 mg In 150 ml @ 100 mls/hr IV Q24HR [facility] Rx#: [id number] Meropenem 2 gm In Sodium 100 200 Chloride 0.9% 100 ml @ 100 mls/hr IV Q8HR@0300, 1100,1900 [facility] Rx#: [id number] Sulfamethoxazole/TMP 20 520 1040 ml In Dextrose 5% 500 ml @ 346.667 mls/hr IV Q8H [facility] Rx#:[id number] Vancomycin HCl 1 gm In 500 250 Sodium Chloride 0.9% 250 ml @ 165 mls/hr IV Q8HR@ 0100,0900,1700 [facility] Rx#: [id number] Oral 2400 1300 Output: Urine 1700 Stool 3 Other: # Voids 5 4 # Bowel Movements 0 Stool Characteristics Soft Brown Weight Source Bedscale Bedscale Active Medications: Current Medications Acetaminophen (Tylenol) 650 mg PO Q4H PRN PRN Reason: Pain Or Fever above 101 Stop: 01/05/19 12:37 Last Admin: 11/08/18 16:37 Dose: 650 mg Al Hydrox/Mg Hydrox/Simethicone (Maalox) 30 ml PO Q6H PRN PRN Reason: Dyspepsia Stop: 01/05/19 12:37 Albuterol Sulfate (Albuterol 2.5mg/3ml Neb Ud) 2.5 mg HHN QIDRT [facility] Stop: 01/05/19 14:59 Last Admin: 11/09/18 06:52 Dose: 2.5 mg Alprazolam (Xanax) 0.25 mg PO Q8HR PRN; Protocol PRN Reason: Anxiety Stop: 01/05/19 20:19 Last Admin: 11/09/18 00:18 Dose: 0.25 mg Dextrose (D50w) 50 ml IVP PRN PRN PRN Reason: Blood Glucose less than 70 Stop: 01/06/19 14:23 Dextrose (Glutose 40%) 18.75 gm PO PRN PRN PRN Reason: Blood Glucose less than 70 Stop: 01/06/19 14:23 Filgrastim (Neupogen) 480 mcg SUBQ DAILY [facility] Stop: 01/05/19 18:44 Last Admin: 11/08/18 09:21 Dose: 480 mcg Glucagon (Glucagen) 1 mg IM PRN PRN PRN Reason: Blood Glucose less than 70 Stop: 01/06/19 14:23 Guaifenesin (Robitussin) 200 mg PO Q4HR PRN PRN Reason: Cough or Congestion Stop: 01/05/19 12:37 Fluconazole/Sodium Chloride (Diflucan) 400 mg in 200 mls @ 100 mls/hr IV Q24HR [facility] Stop: 01/05/19 13:59 Last Infusion: 11/08/18 18:19 Dose: Infused Trimethoprim/Sulfamethoxazole (20 ml/ Dextrose) 520 mls @ 346.667 mls/hr IV Q8H [facility] Stop: 01/05/19 18:29 Last Infusion: 11/09/18 03:25 Dose: Infused Levofloxacin (Levaquin Pb) 750 mg in 150 mls @ 100 mls/hr IV Q24HR [facility] Stop: 11/12/18 20:29 Last Infusion: 11/08/18 20:40 Dose: Infused Meropenem 2 gm/ Sodium (Chloride) 100 mls @ 100 mls/hr IV Q8HR@0300,1100,1900 [facility] Stop: 01/05/19 20:59 Last Infusion: 11/09/18 04:30 Dose: Infused Dextrose/Sodium Chloride (D5-0.9%Ns) 1,000 mls @ 100 mls/hr IV .Q10H [facility] Stop: 01/07/19 13:59 Last Admin: 11/09/18 00:19 Dose: 100 mls/hr Ibuprofen (Motrin) 800 mg PO TID PRN PRN Reason: Pain (Moderate) Stop: 01/06/19 20:59 Insulin Human Lispro (Humalog Insulin Sliding Scale) 0 units SUBQ Q6HR [facility]; Protocol Stop: 01/06/19 17:59 Last Admin: 11/09/18 05:44 Dose: Not Given Ipratropium [place] (Atrovent Neb 0.5mg/2.5ml) 0.5 mg IH QIDRT [facility] Stop: 01/05/19 14:59 Last Admin: 11/09/18 06:52 Dose: 0.5 mg Lactobacillus Rhamnosus (Culturelle 15b) 1 each PO BID [facility] Stop: 01/07/19 16:59 Last Admin: 11/09/18 08:59 Dose: 1 each Methylprednisolone Sodium Succinate (Solu-Medrol) 40 mg IVP Q8HR [facility] Stop: 01/07/19 20:59 Last Admin: 11/09/18 05:43 Dose: 40 mg Miscellaneous (Vancomycin Iv Per Pharmacy) 1 ea MC PRN PRN PRN Reason: VANCOMYCIN IV PER RX Stop: 01/05/19 13:19 Morphine Sulfate (Morphine) 2 mg IVP Q4H PRN PRN Reason: Pain (Severe) Stop: 01/05/19 12:37 Last Admin: 11/08/18 03:53 Dose: 2 mg Ondansetron HCl (Zofran) 4 mg IV Q8H PRN PRN Reason: Nausea / Vomiting Stop: 01/05/19 12:37 Last Admin: 11/08/18 02:05 Dose: 4 mg Pantoprazole Sodium (Protonix) 40 mg PO QDAC [facility] Stop: 01/05/19 16:29 Last Admin: 11/09/18 06:34 Dose: 40 mg Tramadol HCl (Ultram) 50 mg PO Q6HR PRN PRN Reason: Pain (Severe) Stop: 01/05/19 20:17 Last Admin: 11/08/18 18:25 Dose: 50 mg Zolpidem Tartrate (Ambien) 10 mg PO HS PRN PRN Reason: Insomnia Stop: 01/05/19 12:37 Last Admin: 11/08/18 20:17 Dose: 10 mg General: Alert, No acute distress HEENT: Atraumatic, Mucous membr. moist/pink Neck: Supple, Thyromegaly, +2 carotid pulse wo bruit Cardiovascular: Regular rate, Normal S1, Normal S2 Lungs: Clear to auscultation Abdomen: Bowel sounds, Soft Extremities: no Edema Neurological: Sensation intact Skin: no Rash Psych/Mental Status: Mood NL Assessment/Plan - Assessment Assessment: * Neutropenia : could be bone marrow suppression likely vs. leukemic infilterate less likely. will need bone marrow to evaluate. Pal More Dr. pathologist who confirmed no leukemia cells on peripheral smear. Continue with current antibiotics and will do marrow biopsy/aspirate when kit is available. Full consult dictated. 11/09: neutropenia improving. continue neupogen, no evidence of leukemia on flowcytometry per my conversation with [place]. 3% blasts only in marrow. dw sister bedside. Nutritional Asmnt/Malnutr-PDOC - Dietary Evaluation Malnutrition Findings (Please click <Entered> for more info): Nutritional Asmnt/Malnutrition Start: 11/07/18 10: 55 Text: Status: Complete Freq: Protocol: Document 11/07/18 10:55 DANAE (Rec: 11/07/18 11:13 DANAE [id number]) Nutritional Asmnt/Malnutrition Patient General Information Nutritional Screening High Risk Diagnosis Respiratory Failure, dehydration Pertinent Medical Hx/Surgical Hx None Subjective Information Per H&P, patient positive for cocaine and marijuana. Spoke with patient's sister, who states he has a sore throat and prefers to eat cold foods right now. She also states he eats "kid foods", and likes snack foods. Current Diet Order/ Nutrition Support Regular Patient / S.O Not Indicated Pertinent Medications maalox, solu-medrol, abx, zofran, protonix Pertinent Labs (11/07) Na 126 (improved), glucose 277, Ca 8.2, albumin 2 .7 Nutritional Hx/Data Height 1.78 m Height (Calculated Centimeters) 177.8 Current Weight (lbs) 61.235 kg Weight (Calculated Kilograms) 61.2 Weight (Calculated Grams) 31994.0 [place] Body Weight 166 % [place] Body Weight 81 Body Mass Index (BMI) 19.3 Recent Weight Change No Weight Status Approriate GI Symptoms GI Symptoms None Last BM 11/06 x 2 Difficult in: None Food Allergies No Cultural/Ethnic/Christian Belief none indicated Usual diet at home Regular Skin Integrity/Comment: Cuco 16, Intact Current %PO Negligible < 25% Estimated Nutritional Goals BEE in Kcals: Using Current wt Calories/Kcals/Kg 61.3kg CBW 30-35 kcal/kg Kcals Calculated ~3509-7631 kcal/day Protein: Using Current wt Protein g/k.2-1.5 gm/kg Protein Calculated ~75-90 gm/day Fluid: ml ~5455-3979 ml/day (1 ml/kcal) Nutritional Problem 1. Problem Problem Inadequate oral intake realted to Etiology possible poor appetite aeb Signs/Symptoms: PO <25% of meals, 81% IBW Intervention/Recommendation Comments 1. Continue regular diet as tolerated by patient. 2. If patient remains hyperglycemic (on Solu-medrol) consider modifying to 60 gm CCHO diet at that time. 3. Encourage oral intake of meals and snacks. 4. Start Ensure Enlive TID with meals Expected Outcomes/Goals Expected Outcomes/Goals PO intake to meet >75% of nutritional needs, weight stability or trend toward ideal body weight, skin intact , nutrition related labs to approach WNL. F/U MR 11/10-
--- NOTE | 2018-11-09 12:18 | Infectious Disease Prog Note ---
Infectious Disease Subjective - Review of Systems Service Date: 11/09/18 Subjective: weak, doing better, Infectious Disease Objective - Results Result Diagrams: 11/09/18 04:15 11/09/18 04:15 Recent Labs: Laboratory Last Values WBC 1.0 Th/cmm (4.8-10.8) L* 11/09/18 04:15 RBC 3.82 Mil/cmm (4.30-5.70) L 11/09/18 04:15 Hgb 11.2 gm/dL (12-16) L 11/09/18 04:15 Hct 33.2 % (41.0-60) L 11/09/18 04:15 MCV 86.8 fl (80-99) 11/09/18 04:15 MCH 29.2 pg (26.0-30.0) 11/09/18 04:15 MCHC Differential 33.7 pg (28.0-36.0) 11/09/18 04:15 RDW 12.5 % (11.5-20.0) 11/09/18 04:15 Plt Count 158 Th/cmm (150-400) 11/09/18 04:15 MPV 8.0 fl 11/09/18 04:15 Add Manual Diff YES 11/09/18 04:15 Band Neutrophils % 0 % (0-10) 11/08/18 04:50 Neutrophils (Manual) 2 % (40-80) L 11/08/18 04:50 Lymphocytes 66 % (20-50) H 11/08/18 04:50 Monocytes 32 % (2-10) H 11/08/18 04:50 Eosinophils 0 % (0-5) 11/08/18 04:50 Basophils 0 % (0-3) 11/08/18 04:50 Platelet Estimate ADEQUATE (NORMAL) 11/08/18 04:50 Plt Count 169 Th/cmm (150-750) 11/06/18 18:32 PT 9.5 SECONDS (9.5-11.5) 11/09/18 04:15 INR 0.91 (0.5-1.4) 11/09/18 04:15 PTT (Actin FS) 41.9 SECONDS (26.0-38.0) H 11/09/18 04:15 Fibrinogen 500.0 mg/dL (200.0-400.0) H 11/08/18 04:50 D-Dimer 3890 ng/mL (100-400) H 11/06/18 18:32 Lupus Anticoag aPTT 59.7 sec (0.0-51.9) H 11/06/18 12:00 dRVVT Screen 79.3 sec (0.0-47.0) H 11/06/18 12:00 dRVVT Confirm Seconds 1.7 ratio (0.8-1.2) H 11/06/18 12:00 dRVVT Mix 57.1 sec (0.0-47.0) H 11/06/18 12:00 dRVVT 50:50 58.1 sec (0.0-48.9) H 11/06/18 12:00 Hexagonal Phospholipid 19 sec (0-11) H 11/06/18 12:00 Lupus Anticoag Interp Comment: 11/06/18 12:00 Specimen Source Arterial 11/07/18 07:39 Sample Site Right Radial 11/07/18 07:39 pH 7.498 (7.35-7.45) H 11/07/18 07:39 pCO2 23.3 mmHg (35.0-45.0) L* 11/07/18 07:39 pO2 174.3 mmHg (80.0-100.0) H 11/07/18 07:39 HCO3 17.7 mEq/L (20.0-26.0) L 11/07/18 07:39 Base Excess -3.4 mEq/L (-3.0-3.0) L 11/07/18 07:39 O2 Saturation 99.3 % (92.0-100.0) 11/07/18 07:39 Shiv Test Positive 11/07/18 07:39 Vent Rate NA 11/07/18 07:39 Inspired O2 32 11/07/18 07:39 Tidal Volume NA 11/07/18 07:39 PEEP NA 11/07/18 07:39 Pressure (ins/psv/peep) NA 11/07/18 07:39 Critical Value JG 11/07/18 07:39 Sodium 133 mEq/L (136-145) L 11/09/18 04:15 Potassium 3.1 mEq/L (3.5-5.1) L 11/09/18 04:15 Chloride 101 mEq/L (98-107) 11/09/18 04:15 Carbon Dioxide 22.4 mEq/L (21.0-31.0) 11/09/18 04:15 Anion Gap 12.7 (7.0-16.0) 11/09/18 04:15 BUN 16 mg/dL (7-25) 11/09/18 04:15 Creatinine 0.7 mg/dL (0.7-1.3) 11/09/18 04:15 Est GFR ( Amer) > 60.0 ml/min (>90) 11/09/18 04:15 Est GFR (Non-Af Amer) > 60.0 ml/min 11/09/18 04:15 BUN/Creatinine Ratio 22.9 11/09/18 04:15 Glucose 128 mg/dL (70-105) H 11/09/18 04:15 POC Glucose 102 MG/DL (70 - 105) 11/09/18 11:58 Whole Bld Lactic Acid 1.35 mmol/L (0.60-1.99) 11/06/18 12:00 Uric Acid 1.6 mg/dL (4.4-7.6) L 11/07/18 05:00 Calcium 8.3 mg/dL (8.6-10.3) L 11/09/18 04:15 Magnesium 2.0 mg/dL (1.9-2.7) 11/08/18 04:50 Total Bilirubin 0.4 mg/dL (0.3-1.0) 11/09/18 04:15 AST 87 U/L (13-39) H 11/09/18 04:15 ALT 73 U/L (7-52) H 11/09/18 04:15 Alkaline Phosphatase 25 U/L (34-104) L 11/09/18 04:15 Lactate Dehydrogenase 119 U/L (140-271) L 11/06/18 18:32 Creatine Kinase 233 U/L (30-223) H 11/06/18 18:32 CK-MB (CK-2) 4.6 ng/mL (0.6-6.3) 11/06/18 18:32 Troponin I 0.03 ng/mL (0.01-0.05) 11/06/18 09:40 Total Protein 5.2 gm/dL (6.0-8.3) L 11/09/18 04:15 Albumin 2.6 gm/dL (4.2-5.5) L 11/09/18 04:15 Globulin 2.6 gm/dL 11/09/18 04:15 Albumin/Globulin Ratio 1.0 (1.0-1.8) 11/09/18 04:15 TSH 1.14 uIU/ml (0.34-5.60) 11/06/18 09:40 Urine Source CLEAN C 11/08/18 14:22 Urine Color YELLOW 11/08/18 14:22 Urine Clarity CLEAR (CLEAR) 11/08/18 14:22 Urine pH 6.5 (4.6 - 8.0) 11/08/18 14:22 Ur Specific [place] 1.020 (1.005-1.030) 11/08/18 14:22 Urine Protein TRACE mg/dL (NEGATIVE) 11/08/18 14:22 Urine Glucose (UA) >=1000 mg/dL (NEGATIVE) H 11/08/18 14:22 Urine Ketones NEGATIVE mg/dL (NEGATIVE) 11/08/18 14:22 Urine Blood SMALL (NEGATIVE) H 11/08/18 14:22 Urine Nitrate NEGATIVE (NEGATIVE) 11/08/18 14:22 Urine Bilirubin NEGATIVE (NEGATIVE) 11/08/18 14:22 Urine Urobilinogen 0.2 E.U./dL (0.2 - 1.0) 11/08/18 14:22 Ur Leukocyte Esterase NEGATIVE (NEGATIVE) 11/08/18 14:22 Urine RBC 0-2 /hpf (0-5) H 11/08/18 14:22 Urine WBC 0-2 /hpf (0-5) 11/08/18 14:22 Ur Epithelial Cells NONE SEEN /lpf (FEW) 11/08/18 14:22 Amorphous Sediment FEW URATES (NONE SEEN) 11/08/18 14:22 Urine Bacteria NONE SEEN /hpf (NONE SEEN) 11/08/18 14:22 Ur Random Sodium 32 mmol/L 11/07/18 10:00 Stool Occult Blood NEGATIVE (NEGATIVE) 11/08/18 17:50 Vancomycin Trough 11.2 ug/mL (5-10) H 11/09/18 08:00 Urine Opiates Screen NEGATIVE (NEGATIVE) 11/06/18 10:22 Urine Methadone Screen NEGATIVE (NEGATIVE) 11/06/18 10:22 Ur Barbiturates Screen NEGATIVE (NEGATIVE) 11/06/18 10:22 Ur Tricyclics Screen NEGATIVE (NEGATIVE) 11/06/18 10:22 Ur Phencyclidine Scrn NEGATIVE (NEGATIVE) 11/06/18 10:22 Amphetamines Screen NEGATIVE (NEGATIVE) 11/06/18 10:22 U Methamphetamines Scrn NEGATIVE (NEGATIVE) 11/06/18 10:22 U Benzodiazepines Scrn NEGATIVE (NEGATIVE) 11/06/18 10:22 U Cocaine Metab Screen POSITIVE (NEGATIVE) H 11/06/18 10:22 U Cannabinoids Screen POSITIVE (NEGATIVE) H 11/06/18 10:22 Hepatitis A IgM Ab Negative (Negative) 11/06/18 12:00 Hep Bs Antigen Negative (Negative) 11/06/18 12:00 Hep B Core IgM Ab Negative (Negative) 11/06/18 12:00 Hepatitis C Antibody <0.1 s/co ratio (0.0-0.9) 11/06/18 12:00 HIV 1&2 Antibody Screen NEGATIVE (NEG) 11/06/18 10:22 Influenza A (Rapid) NEG FOR INF A 11/08/18 13:00 Influenza B (Rapid) NEG FOR INF B 11/08/18 13:00 - Physical Exam Vitals and I&O: Vital Signs Temp 98.5 F 11/09/18 08:00 Pulse 83 11/09/18 11:02 Resp 27 11/09/18 11:02 BP 121/75 11/09/18 11:00 Pulse Ox 96 11/09/18 11:02 Intake & Output 11/08/18 11/09/18 11/09/18 18:59 06:59 18:59 Intake Total 4101.667 3540 1000 Output Total 3 1700 Balance 4098.667 1840 1000 Weight (lbs) 62.732 kg 62.823 kg Intake: Intake, IV Amount 0455.379 9204 1000 D5-0.9%Ns 1,000 ml @ 100 381.009 342 6619 mls/hr IV .Q10H [facility] Rx#: [id number] Fluconazole 400mg/200mL 200 400 mg In 200 ml @ 100 mls/hr IV Q24HR [facility] Rx#: [id number] Levofloxacin 750mg/150mL 150 750 mg In 150 ml @ 100 mls/hr IV Q24HR [facility] Rx#: [id number] Meropenem 2 gm In Sodium 100 200 Chloride 0.9% 100 ml @ 100 mls/hr IV Q8HR@0300, 1100,1900 [facility] Rx#: [id number] Sulfamethoxazole/TMP 20 520 1040 ml In Dextrose 5% 500 ml @ 346.667 mls/hr IV Q8H [facility] Rx#:[id number] Vancomycin HCl 1 gm In 500 250 Sodium Chloride 0.9% 250 ml @ 165 mls/hr IV Q8HR@ 0100,0900,1700 [facility] Rx#: [id number] Oral 2400 1300 Output: Urine 1700 Stool 3 Other: # Voids 5 4 # Bowel Movements 0 Stool Characteristics Soft Brown Weight Source Bedscale Bedscale Active Medications: Current Medications Acetaminophen (Tylenol) 650 mg PO Q4H PRN PRN Reason: Pain Or Fever above 101 Stop: 01/05/19 12:37 Last Admin: 11/08/18 16:37 Dose: 650 mg Al Hydrox/Mg Hydrox/Simethicone (Maalox) 30 ml PO Q6H PRN PRN Reason: Dyspepsia Stop: 01/05/19 12:37 Albuterol Sulfate (Albuterol 2.5mg/3ml Neb Ud) 2.5 mg HHN QIDRT [facility] Stop: 01/05/19 14:59 Last Admin: 11/09/18 10:55 Dose: 2.5 mg Alprazolam (Xanax) 0.25 mg PO Q8HR PRN; Protocol PRN Reason: Anxiety Stop: 01/05/19 20:19 Last Admin: 11/09/18 00:18 Dose: 0.25 mg Dextrose (D50w) 50 ml IVP PRN PRN PRN Reason: Blood Glucose less than 70 Stop: 01/06/19 14:23 Dextrose (Glutose 40%) 18.75 gm PO PRN PRN PRN Reason: Blood Glucose less than 70 Stop: 01/06/19 14:23 Filgrastim (Neupogen) 480 mcg SUBQ DAILY [facility] Stop: 01/05/19 18:44 Last Admin: 11/08/18 09:21 Dose: 480 mcg Glucagon (Glucagen) 1 mg IM PRN PRN PRN Reason: Blood Glucose less than 70 Stop: 01/06/19 14:23 Guaifenesin (Robitussin) 200 mg PO Q4HR PRN PRN Reason: Cough or Congestion Stop: 01/05/19 12:37 Fluconazole/Sodium Chloride (Diflucan) 400 mg in 200 mls @ 100 mls/hr IV Q24HR [facility] Stop: 01/05/19 13:59 Last Infusion: 11/08/18 18:19 Dose: Infused Trimethoprim/Sulfamethoxazole (20 ml/ Dextrose) 520 mls @ 346.667 mls/hr IV Q8H [facility] Stop: 01/05/19 18:29 Last Admin: 11/09/18 12:02 Dose: 345 mls/hr Levofloxacin (Levaquin Pb) 750 mg in 150 mls @ 100 mls/hr IV Q24HR [facility] Stop: 11/12/18 20:29 Last Infusion: 11/08/18 20:40 Dose: Infused Meropenem 2 gm/ Sodium (Chloride) 100 mls @ 100 mls/hr IV Q8HR@0300,1100,1900 [facility] Stop: 01/05/19 20:59 Last Admin: 11/09/18 10:42 Dose: 100 mls/hr Dextrose/Sodium Chloride (D5-0.9%Ns) 1,000 mls @ 100 mls/hr IV .Q10H [facility] Stop: 01/07/19 13:59 Last Admin: 11/09/18 10:42 Dose: 100 mls/hr Vancomycin HCl 1 gm/ Sodium (Chloride) 250 mls @ 165 mls/hr IV Q6H [facility] Stop: 01/08/19 14:59 Ibuprofen (Motrin) 800 mg PO TID PRN PRN Reason: Pain (Moderate) Stop: 01/06/19 20:59 Insulin Human Lispro (Humalog Insulin Sliding Scale) 0 units SUBQ Q6HR [facility]; Protocol Stop: 01/06/19 17:59 Last Admin: 11/09/18 12:11 Dose: Not Given Ipratropium [place] (Atrovent Neb 0.5mg/2.5ml) 0.5 mg IH QIDRT [facility] Stop: 01/05/19 14:59 Last Admin: 11/09/18 10:55 Dose: 0.5 mg Lactobacillus Rhamnosus (Culturelle 15b) 1 each PO BID [facility] Stop: 01/07/19 16:59 Last Admin: 11/09/18 08:59 Dose: 1 each Methylprednisolone Sodium Succinate (Solu-Medrol) 40 mg IVP Q8HR [facility] Stop: 01/07/19 20:59 Last Admin: 11/09/18 05:43 Dose: 40 mg Miscellaneous (Vancomycin Iv Per Pharmacy) 1 ea [facility] PRN PRN PRN Reason: VANCOMYCIN IV PER RX Stop: 01/05/19 13:19 Morphine Sulfate (Morphine) 2 mg IVP Q4H PRN PRN Reason: Pain (Severe) Stop: 01/05/19 12:37 Last Admin: 11/08/18 03:53 Dose: 2 mg Ondansetron HCl (Zofran) 4 mg IV Q8H PRN PRN Reason: Nausea / Vomiting Stop: 01/05/19 12:37 Last Admin: 11/08/18 02:05 Dose: 4 mg Pantoprazole Sodium (Protonix) 40 mg PO QDAC [facility] Stop: 01/05/19 16:29 Last Admin: 11/09/18 06:34 Dose: 40 mg Tramadol HCl (Ultram) 50 mg PO Q6HR PRN PRN Reason: Pain (Severe) Stop: 01/05/19 20:17 Last Admin: 11/08/18 18:25 Dose: 50 mg Zolpidem Tartrate (Ambien) 10 mg PO HS PRN PRN Reason: Insomnia Stop: 01/05/19 12:37 Last Admin: 11/08/18 20:17 Dose: 10 mg General: no acute distress, cachectic HEENT: atraumatic, normocephalic, PERRLA, EOMI Neck: supple, no thyromegaly Cardiovascular: S1S2, regular Lungs: clear to percussion, crackles, rhonchi Abdomen: soft, no tender, no distended, no mass, no rebound, no hepatomegaly Extremities: no cyanosis, no clubbing, no edema Neurological: awake, alert, oriented Skin: intact, other (smal pustules.) Infectious Disease Assmt/Plan - Assessment Assessment: 1. Severe neutropenia. improving WBC 0.3>1K. 2. Extensive pneumonia, both lung, inflammatory versus infectious. 3. Pustules. 4. Hyponatremia. 5. Sepsis. 6. Respiratory failure with hypoxemia. - Plan Plan: Dc vanco IV, diflucan and meropenem and start Zosyn. Continue bactrim. Check ECHO. Nutritional Asmnt/Malnutr-PDOC - Dietary Evaluation Malnutrition Findings (Please click <Entered> for more info): Nutritional Asmnt/Malnutrition Start: 11/07/18 10: 55 Text: Status: Complete Freq: Protocol: Document 11/07/18 10:55 DANAE (Rec: 11/07/18 11:13 DANAE [id number]) Nutritional Asmnt/Malnutrition Patient General Information Nutritional Screening High Risk Diagnosis Respiratory Failure, dehydration Pertinent Medical Hx/Surgical Hx None Subjective Information Per H&P, patient positive for cocaine and marijuana. Spoke with patient's sister, who states he has a sore throat and prefers to eat cold foods right now. She also states he eats "kid foods", and likes snack foods. Current Diet Order/ Nutrition Support Regular Patient / S.O Not Indicated Pertinent Medications maalox, solu-medrol, abx, zofran, protonix Pertinent Labs (11/07) Na 126 (improved), glucose 277, Ca 8.2, albumin 2 .7 Nutritional Hx/Data Height 1.78 m Height (Calculated Centimeters) 177.8 Current Weight (lbs) 61.235 kg Weight (Calculated Kilograms) 61.2 Weight (Calculated Grams) 34467.0 [place] Body Weight 166 % [place] Body Weight 81 Body Mass Index (BMI) 19.3 Recent Weight Change No Weight Status Approriate GI Symptoms GI Symptoms None Last BM 11/06 x 2 Difficult in: None Food Allergies No Cultural/Ethnic/Mosque Belief none indicated Usual diet at home Regular Skin Integrity/Comment: Cuco 16, Intact Current %PO Negligible < 25% Estimated Nutritional Goals BEE in Kcals: Using Current wt Calories/Kcals/Kg 61.3kg CBW 30-35 kcal/kg Kcals Calculated ~5975-6897 kcal/day Protein: Using Current wt Protein g/k.2-1.5 gm/kg Protein Calculated ~75-90 gm/day Fluid: ml ~4930-6933 ml/day (1 ml/kcal) Nutritional Problem 1. Problem Problem Inadequate oral intake realted to Etiology possible poor appetite aeb Signs/Symptoms: PO <25% of meals, 81% IBW Intervention/Recommendation Comments 1. Continue regular diet as tolerated by patient. 2. If patient remains hyperglycemic (on Solu-medrol) consider modifying to 60 gm CCHO diet at that time. 3. Encourage oral intake of meals and snacks. 4. Start Ensure Enlive TID with meals Expected Outcomes/Goals Expected Outcomes/Goals PO intake to meet >75% of nutritional needs, weight stability or trend toward ideal body weight, skin intact , nutrition related labs to approach WNL. F/U MR 11/10-
--- NOTE | 2018-11-09 12:22 | Internal Medicine Prog Note ---
Internal Medicine Subjective - Subjective Patient seen and examined:: with staff, chart reviewed Patient is:: awake, verbal, interactive, in bed Patient Complaints of:: congestion, cough, pain with urination, LBP, headache, chest pain, unable to sleep Per staff patient has:: no adverse event, poor appetite, tolerating meds Internal Medicine Objective - Results Result Diagrams: 11/09/18 04:15 11/09/18 04:15 Recent Labs: Laboratory Last Values WBC 1.0 Th/cmm (4.8-10.8) L* 11/09/18 04:15 RBC 3.82 Mil/cmm (4.30-5.70) L 11/09/18 04:15 Hgb 11.2 gm/dL (12-16) L 11/09/18 04:15 Hct 33.2 % (41.0-60) L 11/09/18 04:15 MCV 86.8 fl (80-99) 11/09/18 04:15 MCH 29.2 pg (26.0-30.0) 11/09/18 04:15 MCHC Differential 33.7 pg (28.0-36.0) 11/09/18 04:15 RDW 12.5 % (11.5-20.0) 11/09/18 04:15 Plt Count 158 Th/cmm (150-400) 11/09/18 04:15 MPV 8.0 fl 11/09/18 04:15 Add Manual Diff YES 11/09/18 04:15 Band Neutrophils % 0 % (0-10) 11/08/18 04:50 Neutrophils (Manual) 2 % (40-80) L 11/08/18 04:50 Lymphocytes 66 % (20-50) H 11/08/18 04:50 Monocytes 32 % (2-10) H 11/08/18 04:50 Eosinophils 0 % (0-5) 11/08/18 04:50 Basophils 0 % (0-3) 11/08/18 04:50 Platelet Estimate ADEQUATE (NORMAL) 11/08/18 04:50 Plt Count 169 Th/cmm (150-750) 11/06/18 18:32 PT 9.5 SECONDS (9.5-11.5) 11/09/18 04:15 INR 0.91 (0.5-1.4) 11/09/18 04:15 PTT (Actin FS) 41.9 SECONDS (26.0-38.0) H 11/09/18 04:15 Fibrinogen 500.0 mg/dL (200.0-400.0) H 11/08/18 04:50 D-Dimer 3890 ng/mL (100-400) H 11/06/18 18:32 Lupus Anticoag aPTT 59.7 sec (0.0-51.9) H 11/06/18 12:00 dRVVT Screen 79.3 sec (0.0-47.0) H 11/06/18 12:00 dRVVT Confirm Seconds 1.7 ratio (0.8-1.2) H 11/06/18 12:00 dRVVT Mix 57.1 sec (0.0-47.0) H 11/06/18 12:00 dRVVT 50:50 58.1 sec (0.0-48.9) H 11/06/18 12:00 Hexagonal Phospholipid 19 sec (0-11) H 11/06/18 12:00 Lupus Anticoag Interp Comment: 11/06/18 12:00 Specimen Source Arterial 11/07/18 07:39 Sample Site Right Radial 11/07/18 07:39 pH 7.498 (7.35-7.45) H 11/07/18 07:39 pCO2 23.3 mmHg (35.0-45.0) L* 11/07/18 07:39 pO2 174.3 mmHg (80.0-100.0) H 11/07/18 07:39 HCO3 17.7 mEq/L (20.0-26.0) L 11/07/18 07:39 Base Excess -3.4 mEq/L (-3.0-3.0) L 11/07/18 07:39 O2 Saturation 99.3 % (92.0-100.0) 11/07/18 07:39 Shiv Test Positive 11/07/18 07:39 Vent Rate NA 11/07/18 07:39 Inspired O2 32 11/07/18 07:39 Tidal Volume NA 11/07/18 07:39 PEEP NA 11/07/18 07:39 Pressure (ins/psv/peep) NA 11/07/18 07:39 Critical Value JG 11/07/18 07:39 Sodium 133 mEq/L (136-145) L 11/09/18 04:15 Potassium 3.1 mEq/L (3.5-5.1) L 11/09/18 04:15 Chloride 101 mEq/L (98-107) 11/09/18 04:15 Carbon Dioxide 22.4 mEq/L (21.0-31.0) 11/09/18 04:15 Anion Gap 12.7 (7.0-16.0) 11/09/18 04:15 BUN 16 mg/dL (7-25) 11/09/18 04:15 Creatinine 0.7 mg/dL (0.7-1.3) 11/09/18 04:15 Est GFR ( Amer) > 60.0 ml/min (>90) 11/09/18 04:15 Est GFR (Non-Af Amer) > 60.0 ml/min 11/09/18 04:15 BUN/Creatinine Ratio 22.9 11/09/18 04:15 Glucose 128 mg/dL (70-105) H 11/09/18 04:15 POC Glucose 102 MG/DL (70 - 105) 11/09/18 11:58 Whole Bld Lactic Acid 1.35 mmol/L (0.60-1.99) 11/06/18 12:00 Uric Acid 1.6 mg/dL (4.4-7.6) L 11/07/18 05:00 Calcium 8.3 mg/dL (8.6-10.3) L 11/09/18 04:15 Magnesium 2.0 mg/dL (1.9-2.7) 11/08/18 04:50 Total Bilirubin 0.4 mg/dL (0.3-1.0) 11/09/18 04:15 AST 87 U/L (13-39) H 11/09/18 04:15 ALT 73 U/L (7-52) H 11/09/18 04:15 Alkaline Phosphatase 25 U/L (34-104) L 11/09/18 04:15 Lactate Dehydrogenase 119 U/L (140-271) L 11/06/18 18:32 Creatine Kinase 233 U/L (30-223) H 11/06/18 18:32 CK-MB (CK-2) 4.6 ng/mL (0.6-6.3) 11/06/18 18:32 Troponin I 0.03 ng/mL (0.01-0.05) 11/06/18 09:40 Total Protein 5.2 gm/dL (6.0-8.3) L 11/09/18 04:15 Albumin 2.6 gm/dL (4.2-5.5) L 11/09/18 04:15 Globulin 2.6 gm/dL 11/09/18 04:15 Albumin/Globulin Ratio 1.0 (1.0-1.8) 11/09/18 04:15 TSH 1.14 uIU/ml (0.34-5.60) 11/06/18 09:40 Urine Source CLEAN C 11/08/18 14:22 Urine Color YELLOW 11/08/18 14:22 Urine Clarity CLEAR (CLEAR) 11/08/18 14:22 Urine pH 6.5 (4.6 - 8.0) 11/08/18 14:22 Ur Specific [place] 1.020 (1.005-1.030) 11/08/18 14:22 Urine Protein TRACE mg/dL (NEGATIVE) 11/08/18 14:22 Urine Glucose (UA) >=1000 mg/dL (NEGATIVE) H 11/08/18 14:22 Urine Ketones NEGATIVE mg/dL (NEGATIVE) 11/08/18 14:22 Urine Blood SMALL (NEGATIVE) H 11/08/18 14:22 Urine Nitrate NEGATIVE (NEGATIVE) 11/08/18 14:22 Urine Bilirubin NEGATIVE (NEGATIVE) 11/08/18 14:22 Urine Urobilinogen 0.2 E.U./dL (0.2 - 1.0) 11/08/18 14:22 Ur Leukocyte Esterase NEGATIVE (NEGATIVE) 11/08/18 14:22 Urine RBC 0-2 /hpf (0-5) H 11/08/18 14:22 Urine WBC 0-2 /hpf (0-5) 11/08/18 14:22 Ur Epithelial Cells NONE SEEN /lpf (FEW) 11/08/18 14:22 Amorphous Sediment FEW URATES (NONE SEEN) 11/08/18 14:22 Urine Bacteria NONE SEEN /hpf (NONE SEEN) 11/08/18 14:22 Ur Random Sodium 32 mmol/L 11/07/18 10:00 Stool Occult Blood NEGATIVE (NEGATIVE) 11/08/18 17:50 Vancomycin Trough 11.2 ug/mL (5-10) H 11/09/18 08:00 Urine Opiates Screen NEGATIVE (NEGATIVE) 11/06/18 10:22 Urine Methadone Screen NEGATIVE (NEGATIVE) 11/06/18 10:22 Ur Barbiturates Screen NEGATIVE (NEGATIVE) 11/06/18 10:22 Ur Tricyclics Screen NEGATIVE (NEGATIVE) 11/06/18 10:22 Ur Phencyclidine Scrn NEGATIVE (NEGATIVE) 11/06/18 10:22 Amphetamines Screen NEGATIVE (NEGATIVE) 11/06/18 10:22 U Methamphetamines Scrn NEGATIVE (NEGATIVE) 11/06/18 10:22 U Benzodiazepines Scrn NEGATIVE (NEGATIVE) 11/06/18 10:22 U Cocaine Metab Screen POSITIVE (NEGATIVE) H 11/06/18 10:22 U Cannabinoids Screen POSITIVE (NEGATIVE) H 11/06/18 10:22 Hepatitis A IgM Ab Negative (Negative) 11/06/18 12:00 Hep Bs Antigen Negative (Negative) 11/06/18 12:00 Hep B Core IgM Ab Negative (Negative) 11/06/18 12:00 Hepatitis C Antibody <0.1 s/co ratio (0.0-0.9) 11/06/18 12:00 HIV 1&2 Antibody Screen NEGATIVE (NEG) 11/06/18 10:22 Influenza A (Rapid) NEG FOR INF A 11/08/18 13:00 Influenza B (Rapid) NEG FOR INF B 11/08/18 13:00 - Physical Exam Vitals and I&O: Vital Signs Temp 98.5 F 11/09/18 08:00 Pulse 83 11/09/18 11:02 Resp 27 11/09/18 11:02 BP 121/75 11/09/18 11:00 Pulse Ox 96 11/09/18 11:02 Intake & Output 11/08/18 11/09/18 11/09/18 18:59 06:59 18:59 Intake Total 4101.667 3540 1000 Output Total 3 1700 Balance 4098.667 1840 1000 Weight (lbs) 62.732 kg 62.823 kg Intake: Intake, IV Amount 1240.854 4114 1000 D5-0.9%Ns 1,000 ml @ 100 381.350 735 0253 mls/hr IV .Q10H [facility] Rx#: [id number] Fluconazole 400mg/200mL 200 400 mg In 200 ml @ 100 mls/hr IV Q24HR [facility] Rx#: [id number] Levofloxacin 750mg/150mL 150 750 mg In 150 ml @ 100 mls/hr IV Q24HR [facility] Rx#: [id number] Meropenem 2 gm In Sodium 100 200 Chloride 0.9% 100 ml @ 100 mls/hr IV Q8HR@0300, 1100,1900 [facility] Rx#: [id number] Sulfamethoxazole/TMP 20 520 1040 ml In Dextrose 5% 500 ml @ 346.667 mls/hr IV Q8H [facility] Rx#:[id number] Vancomycin HCl 1 gm In 500 250 Sodium Chloride 0.9% 250 ml @ 165 mls/hr IV Q8HR@ 0100,0900,1700 [facility] Rx#: [id number] Oral 2400 1300 Output: Urine 1700 Stool 3 Other: # Voids 5 4 # Bowel Movements 0 Stool Characteristics Soft Brown Weight Source Bedscale Bedscale Active Medications: Current Medications Acetaminophen (Tylenol) 650 mg PO Q4H PRN PRN Reason: Pain Or Fever above 101 Stop: 01/05/19 12:37 Last Admin: 11/08/18 16:37 Dose: 650 mg Al Hydrox/Mg Hydrox/Simethicone (Maalox) 30 ml PO Q6H PRN PRN Reason: Dyspepsia Stop: 01/05/19 12:37 Albuterol Sulfate (Albuterol 2.5mg/3ml Neb Ud) 2.5 mg HHN QIDRT [facility] Stop: 01/05/19 14:59 Last Admin: 11/09/18 10:55 Dose: 2.5 mg Alprazolam (Xanax) 0.25 mg PO Q8HR PRN; Protocol PRN Reason: Anxiety Stop: 01/05/19 20:19 Last Admin: 11/09/18 00:18 Dose: 0.25 mg Dextrose (D50w) 50 ml IVP PRN PRN PRN Reason: Blood Glucose less than 70 Stop: 01/06/19 14:23 Dextrose (Glutose 40%) 18.75 gm PO PRN PRN PRN Reason: Blood Glucose less than 70 Stop: 01/06/19 14:23 Filgrastim (Neupogen) 480 mcg SUBQ DAILY [facility] Stop: 01/05/19 18:44 Last Admin: 11/08/18 09:21 Dose: 480 mcg Glucagon (Glucagen) 1 mg IM PRN PRN PRN Reason: Blood Glucose less than 70 Stop: 01/06/19 14:23 Guaifenesin (Robitussin) 200 mg PO Q4HR PRN PRN Reason: Cough or Congestion Stop: 01/05/19 12:37 Fluconazole/Sodium Chloride (Diflucan) 400 mg in 200 mls @ 100 mls/hr IV Q24HR [facility] Stop: 01/05/19 13:59 Last Infusion: 11/08/18 18:19 Dose: Infused Trimethoprim/Sulfamethoxazole (20 ml/ Dextrose) 520 mls @ 346.667 mls/hr IV Q8H [facility] Stop: 01/05/19 18:29 Last Admin: 11/09/18 12:02 Dose: 345 mls/hr Levofloxacin (Levaquin Pb) 750 mg in 150 mls @ 100 mls/hr IV Q24HR [facility] Stop: 11/12/18 20:29 Last Infusion: 11/08/18 20:40 Dose: Infused Meropenem 2 gm/ Sodium (Chloride) 100 mls @ 100 mls/hr IV Q8HR@0300,1100,1900 [facility] Stop: 01/05/19 20:59 Last Admin: 11/09/18 10:42 Dose: 100 mls/hr Potassium Chloride/Dextrose/Sod Cl (D5-0.9ns W/Kcl 20meq) 1,000 mls @ 75 mls/ hr IV .[id number] [facility] Stop: 01/08/19 12:29 Ibuprofen (Motrin) 800 mg PO TID PRN PRN Reason: Pain (Moderate) Stop: 01/06/19 20:59 Ipratropium [place] (Atrovent Neb 0.5mg/2.5ml) 0.5 mg IH QIDRT [facility] Stop: 01/05/19 14:59 Last Admin: 11/09/18 10:55 Dose: 0.5 mg Lactobacillus Rhamnosus (Culturelle 15b) 1 each PO BID [facility] Stop: 01/07/19 16:59 Last Admin: 11/09/18 08:59 Dose: 1 each Methylprednisolone Sodium Succinate (Solu-Medrol) 40 mg IVP Q12HR [facility] Stop: 01/08/19 20:59 Morphine Sulfate (Morphine) 2 mg IVP Q4H PRN PRN Reason: Pain (Severe) Stop: 01/05/19 12:37 Last Admin: 11/08/18 03:53 Dose: 2 mg Ondansetron HCl (Zofran) 4 mg IV Q8H PRN PRN Reason: Nausea / Vomiting Stop: 01/05/19 12:37 Last Admin: 11/08/18 02:05 Dose: 4 mg Pantoprazole Sodium (Protonix) 40 mg PO QDAC [facility] Stop: 01/05/19 16:29 Last Admin: 11/09/18 06:34 Dose: 40 mg Potassium Chloride (Klor-Con) 40 meq PO X1 [facility] Stop: 11/09/18 12:19 Tramadol HCl (Ultram) 50 mg PO Q6HR PRN PRN Reason: Pain (Severe) Stop: 01/05/19 20:17 Last Admin: 11/08/18 18:25 Dose: 50 mg Zolpidem Tartrate (Ambien) 10 mg PO HS PRN PRN Reason: Insomnia Stop: 01/05/19 12:37 Last Admin: 11/08/18 20:17 Dose: 10 mg General: alert HEENT: NC/AT, PERRLA, EOMI Neck: Supple Lungs: rales, ronchi Cardiovascular: RRR, Normal S1, Normal S2, tachy Abdomen: soft, tender, positive bowel sound Extremities: excoriation Neurological: no change Internal Medicine Assmt/Plan - Assessment Assessment: ASSESSMENT AND PLAN: 1. Sepsis, atypical pneumonia, generalized rash. 2. Substance abuse, hyponatremia, tachycardia. pulm infiltrates tachycardia lbp leukopenia - Plan Plan: The patient had a CT chest, which showed ill-defined multilobar infiltrates throughout the lung could be inflammatory in nature. We will empirically start the patient on broad-spectrum antibiotic, vancomycin, Zosyn, as well as Diflucan. We will send for HIV as well as hepatitis panel. We will refer the patient to Pulmonary and Infectious Disease as well as Renal. Continue on aggressive IV hydration. Case was discussed with the patient and mother as well as his sisters and nurse and sister's fiance. The patient prognosis is guarded. The patient to remain in ICU. We will continue monitoring the patient closely. The patient is a full code. dw family members at bedside and w dr jeronimo and sherita will do 2d echo Nutritional Asmnt/Malnutr-PDOC - Dietary Evaluation Malnutrition Findings (Please click <Entered> for more info): Nutritional Asmnt/Malnutrition Start: 11/07/18 10: 55 Text: Status: Complete Freq: Protocol: Document 11/07/18 10:55 DANAE (Rec: 11/07/18 11:13 DANAE [email or web address]- [id number]) Nutritional Asmnt/Malnutrition Patient General Information Nutritional Screening High Risk Diagnosis Respiratory Failure, dehydration Pertinent Medical Hx/Surgical Hx None Subjective Information Per H&P, patient positive for cocaine and marijuana. Spoke with patient's sister, who states he has a sore throat and prefers to eat cold foods right now. She also states he eats "kid foods", and likes snack foods. Current Diet Order/ Nutrition Support Regular Patient / S.O Not Indicated Pertinent Medications maalox, solu-medrol, abx, zofran, protonix Pertinent Labs (11/07) Na 126 (improved), glucose 277, Ca 8.2, albumin 2 .7 Nutritional Hx/Data Height 1.78 m Height (Calculated Centimeters) 177.8 Current Weight (lbs) 61.235 kg Weight (Calculated Kilograms) 61.2 Weight (Calculated Grams) 09785.0 [place] Body Weight 166 % [place] Body Weight 81 Body Mass Index (BMI) 19.3 Recent Weight Change No Weight Status Approriate GI Symptoms GI Symptoms None Last BM 11/06 x 2 Difficult in: None Food Allergies No Cultural/Ethnic/Sabianism Belief none indicated Usual diet at home Regular Skin Integrity/Comment: Cuco 16, Intact Current %PO Negligible < 25% Estimated Nutritional Goals BEE in Kcals: Using Current wt Calories/Kcals/Kg 61.3kg CBW 30-35 kcal/kg Kcals Calculated ~3359-5973 kcal/day Protein: Using Current wt Protein g/k.2-1.5 gm/kg Protein Calculated ~75-90 gm/day Fluid: ml ~7221-2336 ml/day (1 ml/kcal) Nutritional Problem 1. Problem Problem Inadequate oral intake realted to Etiology possible poor appetite aeb Signs/Symptoms: PO <25% of meals, 81% IBW Intervention/Recommendation Comments 1. Continue regular diet as tolerated by patient. 2. If patient remains hyperglycemic (on Solu-medrol) consider modifying to 60 gm CCHO diet at that time. 3. Encourage oral intake of meals and snacks. 4. Start Ensure Enlive TID with meals Expected Outcomes/Goals Expected Outcomes/Goals PO intake to meet >75% of nutritional needs, weight stability or trend toward ideal body weight, skin intact , nutrition related labs to approach WNL. F/U MR 11/10-
[2018-11-09] MEDS: D5-0.9NS w/KCL 20mEq 1,000 ML IV SCH (13:51)
--- NOTE | 2018-11-09 16:30 | Progress Notes ---
DATE: 11/08/2018 PULMONARY PROGRESS NOTE SUBJECTIVE: The patient feels better and less pain and less congestion. 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 OBJECTIVE: VITAL SIGNS: Temperature 98.4, pulse ____, respirations 15, blood pressure 107/87, saturation 99%. HEENT: Atraumatic, normocephalic. Pupils react to light and accommodation. CHEST: Good breath sounds, decreased rhonchi. HEART: Regular rate and rhythm. ABDOMEN: Soft. EXTREMITIES: No edema. LABORATORY DATA: Chest x-ray, infiltrates in the right base. CTA, no acute PE. WBC 6.5, hemoglobin 11.6. Sodium 132, potassium 3.3, BUN is 40, creatinine 0.7. IMPRESSION: 1. Respiratory failure. 2. Pneumonia. 3. 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 4. Leukopenia, etiology to be determined, possible pneumonia ____ other factors. 5. Polysubstance use. 6. Continued drug use. 7. Leukopenia. PLAN: 1. Continue nebulizer. 2. Antibiotics. 3. Followup chest x-ray. 4. Discussed with family at bedside.. JOB# [id number]
--- NOTE | 2018-11-09 16:36 | General Progress Note ---
Subjective - Review of Systems Service Date: 11/09/18 Subjective: started eating, weak, occ cough Objective - Results Result Diagrams: 11/09/18 04:15 11/09/18 04:15 Recent Labs: Laboratory Last Values WBC 1.0 Th/cmm (4.8-10.8) L* 11/09/18 04:15 RBC 3.82 Mil/cmm (4.30-5.70) L 11/09/18 04:15 Hgb 11.2 gm/dL (12-16) L 11/09/18 04:15 Hct 33.2 % (41.0-60) L 11/09/18 04:15 MCV 86.8 fl (80-99) 11/09/18 04:15 MCH 29.2 pg (26.0-30.0) 11/09/18 04:15 MCHC Differential 33.7 pg (28.0-36.0) 11/09/18 04:15 RDW 12.5 % (11.5-20.0) 11/09/18 04:15 Plt Count 158 Th/cmm (150-400) 11/09/18 04:15 MPV 8.0 fl 11/09/18 04:15 Add Manual Diff YES 11/09/18 04:15 Band Neutrophils % 0 % (0-10) 11/08/18 04:50 Neutrophils (Manual) 2 % (40-80) L 11/08/18 04:50 Lymphocytes 66 % (20-50) H 11/08/18 04:50 Monocytes 32 % (2-10) H 11/08/18 04:50 Eosinophils 0 % (0-5) 11/08/18 04:50 Basophils 0 % (0-3) 11/08/18 04:50 Platelet Estimate ADEQUATE (NORMAL) 11/08/18 04:50 Plt Count 158 Th/cmm (150-750) 11/09/18 04:15 PT 9.5 SECONDS (9.5-11.5) 11/09/18 04:15 INR 0.91 (0.5-1.4) 11/09/18 04:15 PTT (Actin FS) 41.9 SECONDS (26.0-38.0) H 11/09/18 04:15 Fibrinogen 500.0 mg/dL (200.0-400.0) H 11/08/18 04:50 D-Dimer 2720 ng/mL (100-400) H 11/09/18 04:15 Lupus Anticoag aPTT 59.7 sec (0.0-51.9) H 11/06/18 12:00 dRVVT Screen 79.3 sec (0.0-47.0) H 11/06/18 12:00 dRVVT Confirm Seconds 1.7 ratio (0.8-1.2) H 11/06/18 12:00 dRVVT Mix 57.1 sec (0.0-47.0) H 11/06/18 12:00 dRVVT 50:50 58.1 sec (0.0-48.9) H 11/06/18 12:00 Hexagonal Phospholipid 19 sec (0-11) H 11/06/18 12:00 Lupus Anticoag Interp Comment: 11/06/18 12:00 Specimen Source Arterial 11/07/18 07:39 Sample Site Right Radial 11/07/18 07:39 pH 7.498 (7.35-7.45) H 11/07/18 07:39 pCO2 23.3 mmHg (35.0-45.0) L* 11/07/18 07:39 pO2 174.3 mmHg (80.0-100.0) H 11/07/18 07:39 HCO3 17.7 mEq/L (20.0-26.0) L 11/07/18 07:39 Base Excess -3.4 mEq/L (-3.0-3.0) L 11/07/18 07:39 O2 Saturation 99.3 % (92.0-100.0) 11/07/18 07:39 Shiv Test Positive 11/07/18 07:39 Vent Rate NA 11/07/18 07:39 Inspired O2 32 11/07/18 07:39 Tidal Volume NA 11/07/18 07:39 PEEP NA 11/07/18 07:39 Pressure (ins/psv/peep) NA 11/07/18 07:39 Critical Value JG 11/07/18 07:39 Sodium 133 mEq/L (136-145) L 11/09/18 04:15 Potassium 3.1 mEq/L (3.5-5.1) L 11/09/18 04:15 Chloride 101 mEq/L (98-107) 11/09/18 04:15 Carbon Dioxide 22.4 mEq/L (21.0-31.0) 11/09/18 04:15 Anion Gap 12.7 (7.0-16.0) 11/09/18 04:15 BUN 16 mg/dL (7-25) 11/09/18 04:15 Creatinine 0.7 mg/dL (0.7-1.3) 11/09/18 04:15 Est GFR ( Amer) > 60.0 ml/min (>90) 11/09/18 04:15 Est GFR (Non-Af Amer) > 60.0 ml/min 11/09/18 04:15 BUN/Creatinine Ratio 22.9 11/09/18 04:15 Glucose 128 mg/dL (70-105) H 11/09/18 04:15 POC Glucose 102 MG/DL (70 - 105) 11/09/18 11:58 Whole Bld Lactic Acid 1.35 mmol/L (0.60-1.99) 11/06/18 12:00 Uric Acid 1.6 mg/dL (4.4-7.6) L 11/07/18 05:00 Calcium 8.3 mg/dL (8.6-10.3) L 11/09/18 04:15 Magnesium 2.0 mg/dL (1.9-2.7) 11/08/18 04:50 Total Bilirubin 0.4 mg/dL (0.3-1.0) 11/09/18 04:15 AST 87 U/L (13-39) H 11/09/18 04:15 ALT 73 U/L (7-52) H 11/09/18 04:15 Alkaline Phosphatase 25 U/L (34-104) L 11/09/18 04:15 Lactate Dehydrogenase 119 U/L (140-271) L 11/06/18 18:32 Creatine Kinase 233 U/L (30-223) H 11/06/18 18:32 CK-MB (CK-2) 4.6 ng/mL (0.6-6.3) 11/06/18 18:32 Troponin I 0.03 ng/mL (0.01-0.05) 11/06/18 09:40 Total Protein 5.2 gm/dL (6.0-8.3) L 11/09/18 04:15 Albumin 2.6 gm/dL (4.2-5.5) L 11/09/18 04:15 Globulin 2.6 gm/dL 11/09/18 04:15 Albumin/Globulin Ratio 1.0 (1.0-1.8) 11/09/18 04:15 TSH 1.14 uIU/ml (0.34-5.60) 11/06/18 09:40 Urine Source CLEAN C 11/08/18 14:22 Urine Color YELLOW 11/08/18 14:22 Urine Clarity CLEAR (CLEAR) 11/08/18 14:22 Urine pH 6.5 (4.6 - 8.0) 11/08/18 14:22 Ur Specific [place] 1.020 (1.005-1.030) 11/08/18 14:22 Urine Protein TRACE mg/dL (NEGATIVE) 11/08/18 14:22 Urine Glucose (UA) >=1000 mg/dL (NEGATIVE) H 11/08/18 14:22 Urine Ketones NEGATIVE mg/dL (NEGATIVE) 11/08/18 14:22 Urine Blood SMALL (NEGATIVE) H 11/08/18 14:22 Urine Nitrate NEGATIVE (NEGATIVE) 11/08/18 14:22 Urine Bilirubin NEGATIVE (NEGATIVE) 11/08/18 14:22 Urine Urobilinogen 0.2 E.U./dL (0.2 - 1.0) 11/08/18 14:22 Ur Leukocyte Esterase NEGATIVE (NEGATIVE) 11/08/18 14:22 Urine RBC 0-2 /hpf (0-5) H 11/08/18 14:22 Urine WBC 0-2 /hpf (0-5) 11/08/18 14:22 Ur Epithelial Cells NONE SEEN /lpf (FEW) 11/08/18 14:22 Amorphous Sediment FEW URATES (NONE SEEN) 11/08/18 14:22 Urine Bacteria NONE SEEN /hpf (NONE SEEN) 11/08/18 14:22 Ur Random Sodium 32 mmol/L 11/07/18 10:00 Stool Occult Blood NEGATIVE (NEGATIVE) 11/08/18 17:50 Vancomycin Trough 11.2 ug/mL (5-10) H 11/09/18 08:00 Urine Opiates Screen NEGATIVE (NEGATIVE) 11/06/18 10:22 Urine Methadone Screen NEGATIVE (NEGATIVE) 11/06/18 10:22 Ur Barbiturates Screen NEGATIVE (NEGATIVE) 11/06/18 10:22 Ur Tricyclics Screen NEGATIVE (NEGATIVE) 11/06/18 10:22 Ur Phencyclidine Scrn NEGATIVE (NEGATIVE) 11/06/18 10:22 Amphetamines Screen NEGATIVE (NEGATIVE) 11/06/18 10:22 U Methamphetamines Scrn NEGATIVE (NEGATIVE) 11/06/18 10:22 U Benzodiazepines Scrn NEGATIVE (NEGATIVE) 11/06/18 10:22 U Cocaine Metab Screen POSITIVE (NEGATIVE) H 11/06/18 10:22 U Cannabinoids Screen POSITIVE (NEGATIVE) H 11/06/18 10:22 Hepatitis A IgM Ab Negative (Negative) 11/06/18 12:00 Hep Bs Antigen Negative (Negative) 11/06/18 12:00 Hep B Core IgM Ab Negative (Negative) 11/06/18 12:00 Hepatitis C Antibody <0.1 s/co ratio (0.0-0.9) 11/06/18 12:00 HIV 1&2 Antibody Screen NEGATIVE (NEG) 11/06/18 10:22 Influenza A (Rapid) NEG FOR INF A 11/08/18 13:00 Influenza B (Rapid) NEG FOR INF B 11/08/18 13:00 - Physical Exam Vitals and I&O: Vital Signs Temp 98.5 F 11/09/18 08:00 Pulse 105 11/09/18 14:35 Resp 27 11/09/18 14:35 BP 121/75 11/09/18 11:00 Pulse Ox 97 11/09/18 14:35 Intake & Output 11/08/18 11/09/18 11/09/18 18:59 06:59 18:59 Intake Total 4101.667 3540 1969 Output Total 3 1700 Balance 4098.667 1840 1969 Weight (lbs) 62.732 kg 62.823 kg Intake: Intake, IV Amount 0270.542 0605 1969 D5-0.9%Ns 1,000 ml @ 100 381.264 033 3566 mls/hr IV .Q10H [facility] Rx#: [id number] Fluconazole 400mg/200mL 200 400 mg In 200 ml @ 100 mls/hr IV Q24HR [facility] Rx#: [id number] Levofloxacin 750mg/150mL 150 750 mg In 150 ml @ 100 mls/hr IV Q24HR [facility] Rx#: [id number] Meropenem 2 gm In Sodium 100 200 100 Chloride 0.9% 100 ml @ 100 mls/hr IV Q8HR@0300, 1100,1900 [facility] Rx#: [id number] Piperacillin Sodium/ 100 Tazobact 4.5 gm In Sodium Chloride 0.9% 100 ml @ 100 mls/hr IV Q8HR [facility] Rx #:[id number] Sulfamethoxazole/TMP 20 520 1040 520 ml In Dextrose 5% 500 ml @ 346.667 mls/hr IV Q8H [facility] Rx#:[id number] Vancomycin HCl 1 gm In 500 250 250 Sodium Chloride 0.9% 250 ml @ 165 mls/hr IV Q8HR@ 0100,0900,1700 [facility] Rx#: [id number] Oral 2400 1300 Output: Urine 1700 Stool 3 Other: # Voids 5 4 # Bowel Movements 0 Stool Characteristics Soft Brown Weight Source Bedscale Bedscale Active Medications: Current Medications Acetaminophen (Tylenol) 650 mg PO Q4H PRN PRN Reason: Pain Or Fever above 101 Stop: 01/05/19 12:37 Last Admin: 11/08/18 16:37 Dose: 650 mg Al Hydrox/Mg Hydrox/Simethicone (Maalox) 30 ml PO Q6H PRN PRN Reason: Dyspepsia Stop: 01/05/19 12:37 Albuterol Sulfate (Albuterol 2.5mg/3ml Neb Ud) 2.5 mg HHN QIDRT [facility] Stop: 01/05/19 14:59 Last Admin: 11/09/18 14:35 Dose: 2.5 mg Alprazolam (Xanax) 0.25 mg PO Q8HR PRN; Protocol PRN Reason: Anxiety Stop: 01/05/19 20:19 Last Admin: 11/09/18 16:14 Dose: 0.25 mg Dextrose (D50w) 50 ml IVP PRN PRN PRN Reason: Blood Glucose less than 70 Stop: 01/06/19 14:23 Dextrose (Glutose 40%) 18.75 gm PO PRN PRN PRN Reason: Blood Glucose less than 70 Stop: 01/06/19 14:23 Filgrastim (Neupogen) 480 mcg SUBQ DAILY [facility] Stop: 01/05/19 18:44 Last Admin: 11/09/18 13:51 Dose: 480 mcg Glucagon (Glucagen) 1 mg IM PRN PRN PRN Reason: Blood Glucose less than 70 Stop: 01/06/19 14:23 Guaifenesin (Robitussin) 200 mg PO Q4HR PRN PRN Reason: Cough or Congestion Stop: 01/05/19 12:37 Trimethoprim/Sulfamethoxazole (20 ml/ Dextrose) 520 mls @ 346.667 mls/hr IV Q8H [facility] Stop: 01/05/19 18:29 Last Infusion: 11/09/18 13:40 Dose: Infused Levofloxacin (Levaquin Pb) 750 mg in 150 mls @ 100 mls/hr IV Q24HR [facility] Stop: 11/12/18 20:29 Last Infusion: 11/08/18 20:40 Dose: Infused Potassium Chloride/Dextrose/Sod Cl (D5-0.9ns W/Kcl 20meq) 1,000 mls @ 75 mls/ hr IV .[id number] [facility] Stop: 01/08/19 12:59 Last Admin: 11/09/18 13:51 Dose: 75 mls/hr Piperacillin Sod/Tazobactam (Sod 4.5 gm/ Sodium Chloride) 100 mls @ 100 mls/hr IV Q8HR [facility] Stop: 01/08/19 12:59 Last Infusion: 11/09/18 14:50 Dose: Infused Ibuprofen (Motrin) 800 mg PO TID PRN PRN Reason: Pain (Moderate) Stop: 01/06/19 20:59 Ipratropium [place] (Atrovent Neb 0.5mg/2.5ml) 0.5 mg IH QIDRT [facility] Stop: 01/05/19 14:59 Last Admin: 11/09/18 14:35 Dose: 0.5 mg Lactobacillus Rhamnosus (Culturelle 15b) 1 each PO BID [facility] Stop: 01/07/19 16:59 Last Admin: 11/09/18 16:14 Dose: 1 each Methylprednisolone Sodium Succinate (Solu-Medrol) 40 mg IVP Q12HR [facility] Stop: 01/08/19 20:59 Morphine Sulfate (Morphine) 2 mg IVP Q4H PRN PRN Reason: Pain (Severe) Stop: 01/05/19 12:37 Last Admin: 11/08/18 03:53 Dose: 2 mg Ondansetron HCl (Zofran) 4 mg IV Q8H PRN PRN Reason: Nausea / Vomiting Stop: 01/05/19 12:37 Last Admin: 11/08/18 02:05 Dose: 4 mg Pantoprazole Sodium (Protonix) 40 mg PO QDAC [facility] Stop: 01/05/19 16:29 Last Admin: 11/09/18 06:34 Dose: 40 mg Tramadol HCl (Ultram) 50 mg PO Q6HR PRN PRN Reason: Pain (Severe) Stop: 01/05/19 20:17 Last Admin: 11/08/18 18:25 Dose: 50 mg Zolpidem Tartrate (Ambien) 10 mg PO HS PRN PRN Reason: Insomnia Stop: 01/05/19 12:37 Last Admin: 11/08/18 20:17 Dose: 10 mg General: Alert, No acute distress HEENT: Atraumatic, Mucous membr. 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 Severe dehydration Severe Sepsis 2/2 UTI, ?CAP Resp Alkalosis Multi focal Infiltrates - Plan Plan: Lab - Result Diagrams 11/07/18 05:00 11/07/18 05:00 Current Medications Acetaminophen (Tylenol) 650 mg PO Q4H PRN PRN Reason: Pain Or Fever above 101 Stop: 01/05/19 12:37 Last Admin: 11/06/18 21:46 Dose: 650 mg Al Hydrox/Mg Hydrox/Simethicone (Maalox) 30 ml PO Q6H PRN PRN Reason: Dyspepsia Stop: 01/05/19 12:37 Albuterol Sulfate (Albuterol 2.5mg/3ml Neb Ud) 2.5 mg HHN QIDRT [facility] Stop: 01/05/19 14:59 Last Admin: 11/07/18 10:09 Dose: 2.5 mg Alprazolam (Xanax) 0.25 mg PO Q8HR PRN; Protocol PRN Reason: Anxiety Stop: 01/05/19 20:19 Last Admin: 11/06/18 21:47 Dose: 0.25 mg Filgrastim (Neupogen) 480 mcg SUBQ DAILY [facility] Stop: 01/05/19 18:44 Last Admin: 11/07/18 13:29 Dose: 480 mcg Guaifenesin (Robitussin) 200 mg PO Q4HR PRN PRN Reason: Cough or Congestion Stop: 01/05/19 12:37 Heparin Sodium (Porcine) (Heparin) 5,000 units SUBQ Q12HR [facility] Stop: 01/05/19 20:59 Last Admin: 11/07/18 10:16 Dose: 5,000 units Dextrose/Sodium Chloride (D5-0.9%Ns) 1,000 mls @ 125 mls/hr IV .Q8H [facility] Stop: 01/05/19 12:44 Last Admin: 11/07/18 04:45 Dose: 125 mls/hr Fluconazole/Sodium Chloride (Diflucan) 400 mg in 200 mls @ 100 mls/hr IV Q24HR [facility] Stop: 01/05/19 13:59 Last Infusion: 11/06/18 16:15 Dose: Infused Vancomycin HCl 1 gm/ Sodium (Chloride) 250 mls @ 166.667 mls/hr IV Q6H [facility] Stop: 01/05/19 14:59 Last Admin: 11/07/18 08:50 Dose: 165 mls/hr Trimethoprim/Sulfamethoxazole (20 ml/ Dextrose) 520 mls @ 346.667 mls/hr IV Q8H [facility] Stop: 01/05/19 18:29 Last Admin: 11/07/18 10:15 Dose: 346 mls/hr Levofloxacin (Levaquin Pb) 750 mg in 150 mls @ 100 mls/hr IV Q24HR [facility] Stop: 11/12/18 20:29 Last Infusion: 11/06/18 21:25 Dose: Infused Meropenem 2 gm/ Sodium (Chloride) 100 mls @ 100 mls/hr IV Q8HR@0300,1100,1900 [facility] Stop: 01/05/19 20:59 Last Admin: 11/07/18 13:27 Dose: 100 mls/hr Ipratropium [place] (Atrovent Neb 0.5mg/2.5ml) 0.5 mg IH QIDRT [facility] Stop: 01/05/19 14:59 Last Admin: 11/07/18 10:09 Dose: 0.5 mg Methylprednisolone Sodium Succinate (Solu-Medrol) 80 mg IVP Q8HR [facility] Stop: 01/05/19 12:59 Last Admin: 11/07/18 13:27 Dose: 80 mg Miscellaneous (Vancomycin Iv Per Pharmacy) 1 ea MC PRN PRN PRN Reason: VANCOMYCIN IV PER RX Stop: 01/05/19 13:19 Morphine Sulfate (Morphine) 2 mg IVP Q4H PRN PRN Reason: Pain (Severe) Stop: 01/05/19 12:37 Last Admin: 11/07/18 04:45 Dose: 2 mg Ondansetron HCl (Zofran) 4 mg IV Q8H PRN PRN Reason: Nausea / Vomiting Stop: 01/05/19 12:37 Pantoprazole Sodium (Protonix) 40 mg PO QDAC [facility] Stop: 01/05/19 16:29 Last Admin: 11/07/18 06:46 Dose: 40 mg Tramadol HCl (Ultram) 50 mg PO Q6HR PRN PRN Reason: Pain (Moderate) Stop: 01/05/19 20:17 Last Admin: 11/07/18 10:15 Dose: 50 mg Zolpidem Tartrate (Ambien) 10 mg PO HS PRN PRN Reason: Insomnia Stop: 01/05/19 12:37 Lab - Result Diagrams 11/09/18 04:15 11/09/18 04:15 Na up to 133 WBC up to 1 f/u electrolytes, cbc continue IVF replace K discussed w/ family @ bedside Nutritional Asmnt/Malnutr-PDOC - Dietary Evaluation Malnutrition Findings (Please click <Entered> for more info): Nutritional Asmnt/Malnutrition Start: 11/07/18 10: 55 Text: Status: Complete Freq: Protocol: Document 11/07/18 10:55 DANAE (Rec: 11/07/18 11:13 DANAE HARDIN- [id number]) Nutritional Asmnt/Malnutrition Patient General Information Nutritional Screening High Risk Diagnosis Respiratory Failure, dehydration Pertinent Medical Hx/Surgical Hx None Subjective Information Per H&P, patient positive for cocaine and marijuana. Spoke with patient's sister, who states he has a sore throat and prefers to eat cold foods right now. She also states he eats "kid foods", and likes snack foods. Current Diet Order/ Nutrition Support Regular Patient / S.O Not Indicated Pertinent Medications maalox, solu-medrol, abx, zofran, protonix Pertinent Labs (11/07) Na 126 (improved), glucose 277, Ca 8.2, albumin 2 .7 Nutritional Hx/Data Height 1.78 m Height (Calculated Centimeters) 177.8 Current Weight (lbs) 61.235 kg Weight (Calculated Kilograms) 61.2 Weight (Calculated Grams) 01804.0 [place] Body Weight 166 % [place] Body Weight 81 Body Mass Index (BMI) 19.3 Recent Weight Change No Weight Status Approriate GI Symptoms GI Symptoms None Last BM 11/06 x 2 Difficult in: None Food Allergies No Cultural/Ethnic/Shinto Belief none indicated Usual diet at home Regular Skin Integrity/Comment: Cuco 16, Intact Current %PO Negligible < 25% Estimated Nutritional Goals BEE in Kcals: Using Current wt Calories/Kcals/Kg 61.3kg CBW 30-35 kcal/kg Kcals Calculated ~8259-2186 kcal/day Protein: Using Current wt Protein g/k.2-1.5 gm/kg Protein Calculated ~75-90 gm/day Fluid: ml ~8258-6606 ml/day (1 ml/kcal) Nutritional Problem 1. Problem Problem Inadequate oral intake realted to Etiology possible poor appetite aeb Signs/Symptoms: PO <25% of meals, 81% IBW Intervention/Recommendation Comments 1. Continue regular diet as tolerated by patient. 2. If patient remains hyperglycemic (on Solu-medrol) consider modifying to 60 gm CCHO diet at that time. 3. Encourage oral intake of meals and snacks. 4. Start Ensure Enlive TID with meals Expected Outcomes/Goals Expected Outcomes/Goals PO intake to meet >75% of nutritional needs, weight stability or trend toward ideal body weight, skin intact , nutrition related labs to approach WNL. F/U MR 11/10-
[2018-11-09] MEDS: Morphine Sulfate 2 mg/mL 1mL Syr IVP PRN ×2 (17:33→21:51)
[2018-11-09] MEDS: Levofloxacin 750mg/150mL 750 MG/150 ML BAG IV SCH (20:24)
--- NOTE | 2018-11-10 00:27 | Progress Notes ---
DATE: 11/09/2018 PULMONARY PROGRESS NOTE SUBJECTIVE: The patient appears to be doing better. No distress. There is some cough and hiccups. OBJECTIVE: VITAL SIGNS: Temperature 98.9, pulse 90, respiration is 24, blood pressure 98/74, saturation 97%. HEENT: Atraumatic. CHEST: Good breath sounds. No wheezing. Decreased rhonchi. HEART: Regular rate and rhythm. ABDOMEN: Soft. EXTREMITIES: No edema. LABORATORY DATA: WBC is 1.0. Hemoglobin is 9.2, hematocrit 33.2, platelets 158. Sodium is 130, potassium 3.1, BUN is 16, creatinine 0.7. Chest x-ray, decreased infiltrate bilaterally. IMPRESSION: 1. Respiratory failure. 2. Pneumonia. 3. Alcoholism, polysubstance abuse. PLAN: 1. Nebulizer treatment. 2. Antibiotics. 3. Supportive care. 4. Hematology and ID followup. JOB# [id number]
[2018-11-10] MEDS: DEXTROSE IV SCH ×3 (02:59→17:32)
[2018-11-10] MEDS: SULFAMETHOXAZOLE IV SCH ×3 (02:59→17:32)
[2018-11-10] MEDS: TMP IV SCH ×3 (02:59→17:32)
[2018-11-10 05:29] LABS: HEMATOCRIT 33.4 % (41.0-60); HEMOGLOBIN 11.2 gm/dL (12-16); MEAN CELL VOLUME 87.8 fl (80-99); MEAN CORPUSCULAR HEMOGLOBIN 29.6 pg (26.0-30.0); MEAN CORPUSCULAR HGB CONC 33.7 pg (28.0-36.0); PLATELET COUNT 148 Th/cmm (150-400); RED CELL DISTRIBUTION WIDTH 12.4 % (11.5-20.0); WHITE BLOOD COUNT 6.8 Th/cmm (4.8-10.8)
[2018-11-10 05:31] LABS: INR 0.99 (0.5-1.4)
[2018-11-10 05:33] LABS: ALBUMIN 2.4 gm/dL (4.2-5.5); ALKALINE PHOSPHATASE 30 U/L (34-104); ANION GAP 11.9 (7.0-16.0); BILIRUBIN,TOTAL 0.5 mg/dL (0.3-1.0); BUN - UREA NITROGEN 19 mg/dL (7-25); CALCIUM SERUM 7.8 mg/dL (8.6-10.3); CARBON DIOXIDE 22.8 mEq/L (21.0-31.0); CHLORIDE 101 mEq/L (98-107); CREATININE - SERUM 0.7 mg/dL (0.7-1.3); GFR AFRICAN-AMERICAN > 60.0 ml/min (>90); GFR NON AFRICAN-AMERICAN > 60.0 ml/min; GLUCOSE 163 mg/dL (70-105); MAGNESIUM 2.1 mg/dL (1.9-2.7); POTASSIUM SERUM 3.7 mEq/L (3.5-5.1); SGOT 35 U/L (13-39); SGPT/ALT 58 U/L (7-52); SODIUM SERUM 132 mEq/L (136-145); TOTAL PROTEIN,SERUM 4.7 gm/dL (6.0-8.3)
[2018-11-10 06:16] LABS: BAND NEUTROPHILE 31 % (0-10); LYMPHOCYTE 26 % (20-50); METAMYELOCYTE 1 % (0-0); MONOCYTE 13 % (2-10); NEUTROPHILS 29 % (40-80); PLATELET ESTIMATE ADEQUATE (NORMAL)
[2018-11-10] MEDS: Pantoprazole 40 mg EC Tab PO SCH (06:45)
[2018-11-10] MEDS: Ipratropium Neb 0.5 mg/2.5 mL UD IH SCH ×4 (07:13→19:02)
[2018-11-10] MEDS: Albuterol Nebulizer 2.5mg/3mL HHN SCH ×4 (07:13→19:01)
[2018-11-10] MEDS: Lactobacillus Rhamnosus GG 15 Billion CFU CAP.SPRINK PO SCH ×2 (09:25→17:32)
[2018-11-10] MEDS: methylPREDNISolone SS 40 mg Vial IVP SCH ×2 (09:25→21:32)
[2018-11-10] MEDS ORDERED: Escitalopram Oxalate 5 mg Tab PO SCH (12:21)
[2018-11-10] MEDS ORDERED: Morphine Sulfate 2 mg/mL 1mL Syr IVP PRN (12:21)
--- NOTE | 2018-11-10 12:23 | Internal Medicine Prog Note ---
Internal Medicine Subjective - Subjective Patient seen and examined:: with staff, chart reviewed Patient is:: awake, verbal, interactive, in bed Patient Complaints of:: congestion, cough, pain with urination, LBP, headache, chest pain, unable to sleep Per staff patient has:: no adverse event, poor appetite, tolerating meds Internal Medicine Objective - Results Result Diagrams: 11/10/18 04:30 11/10/18 04:30 Recent Labs: Laboratory Last Values WBC 6.8 Th/cmm (4.8-10.8) 11/10/18 04:30 RBC 3.80 Mil/cmm (4.30-5.70) L 11/10/18 04:30 Hgb 11.2 gm/dL (12-16) L 11/10/18 04:30 Hct 33.4 % (41.0-60) L 11/10/18 04:30 MCV 87.8 fl (80-99) 11/10/18 04:30 MCH 29.6 pg (26.0-30.0) 11/10/18 04:30 MCHC Differential 33.7 pg (28.0-36.0) 11/10/18 04:30 RDW 12.4 % (11.5-20.0) 11/10/18 04:30 Plt Count 148 Th/cmm (150-400) L 11/10/18 04:30 MPV 8.3 fl 11/10/18 04:30 Add Manual Diff YES 11/10/18 04:30 Band Neutrophils % 31 % (0-10) H 11/10/18 04:30 Neutrophils (Manual) 29 % (40-80) L 11/10/18 04:30 Lymphocytes 26 % (20-50) 11/10/18 04:30 Monocytes 13 % (2-10) H 11/10/18 04:30 Eosinophils 0 % (0-5) 11/08/18 04:50 Basophils 0 % (0-3) 11/08/18 04:50 Metamyelocytes 1 % (0-0) H 11/10/18 04:30 Platelet Estimate ADEQUATE (NORMAL) 11/10/18 04:30 Smear Path Review YES 11/10/18 04:30 Plt Count 158 Th/cmm (150-750) 11/09/18 04:15 PT 10.3 SECONDS (9.5-11.5) 11/10/18 04:30 INR 0.99 (0.5-1.4) 11/10/18 04:30 PTT (Actin FS) 35.5 SECONDS (26.0-38.0) 11/10/18 04:30 Fibrinogen 500.0 mg/dL (200.0-400.0) H 11/08/18 04:50 D-Dimer 2720 ng/mL (100-400) H 11/09/18 04:15 Lupus Anticoag aPTT 59.7 sec (0.0-51.9) H 11/06/18 12:00 dRVVT Screen 79.3 sec (0.0-47.0) H 11/06/18 12:00 dRVVT Confirm Seconds 1.7 ratio (0.8-1.2) H 11/06/18 12:00 dRVVT Mix 57.1 sec (0.0-47.0) H 11/06/18 12:00 dRVVT 50:50 58.1 sec (0.0-48.9) H 11/06/18 12:00 Hexagonal Phospholipid 19 sec (0-11) H 11/06/18 12:00 Lupus Anticoag Interp Comment: 11/06/18 12:00 Specimen Source Arterial 11/07/18 07:39 Sample Site Right Radial 11/07/18 07:39 pH 7.498 (7.35-7.45) H 11/07/18 07:39 pCO2 23.3 mmHg (35.0-45.0) L* 11/07/18 07:39 pO2 174.3 mmHg (80.0-100.0) H 11/07/18 07:39 HCO3 17.7 mEq/L (20.0-26.0) L 11/07/18 07:39 Base Excess -3.4 mEq/L (-3.0-3.0) L 11/07/18 07:39 O2 Saturation 99.3 % (92.0-100.0) 11/07/18 07:39 Shiv Test Positive 11/07/18 07:39 Vent Rate NA 11/07/18 07:39 Inspired O2 32 11/07/18 07:39 Tidal Volume NA 11/07/18 07:39 PEEP NA 11/07/18 07:39 Pressure (ins/psv/peep) NA 11/07/18 07:39 Critical Value JG 11/07/18 07:39 Sodium 132 mEq/L (136-145) L 11/10/18 04:30 Potassium 3.7 mEq/L (3.5-5.1) 11/10/18 04:30 Chloride 101 mEq/L (98-107) 11/10/18 04:30 Carbon Dioxide 22.8 mEq/L (21.0-31.0) 11/10/18 04:30 Anion Gap 11.9 (7.0-16.0) 11/10/18 04:30 BUN 19 mg/dL (7-25) 11/10/18 04:30 Creatinine 0.7 mg/dL (0.7-1.3) 11/10/18 04:30 Est GFR ( Amer) > 60.0 ml/min (>90) 11/10/18 04:30 Est GFR (Non-Af Amer) > 60.0 ml/min 11/10/18 04:30 BUN/Creatinine Ratio 27.1 11/10/18 04:30 Glucose 163 mg/dL (70-105) H 11/10/18 04:30 POC Glucose 102 MG/DL (70 - 105) 11/09/18 11:58 Whole Bld Lactic Acid 1.35 mmol/L (0.60-1.99) 11/06/18 12:00 Uric Acid 1.6 mg/dL (4.4-7.6) L 11/07/18 05:00 Calcium 7.8 mg/dL (8.6-10.3) L 11/10/18 04:30 Magnesium 2.1 mg/dL (1.9-2.7) 11/10/18 04:30 Total Bilirubin 0.5 mg/dL (0.3-1.0) 11/10/18 04:30 AST 35 U/L (13-39) 11/10/18 04:30 ALT 58 U/L (7-52) H 11/10/18 04:30 Alkaline Phosphatase 30 U/L (34-104) L 11/10/18 04:30 Lactate Dehydrogenase 119 U/L (140-271) L 11/06/18 18:32 Creatine Kinase 233 U/L (30-223) H 11/06/18 18:32 CK-MB (CK-2) 4.6 ng/mL (0.6-6.3) 11/06/18 18:32 Troponin I 0.03 ng/mL (0.01-0.05) 11/06/18 09:40 Total Protein 4.7 gm/dL (6.0-8.3) L 11/10/18 04:30 Albumin 2.4 gm/dL (4.2-5.5) L 11/10/18 04:30 Globulin 2.3 gm/dL 11/10/18 04:30 Albumin/Globulin Ratio 1.0 (1.0-1.8) 11/10/18 04:30 TSH 1.14 uIU/ml (0.34-5.60) 11/06/18 09:40 Urine Source CLEAN C 11/08/18 14:22 Urine Color YELLOW 11/08/18 14:22 Urine Clarity CLEAR (CLEAR) 11/08/18 14:22 Urine pH 6.5 (4.6 - 8.0) 11/08/18 14:22 Ur Specific [place] 1.020 (1.005-1.030) 11/08/18 14:22 Urine Protein TRACE mg/dL (NEGATIVE) 11/08/18 14:22 Urine Glucose (UA) >=1000 mg/dL (NEGATIVE) H 11/08/18 14:22 Urine Ketones NEGATIVE mg/dL (NEGATIVE) 11/08/18 14:22 Urine Blood SMALL (NEGATIVE) H 11/08/18 14:22 Urine Nitrate NEGATIVE (NEGATIVE) 11/08/18 14:22 Urine Bilirubin NEGATIVE (NEGATIVE) 11/08/18 14:22 Urine Urobilinogen 0.2 E.U./dL (0.2 - 1.0) 11/08/18 14:22 Ur Leukocyte Esterase NEGATIVE (NEGATIVE) 11/08/18 14:22 Urine RBC 0-2 /hpf (0-5) H 11/08/18 14:22 Urine WBC 0-2 /hpf (0-5) 11/08/18 14:22 Ur Epithelial Cells NONE SEEN /lpf (FEW) 11/08/18 14:22 Amorphous Sediment FEW URATES (NONE SEEN) 11/08/18 14:22 Urine Bacteria NONE SEEN /hpf (NONE SEEN) 11/08/18 14:22 Ur Random Sodium 32 mmol/L 11/07/18 10:00 Stool Occult Blood NEGATIVE (NEGATIVE) 11/08/18 17:50 Vancomycin Trough 11.2 ug/mL (5-10) H 11/09/18 08:00 Urine Opiates Screen NEGATIVE (NEGATIVE) 11/06/18 10:22 Urine Methadone Screen NEGATIVE (NEGATIVE) 11/06/18 10:22 Ur Barbiturates Screen NEGATIVE (NEGATIVE) 11/06/18 10:22 Ur Tricyclics Screen NEGATIVE (NEGATIVE) 11/06/18 10:22 Ur Phencyclidine Scrn NEGATIVE (NEGATIVE) 11/06/18 10:22 Amphetamines Screen NEGATIVE (NEGATIVE) 11/06/18 10:22 U Methamphetamines Scrn NEGATIVE (NEGATIVE) 11/06/18 10:22 U Benzodiazepines Scrn NEGATIVE (NEGATIVE) 11/06/18 10:22 U Cocaine Metab Screen POSITIVE (NEGATIVE) H 11/06/18 10:22 U Cannabinoids Screen POSITIVE (NEGATIVE) H 11/06/18 10:22 Hepatitis A IgM Ab Negative (Negative) 11/06/18 12:00 Hep Bs Antigen Negative (Negative) 11/06/18 12:00 Hep B Core IgM Ab Negative (Negative) 11/06/18 12:00 Hepatitis C Antibody <0.1 s/co ratio (0.0-0.9) 11/06/18 12:00 HIV 1&2 Antibody Screen NEGATIVE (NEG) 11/06/18 10:22 Influenza A (Rapid) NEG FOR INF A 11/08/18 13:00 Influenza B (Rapid) NEG FOR INF B 11/08/18 13:00 Mycoplasma pneumon IgG <100 U/mL (0-99) 11/07/18 06:50 - Physical Exam Vitals and I&O: Vital Signs Temp 98.5 F 11/10/18 12:00 Pulse 110 11/10/18 12:00 Resp 18 11/10/18 12:00 BP 122/70 11/10/18 12:00 Pulse Ox 92 11/10/18 12:00 Intake & Output 11/09/18 11/10/18 11/10/18 18:59 06:59 18:59 Intake Total 1969 1340 Output Total 1999 Balance 1969 -660 Weight (lbs) 66.497 kg Intake: Intake, IV Amount 1969 1140 D5-0.9%Ns 1,000 ml @ 100 1000 mls/hr IV .Q10H [facility] Rx#: [id number] Meropenem 2 gm In Sodium 100 Chloride 0.9% 100 ml @ 100 mls/hr IV Q8HR@0300, 1100,1900 [facility] Rx#: [id number] Piperacillin Sodium/ 100 100 Tazobact 4.5 gm In Sodium Chloride 0.9% 100 ml @ 100 mls/hr IV Q8HR [facility] Rx #:[id number] Sulfamethoxazole/TMP 20 520 1040 ml In Dextrose 5% 500 ml @ 346.667 mls/hr IV Q8H [facility] Rx#:[id number] Vancomycin HCl 1 gm In 250 Sodium Chloride 0.9% 250 ml @ 165 mls/hr IV Q8HR@ 0100,0900,1700 [facility] Rx#: [id number] Oral 200 Output: Urine 2000 Other: # Bowel Movements 0 Weight Source Patient stated Active Medications: Current Medications Acetaminophen (Tylenol) 650 mg PO Q4H PRN PRN Reason: Pain Or Fever above 101 Stop: 01/05/19 12:37 Last Admin: 11/08/18 16:37 Dose: 650 mg Al Hydrox/Mg Hydrox/Simethicone (Maalox) 30 ml PO Q6H PRN PRN Reason: Dyspepsia Stop: 01/05/19 12:37 Albuterol Sulfate (Albuterol 2.5mg/3ml Neb Ud) 2.5 mg HHN QIDRT [facility] Stop: 01/05/19 14:59 Last Admin: 11/10/18 10:42 Dose: 2.5 mg Alprazolam (Xanax) 0.25 mg PO Q6HR PRN; Protocol PRN Reason: Anxiety Stop: 01/05/19 20:19 Dextrose (D50w) 50 ml IVP PRN PRN PRN Reason: Blood Glucose less than 70 Stop: 01/06/19 14:23 Dextrose (Glutose 40%) 18.75 gm PO PRN PRN PRN Reason: Blood Glucose less than 70 Stop: 01/06/19 14:23 Glucagon (Glucagen) 1 mg IM PRN PRN PRN Reason: Blood Glucose less than 70 Stop: 01/06/19 14:23 Guaifenesin (Robitussin) 200 mg PO Q4HR PRN PRN Reason: Cough or Congestion Stop: 01/05/19 12:37 Last Admin: 11/09/18 23:04 Dose: 200 mg Trimethoprim/Sulfamethoxazole (20 ml/ Dextrose) 520 mls @ 346.667 mls/hr IV Q8H [facility] Stop: 01/05/19 18:29 Last Admin: 11/10/18 10:00 Dose: 347 mls/hr Levofloxacin (Levaquin Pb) 750 mg in 150 mls @ 100 mls/hr IV Q24HR [facility] Stop: 11/12/18 20:29 Last Admin: 11/09/18 20:24 Dose: 100 mls/hr Potassium Chloride/Dextrose/Sod Cl (D5-0.9ns W/Kcl 20meq) 1,000 mls @ 75 mls/ hr IV .[id number] [facility] Stop: 01/08/19 12:59 Last Admin: 11/09/18 13:51 Dose: 75 mls/hr Piperacillin Sod/Tazobactam (Sod 4.5 gm/ Sodium Chloride) 100 mls @ 100 mls/hr IV Q8HR [facility] Stop: 01/08/19 12:59 Last Admin: 11/10/18 04:53 Dose: 100 mls/hr Ibuprofen (Motrin) 800 mg PO TID PRN PRN Reason: Pain (Moderate) Stop: 01/06/19 20:59 Ipratropium Gallion (Atrovent Neb 0.5mg/2.5ml) 0.5 mg IH QIDRT [facility] Stop: 01/05/19 14:59 Last Admin: 11/10/18 10:42 Dose: 0.5 mg Lactobacillus Rhamnosus (Culturelle 15b) 1 each PO BID [facility] Stop: 01/07/19 16:59 Last Admin: 11/10/18 09:25 Dose: 1 each Methylprednisolone Sodium Succinate (Solu-Medrol) 40 mg IVP Q12HR [facility] Stop: 01/08/19 20:59 Last Admin: 11/10/18 09:25 Dose: 40 mg Morphine Sulfate (Morphine) 2 mg IVP Q8H PRN PRN Reason: Pain (Severe) Stop: 01/05/19 12:37 Ondansetron HCl (Zofran) 4 mg IV Q8H PRN PRN Reason: Nausea / Vomiting Stop: 01/05/19 12:37 Last Admin: 11/08/18 02:05 Dose: 4 mg Pantoprazole Sodium (Protonix) 40 mg PO QDAC [place] Stop: 01/05/19 16:29 Last Admin: 11/10/18 06:45 Dose: 40 mg Tramadol HCl (Ultram) 50 mg PO Q6HR PRN PRN Reason: Pain (Severe) Stop: 01/05/19 20:17 Last Admin: 11/08/18 18:25 Dose: 50 mg Zolpidem Tartrate (Ambien) 10 mg PO HS PRN PRN Reason: Insomnia Stop: 01/05/19 12:37 Last Admin: 11/08/18 20:17 Dose: 10 mg General: alert HEENT: NC/AT, PERRLA, EOMI Neck: Supple Lungs: rales, ronchi Cardiovascular: RRR, Normal S1, Normal S2, tachy Abdomen: soft, tender, positive bowel sound Extremities: excoriation Neurological: no change Internal Medicine Assmt/Plan - Assessment Assessment: ASSESSMENT AND PLAN: 1. Sepsis, atypical pneumonia, generalized rash. 2. Substance abuse, hyponatremia, tachycardia. pulm infiltrates tachycardia lbp leukopenia-better - Plan Plan: The patient had a CT chest, which showed ill-defined multilobar infiltrates throughout the lung could be inflammatory in nature. We will empirically start the patient on broad-spectrum antibiotic, vancomycin, Zosyn, as well as Diflucan. We will send for HIV as well as hepatitis panel. We will refer the patient to Pulmonary and Infectious Disease as well as Renal. Continue on aggressive IV hydration. Case was discussed with the patient and mother as well as his sisters and nurse and sister's fiance. The patient prognosis is guarded. The patient to remain in ICU. We will continue monitoring the patient closely. The patient is a full code. dw family members at bedside and w dr jeronimo and sherita will do 2d echo Nutritional Asmnt/Malnutr-PDOC - Dietary Evaluation Malnutrition Findings (Please click <Entered> for more info): Nutritional Asmnt/Malnutrition Start: 11/07/18 10: 55 Text: Status: Complete Freq: Protocol: Document 11/07/18 10:55 DANAE (Rec: 11/07/18 11:13 DANAE HARDIN- [id number]) Nutritional Asmnt/Malnutrition Patient General Information Nutritional Screening High Risk Diagnosis Respiratory Failure, dehydration Pertinent Medical Hx/Surgical Hx None Subjective Information Per H&P, patient positive for cocaine and marijuana. Spoke with patient's sister, who states he has a sore throat and prefers to eat cold foods right now. She also states he eats "kid foods", and likes snack foods. Current Diet Order/ Nutrition Support Regular Patient / S.O Not Indicated Pertinent Medications maalox, solu-medrol, abx, zofran, protonix Pertinent Labs (11/07) Na 126 (improved), glucose 277, Ca 8.2, albumin 2 .7 Nutritional Hx/Data Height 1.78 m Height (Calculated Centimeters) 177.8 Current Weight (lbs) 61.235 kg Weight (Calculated Kilograms) 61.2 Weight (Calculated Grams) 16047.0 [place] Body Weight 166 % [place] Body Weight 81 Body Mass Index (BMI) 19.3 Recent Weight Change No Weight Status Approriate GI Symptoms GI Symptoms None Last BM 11/06 x 2 Difficult in: None Food Allergies No Cultural/Ethnic/Gnosticism Belief none indicated Usual diet at home Regular Skin Integrity/Comment: Cuco 16, Intact Current %PO Negligible < 25% Estimated Nutritional Goals BEE in Kcals: Using Current wt Calories/Kcals/Kg 61.3kg CBW 30-35 kcal/kg Kcals Calculated ~0855-8657 kcal/day Protein: Using Current wt Protein g/k.2-1.5 gm/kg Protein Calculated ~75-90 gm/day Fluid: ml ~3361-4045 ml/day (1 ml/kcal) Nutritional Problem 1. Problem Problem Inadequate oral intake realted to Etiology possible poor appetite aeb Signs/Symptoms: PO <25% of meals, 81% IBW Intervention/Recommendation Comments 1. Continue regular diet as tolerated by patient. 2. If patient remains hyperglycemic (on Solu-medrol) consider modifying to 60 gm CCHO diet at that time. 3. Encourage oral intake of meals and snacks. 4. Start Ensure Enlive TID with meals Expected Outcomes/Goals Expected Outcomes/Goals PO intake to meet >75% of nutritional needs, weight stability or trend toward ideal body weight, skin intact , nutrition related labs to approach WNL. F/U MR 11/10-
[2018-11-10] MEDS ORDERED: Escitalopram Oxalate 5 mg Tab PO ONE (12:40)
[2018-11-10 14:03] LABS: WHITE BLOOD COUNT 0.3 Th/cmm (4.8-10.8)
[2018-11-10 14:27] LABS: BAND NEUTROPHILE 0 % (0-10); BASOPHIL 0 % (0-3); EOSINOPHIL 0 % (0-5); LYMPHOCYTE 34 % (20-50); MONOCYTE 60 % (2-10); NEUTROPHILS 6 % (40-80)
--- NOTE | 2018-11-10 14:29 | Infectious Disease Prog Note ---
Infectious Disease Subjective - Review of Systems Service Date: 11/10/18 Subjective: weak, doing better, Infectious Disease Objective - Results Result Diagrams: 11/10/18 04:30 11/10/18 04:30 Recent Labs: Laboratory Last Values WBC 6.8 Th/cmm (4.8-10.8) 11/10/18 04:30 RBC 3.80 Mil/cmm (4.30-5.70) L 11/10/18 04:30 Hgb 11.2 gm/dL (12-16) L 11/10/18 04:30 Hct 33.4 % (41.0-60) L 11/10/18 04:30 MCV 87.8 fl (80-99) 11/10/18 04:30 MCH 29.6 pg (26.0-30.0) 11/10/18 04:30 MCHC Differential 33.7 pg (28.0-36.0) 11/10/18 04:30 RDW 12.4 % (11.5-20.0) 11/10/18 04:30 Plt Count 148 Th/cmm (150-400) L 11/10/18 04:30 MPV 8.3 fl 11/10/18 04:30 Add Manual Diff YES 11/10/18 04:30 Band Neutrophils % 31 % (0-10) H 11/10/18 04:30 Neutrophils (Manual) 29 % (40-80) L 11/10/18 04:30 Lymphocytes 26 % (20-50) 11/10/18 04:30 Monocytes 13 % (2-10) H 11/10/18 04:30 Eosinophils 0 % (0-5) 11/08/18 04:50 Basophils 0 % (0-3) 11/08/18 04:50 Metamyelocytes 1 % (0-0) H 11/10/18 04:30 Platelet Estimate ADEQUATE (NORMAL) 11/10/18 04:30 Smear Path Review YES 11/10/18 04:30 Plt Count 158 Th/cmm (150-750) 11/09/18 04:15 PT 10.3 SECONDS (9.5-11.5) 11/10/18 04:30 INR 0.99 (0.5-1.4) 11/10/18 04:30 PTT (Actin FS) 35.5 SECONDS (26.0-38.0) 11/10/18 04:30 Fibrinogen 500.0 mg/dL (200.0-400.0) H 11/08/18 04:50 D-Dimer 2720 ng/mL (100-400) H 11/09/18 04:15 Lupus Anticoag aPTT 59.7 sec (0.0-51.9) H 11/06/18 12:00 dRVVT Screen 79.3 sec (0.0-47.0) H 11/06/18 12:00 dRVVT Confirm Seconds 1.7 ratio (0.8-1.2) H 11/06/18 12:00 dRVVT Mix 57.1 sec (0.0-47.0) H 11/06/18 12:00 dRVVT 50:50 58.1 sec (0.0-48.9) H 11/06/18 12:00 Hexagonal Phospholipid 19 sec (0-11) H 11/06/18 12:00 Lupus Anticoag Interp Comment: 11/06/18 12:00 Specimen Source Arterial 11/07/18 07:39 Sample Site Right Radial 11/07/18 07:39 pH 7.498 (7.35-7.45) H 11/07/18 07:39 pCO2 23.3 mmHg (35.0-45.0) L* 11/07/18 07:39 pO2 174.3 mmHg (80.0-100.0) H 11/07/18 07:39 HCO3 17.7 mEq/L (20.0-26.0) L 11/07/18 07:39 Base Excess -3.4 mEq/L (-3.0-3.0) L 11/07/18 07:39 O2 Saturation 99.3 % (92.0-100.0) 11/07/18 07:39 Shiv Test Positive 11/07/18 07:39 Vent Rate NA 11/07/18 07:39 Inspired O2 32 11/07/18 07:39 Tidal Volume NA 11/07/18 07:39 PEEP NA 11/07/18 07:39 Pressure (ins/psv/peep) NA 11/07/18 07:39 Critical Value JG 11/07/18 07:39 Sodium 132 mEq/L (136-145) L 11/10/18 04:30 Potassium 3.7 mEq/L (3.5-5.1) 11/10/18 04:30 Chloride 101 mEq/L (98-107) 11/10/18 04:30 Carbon Dioxide 22.8 mEq/L (21.0-31.0) 11/10/18 04:30 Anion Gap 11.9 (7.0-16.0) 11/10/18 04:30 BUN 19 mg/dL (7-25) 11/10/18 04:30 Creatinine 0.7 mg/dL (0.7-1.3) 11/10/18 04:30 Est GFR ( Amer) > 60.0 ml/min (>90) 11/10/18 04:30 Est GFR (Non-Af Amer) > 60.0 ml/min 11/10/18 04:30 BUN/Creatinine Ratio 27.1 11/10/18 04:30 Glucose 163 mg/dL (70-105) H 11/10/18 04:30 POC Glucose 102 MG/DL (70 - 105) 11/09/18 11:58 Whole Bld Lactic Acid 1.35 mmol/L (0.60-1.99) 11/06/18 12:00 Uric Acid 1.6 mg/dL (4.4-7.6) L 11/07/18 05:00 Calcium 7.8 mg/dL (8.6-10.3) L 11/10/18 04:30 Magnesium 2.1 mg/dL (1.9-2.7) 11/10/18 04:30 Total Bilirubin 0.5 mg/dL (0.3-1.0) 11/10/18 04:30 AST 35 U/L (13-39) 11/10/18 04:30 ALT 58 U/L (7-52) H 11/10/18 04:30 Alkaline Phosphatase 30 U/L (34-104) L 11/10/18 04:30 Lactate Dehydrogenase 119 U/L (140-271) L 11/06/18 18:32 Creatine Kinase 233 U/L (30-223) H 11/06/18 18:32 CK-MB (CK-2) 4.6 ng/mL (0.6-6.3) 11/06/18 18:32 Troponin I 0.03 ng/mL (0.01-0.05) 11/06/18 09:40 Total Protein 4.7 gm/dL (6.0-8.3) L 11/10/18 04:30 Albumin 2.4 gm/dL (4.2-5.5) L 11/10/18 04:30 Globulin 2.3 gm/dL 11/10/18 04:30 Albumin/Globulin Ratio 1.0 (1.0-1.8) 11/10/18 04:30 TSH 1.14 uIU/ml (0.34-5.60) 11/06/18 09:40 Urine Source CLEAN C 11/08/18 14:22 Urine Color YELLOW 11/08/18 14:22 Urine Clarity CLEAR (CLEAR) 11/08/18 14:22 Urine pH 6.5 (4.6 - 8.0) 11/08/18 14:22 Ur Specific Likely 1.020 (1.005-1.030) 11/08/18 14:22 Urine Protein TRACE mg/dL (NEGATIVE) 11/08/18 14:22 Urine Glucose (UA) >=1000 mg/dL (NEGATIVE) H 11/08/18 14:22 Urine Ketones NEGATIVE mg/dL (NEGATIVE) 11/08/18 14:22 Urine Blood SMALL (NEGATIVE) H 11/08/18 14:22 Urine Nitrate NEGATIVE (NEGATIVE) 11/08/18 14:22 Urine Bilirubin NEGATIVE (NEGATIVE) 11/08/18 14:22 Urine Urobilinogen 0.2 E.U./dL (0.2 - 1.0) 11/08/18 14:22 Ur Leukocyte Esterase NEGATIVE (NEGATIVE) 11/08/18 14:22 Urine RBC 0-2 /hpf (0-5) H 11/08/18 14:22 Urine WBC 0-2 /hpf (0-5) 11/08/18 14:22 Ur Epithelial Cells NONE SEEN /lpf (FEW) 11/08/18 14:22 Amorphous Sediment FEW URATES (NONE SEEN) 11/08/18 14:22 Urine Bacteria NONE SEEN /hpf (NONE SEEN) 11/08/18 14:22 Ur Random Sodium 32 mmol/L 11/07/18 10:00 Stool Occult Blood NEGATIVE (NEGATIVE) 11/08/18 17:50 Vancomycin Trough 11.2 ug/mL (5-10) H 11/09/18 08:00 Urine Opiates Screen NEGATIVE (NEGATIVE) 11/06/18 10:22 Urine Methadone Screen NEGATIVE (NEGATIVE) 11/06/18 10:22 Ur Barbiturates Screen NEGATIVE (NEGATIVE) 11/06/18 10:22 Ur Tricyclics Screen NEGATIVE (NEGATIVE) 11/06/18 10:22 Ur Phencyclidine Scrn NEGATIVE (NEGATIVE) 11/06/18 10:22 Amphetamines Screen NEGATIVE (NEGATIVE) 11/06/18 10:22 U Methamphetamines Scrn NEGATIVE (NEGATIVE) 11/06/18 10:22 U Benzodiazepines Scrn NEGATIVE (NEGATIVE) 11/06/18 10:22 U Cocaine Metab Screen POSITIVE (NEGATIVE) H 11/06/18 10:22 U Cannabinoids Screen POSITIVE (NEGATIVE) H 11/06/18 10:22 Hepatitis A IgM Ab Negative (Negative) 11/06/18 12:00 Hep Bs Antigen Negative (Negative) 11/06/18 12:00 Hep B Core IgM Ab Negative (Negative) 11/06/18 12:00 Hepatitis C Antibody <0.1 s/co ratio (0.0-0.9) 11/06/18 12:00 HIV 1&2 Antibody Screen NEGATIVE (NEG) 11/06/18 10:22 Influenza A (Rapid) NEG FOR INF A 11/08/18 13:00 Influenza B (Rapid) NEG FOR INF B 11/08/18 13:00 L.pneumophila Antigen Negative (Negative) 11/07/18 10:00 Mycoplasma pneumon IgG <100 U/mL (0-99) 11/07/18 06:50 - Physical Exam Vitals and I&O: Vital Signs Temp 98.5 F 11/10/18 12:00 Pulse 110 11/10/18 12:00 Resp 18 11/10/18 12:00 BP 122/70 11/10/18 12:00 Pulse Ox 92 11/10/18 12:00 Intake & Output 11/09/18 11/10/18 11/10/18 18:59 06:59 18:59 Intake Total 1969 1440 Output Total 1999 Balance 1969 - Weight (lbs) 66.497 kg Intake: Intake, IV Amount 1969 1240 D5-0.9%Ns 1,000 ml @ 100 1000 mls/hr IV .Q10H [facility] Rx#: [id number] Meropenem 2 gm In Sodium 100 Chloride 0.9% 100 ml @ 100 mls/hr IV Q8HR@0300, 1100,1900 [facility] Rx#: [id number] Piperacillin Sodium/ 100 200 Tazobact 4.5 gm In Sodium Chloride 0.9% 100 ml @ 100 mls/hr IV Q8HR [facility] Rx #:[id number] Sulfamethoxazole/TMP 20 520 1040 ml In Dextrose 5% 500 ml @ 346.667 mls/hr IV Q8H [facility] Rx#:[id number] Vancomycin HCl 1 gm In 250 Sodium Chloride 0.9% 250 ml @ 165 mls/hr IV Q8HR@ 0100,0900,1700 [facility] Rx#: [id number] Oral 200 Output: Urine 2000 Other: # Bowel Movements 0 Weight Source Patient stated Active Medications: Current Medications Acetaminophen (Tylenol) 650 mg PO Q4H PRN PRN Reason: Pain Or Fever above 101 Stop: 01/05/19 12:37 Last Admin: 11/08/18 16:37 Dose: 650 mg Al Hydrox/Mg Hydrox/Simethicone (Maalox) 30 ml PO Q6H PRN PRN Reason: Dyspepsia Stop: 01/05/19 12:37 Albuterol Sulfate (Albuterol 2.5mg/3ml Neb Ud) 2.5 mg HHN QIDRT [facility] Stop: 01/05/19 14:59 Last Admin: 11/10/18 10:42 Dose: 2.5 mg Alprazolam (Xanax) 0.25 mg PO Q6HR PRN; Protocol PRN Reason: Anxiety Stop: 01/05/19 20:19 Dextrose (D50w) 50 ml IVP PRN PRN PRN Reason: Blood Glucose less than 70 Stop: 01/06/19 14:23 Dextrose (Glutose 40%) 18.75 gm PO PRN PRN PRN Reason: Blood Glucose less than 70 Stop: 01/06/19 14:23 Escitalopram Oxalate (Lexapro) 5 mg PO DAILY [facility]; Protocol Stop: 01/09/19 12:20 Last Admin: 11/10/18 12:56 Dose: Not Given Glucagon (Glucagen) 1 mg IM PRN PRN PRN Reason: Blood Glucose less than 70 Stop: 01/06/19 14:23 Guaifenesin (Robitussin) 200 mg PO Q4HR PRN PRN Reason: Cough or Congestion Stop: 01/05/19 12:37 Last Admin: 11/09/18 23:04 Dose: 200 mg Trimethoprim/Sulfamethoxazole (20 ml/ Dextrose) 520 mls @ 346.667 mls/hr IV Q8H [facility] Stop: 01/05/19 18:29 Last Admin: 11/10/18 10:00 Dose: 347 mls/hr Levofloxacin (Levaquin Pb) 750 mg in 150 mls @ 100 mls/hr IV Q24HR [facility] Stop: 11/12/18 20:29 Last Admin: 11/09/18 20:24 Dose: 100 mls/hr Potassium Chloride/Dextrose/Sod Cl (D5-0.9ns W/Kcl 20meq) 1,000 mls @ 75 mls/ hr IV .[id number] [facility] Stop: 01/08/19 12:59 Last Admin: 11/09/18 13:51 Dose: 75 mls/hr Piperacillin Sod/Tazobactam (Sod 4.5 gm/ Sodium Chloride) 100 mls @ 100 mls/hr IV Q8HR [facility] Stop: 01/08/19 12:59 Last Admin: 11/10/18 12:52 Dose: 100 mls/hr Ibuprofen (Motrin) 800 mg PO TID PRN PRN Reason: Pain (Moderate) Stop: 01/06/19 20:59 Ipratropium Walker (Atrovent Neb 0.5mg/2.5ml) 0.5 mg IH QIDRT [facility] Stop: 01/05/19 14:59 Last Admin: 11/10/18 10:42 Dose: 0.5 mg Lactobacillus Rhamnosus (Culturelle 15b) 1 each PO BID [facility] Stop: 01/07/19 16:59 Last Admin: 11/10/18 09:25 Dose: 1 each Methylprednisolone Sodium Succinate (Solu-Medrol) 40 mg IVP Q12HR [facility] Stop: 01/08/19 20:59 Last Admin: 11/10/18 09:25 Dose: 40 mg Morphine Sulfate (Morphine) 2 mg IVP Q8H PRN PRN Reason: Pain (Severe) Stop: 01/05/19 12:37 Ondansetron HCl (Zofran) 4 mg IV Q8H PRN PRN Reason: Nausea / Vomiting Stop: 01/05/19 12:37 Last Admin: 11/08/18 02:05 Dose: 4 mg Pantoprazole Sodium (Protonix) 40 mg PO QDAC [place] Stop: 01/05/19 16:29 Last Admin: 11/10/18 06:45 Dose: 40 mg Tramadol HCl (Ultram) 50 mg PO Q6HR PRN PRN Reason: Pain (Severe) Stop: 01/05/19 20:17 Last Admin: 11/08/18 18:25 Dose: 50 mg Zolpidem Tartrate (Ambien) 10 mg PO HS PRN PRN Reason: Insomnia Stop: 01/05/19 12:37 Last Admin: 11/08/18 20:17 Dose: 10 mg General: no acute distress, cachectic HEENT: atraumatic, normocephalic, PERRLA, EOMI Neck: supple, no thyromegaly Cardiovascular: S1S2, regular Lungs: clear to auscultation bilaterally, clear to percussion, crackles, rhonchi Abdomen: soft, bowel sounds, no tender, no distended, no mass, no hepatomegaly, no splenomegaly, no obese Extremities: no cyanosis, no clubbing, no edema Neurological: awake, alert, oriented, CN 2-12 intact Skin: intact Infectious Disease Assmt/Plan - Assessment Assessment: 1. Severe neutropenia. improving WBC 0.3>1K. 2. Extensive pneumonia, both lung, inflammatory versus infectious. 3. Pustules. 4. Hyponatremia. 5. Sepsis. 6. Respiratory failure improved. - Plan Plan: Continue Zosyn. Continue bactrim. DC neutropenic isolation. Nutritional Asmnt/Malnutr-PDOC - Dietary Evaluation Malnutrition Findings (Please click <Entered> for more info): Nutritional Asmnt/Malnutrition Start: 11/07/18 10: 55 Text: Status: Complete Freq: Protocol: Document 11/07/18 10:55 DANAE (Rec: 11/07/18 11:13 DANAE HARDIN- [id number]) Nutritional Asmnt/Malnutrition Patient General Information Nutritional Screening High Risk Diagnosis Respiratory Failure, dehydration Pertinent Medical Hx/Surgical Hx None Subjective Information Per H&P, patient positive for cocaine and marijuana. Spoke with patient's sister, who states he has a sore throat and prefers to eat cold foods right now. She also states he eats "kid foods", and likes snack foods. Current Diet Order/ Nutrition Support Regular Patient / S.O Not Indicated Pertinent Medications maalox, solu-medrol, abx, zofran, protonix Pertinent Labs (11/07) Na 126 (improved), glucose 277, Ca 8.2, albumin 2 .7 Nutritional Hx/Data Height 1.78 m Height (Calculated Centimeters) 177.8 Current Weight (lbs) 61.235 kg Weight (Calculated Kilograms) 61.2 Weight (Calculated Grams) 94169.0 [place] Body Weight 166 % [place] Body Weight 81 Body Mass Index (BMI) 19.3 Recent Weight Change No Weight Status Approriate GI Symptoms GI Symptoms None Last BM 11/06 x 2 Difficult in: None Food Allergies No Cultural/Ethnic/Hinduism Belief none indicated Usual diet at home Regular Skin Integrity/Comment: Cuco 16, Intact Current %PO Negligible < 25% Estimated Nutritional Goals BEE in Kcals: Using Current wt Calories/Kcals/Kg 61.3kg CBW 30-35 kcal/kg Kcals Calculated ~2257-6974 kcal/day Protein: Using Current wt Protein g/k.2-1.5 gm/kg Protein Calculated ~75-90 gm/day Fluid: ml ~7831-8696 ml/day (1 ml/kcal) Nutritional Problem 1. Problem Problem Inadequate oral intake realted to Etiology possible poor appetite aeb Signs/Symptoms: PO <25% of meals, 81% IBW Intervention/Recommendation Comments 1. Continue regular diet as tolerated by patient. 2. If patient remains hyperglycemic (on Solu-medrol) consider modifying to 60 gm CCHO diet at that time. 3. Encourage oral intake of meals and snacks. 4. Start Ensure Enlive TID with meals Expected Outcomes/Goals Expected Outcomes/Goals PO intake to meet >75% of nutritional needs, weight stability or trend toward ideal body weight, skin intact , nutrition related labs to approach WNL. F/U MR 11/10-
--- NOTE | 2018-11-10 18:24 | General Progress Note ---
Subjective - Review of Systems Service Date: 11/10/18 Subjective: started eating, weak, occ cough, ambulating Objective - Results Result Diagrams: 11/10/18 04:30 11/10/18 04:30 Recent Labs: Laboratory Last Values WBC 6.8 Th/cmm (4.8-10.8) 11/10/18 04:30 RBC 3.80 Mil/cmm (4.30-5.70) L 11/10/18 04:30 Hgb 11.2 gm/dL (12-16) L 11/10/18 04:30 Hct 33.4 % (41.0-60) L 11/10/18 04:30 MCV 87.8 fl (80-99) 11/10/18 04:30 MCH 29.6 pg (26.0-30.0) 11/10/18 04:30 MCHC Differential 33.7 pg (28.0-36.0) 11/10/18 04:30 RDW 12.4 % (11.5-20.0) 11/10/18 04:30 Plt Count 148 Th/cmm (150-400) L 11/10/18 04:30 MPV 8.3 fl 11/10/18 04:30 Add Manual Diff YES 11/10/18 04:30 Band Neutrophils % 31 % (0-10) H 11/10/18 04:30 Neutrophils (Manual) 29 % (40-80) L 11/10/18 04:30 Lymphocytes 26 % (20-50) 11/10/18 04:30 Monocytes 13 % (2-10) H 11/10/18 04:30 Eosinophils 0 % (0-5) 11/09/18 04:15 Basophils 0 % (0-3) 11/09/18 04:15 Metamyelocytes 1 % (0-0) H 11/10/18 04:30 Atypical Lymphocytes % 11/09/18 04:15 Platelet Estimate ADEQUATE (NORMAL) 11/10/18 04:30 Smear Path Review YES 11/10/18 04:30 Plt Count 158 Th/cmm (150-750) 11/09/18 04:15 PT 10.3 SECONDS (9.5-11.5) 11/10/18 04:30 INR 0.99 (0.5-1.4) 11/10/18 04:30 PTT (Actin FS) 35.5 SECONDS (26.0-38.0) 11/10/18 04:30 Fibrinogen 500.0 mg/dL (200.0-400.0) H 11/08/18 04:50 D-Dimer 2720 ng/mL (100-400) H 11/09/18 04:15 Lupus Anticoag aPTT 59.7 sec (0.0-51.9) H 11/06/18 12:00 dRVVT Screen 79.3 sec (0.0-47.0) H 11/06/18 12:00 dRVVT Confirm Seconds 1.7 ratio (0.8-1.2) H 11/06/18 12:00 dRVVT Mix 57.1 sec (0.0-47.0) H 11/06/18 12:00 dRVVT 50:50 58.1 sec (0.0-48.9) H 11/06/18 12:00 Hexagonal Phospholipid 19 sec (0-11) H 11/06/18 12:00 Lupus Anticoag Interp Comment: 11/06/18 12:00 Specimen Source Arterial 11/07/18 07:39 Sample Site Right Radial 11/07/18 07:39 pH 7.498 (7.35-7.45) H 11/07/18 07:39 pCO2 23.3 mmHg (35.0-45.0) L* 11/07/18 07:39 pO2 174.3 mmHg (80.0-100.0) H 11/07/18 07:39 HCO3 17.7 mEq/L (20.0-26.0) L 11/07/18 07:39 Base Excess -3.4 mEq/L (-3.0-3.0) L 11/07/18 07:39 O2 Saturation 99.3 % (92.0-100.0) 11/07/18 07:39 Shiv Test Positive 11/07/18 07:39 Vent Rate NA 11/07/18 07:39 Inspired O2 32 11/07/18 07:39 Tidal Volume NA 11/07/18 07:39 PEEP NA 11/07/18 07:39 Pressure (ins/psv/peep) NA 11/07/18 07:39 Critical Value JG 11/07/18 07:39 Sodium 132 mEq/L (136-145) L 11/10/18 04:30 Potassium 3.7 mEq/L (3.5-5.1) 11/10/18 04:30 Chloride 101 mEq/L (98-107) 11/10/18 04:30 Carbon Dioxide 22.8 mEq/L (21.0-31.0) 11/10/18 04:30 Anion Gap 11.9 (7.0-16.0) 11/10/18 04:30 BUN 19 mg/dL (7-25) 11/10/18 04:30 Creatinine 0.7 mg/dL (0.7-1.3) 11/10/18 04:30 Est GFR ( Amer) > 60.0 ml/min (>90) 11/10/18 04:30 Est GFR (Non-Af Amer) > 60.0 ml/min 11/10/18 04:30 BUN/Creatinine Ratio 27.1 11/10/18 04:30 Glucose 163 mg/dL (70-105) H 11/10/18 04:30 POC Glucose 102 MG/DL (70 - 105) 11/09/18 11:58 Whole Bld Lactic Acid 1.35 mmol/L (0.60-1.99) 11/06/18 12:00 Uric Acid 1.6 mg/dL (4.4-7.6) L 11/07/18 05:00 Calcium 7.8 mg/dL (8.6-10.3) L 11/10/18 04:30 Magnesium 2.1 mg/dL (1.9-2.7) 11/10/18 04:30 Total Bilirubin 0.5 mg/dL (0.3-1.0) 11/10/18 04:30 AST 35 U/L (13-39) 11/10/18 04:30 ALT 58 U/L (7-52) H 11/10/18 04:30 Alkaline Phosphatase 30 U/L (34-104) L 11/10/18 04:30 Lactate Dehydrogenase 119 U/L (140-271) L 11/06/18 18:32 Creatine Kinase 233 U/L (30-223) H 11/06/18 18:32 CK-MB (CK-2) 4.6 ng/mL (0.6-6.3) 11/06/18 18:32 Troponin I 0.03 ng/mL (0.01-0.05) 11/06/18 09:40 Total Protein 4.7 gm/dL (6.0-8.3) L 11/10/18 04:30 Albumin 2.4 gm/dL (4.2-5.5) L 11/10/18 04:30 Globulin 2.3 gm/dL 11/10/18 04:30 Albumin/Globulin Ratio 1.0 (1.0-1.8) 11/10/18 04:30 TSH 1.14 uIU/ml (0.34-5.60) 11/06/18 09:40 Urine Source CLEAN C 11/08/18 14:22 Urine Color YELLOW 11/08/18 14:22 Urine Clarity CLEAR (CLEAR) 11/08/18 14:22 Urine pH 6.5 (4.6 - 8.0) 11/08/18 14:22 Ur Specific [place] 1.020 (1.005-1.030) 11/08/18 14:22 Urine Protein TRACE mg/dL (NEGATIVE) 11/08/18 14:22 Urine Glucose (UA) >=1000 mg/dL (NEGATIVE) H 11/08/18 14:22 Urine Ketones NEGATIVE mg/dL (NEGATIVE) 11/08/18 14:22 Urine Blood SMALL (NEGATIVE) H 11/08/18 14:22 Urine Nitrate NEGATIVE (NEGATIVE) 11/08/18 14:22 Urine Bilirubin NEGATIVE (NEGATIVE) 11/08/18 14:22 Urine Urobilinogen 0.2 E.U./dL (0.2 - 1.0) 11/08/18 14:22 Ur Leukocyte Esterase NEGATIVE (NEGATIVE) 11/08/18 14:22 Urine RBC 0-2 /hpf (0-5) H 11/08/18 14:22 Urine WBC 0-2 /hpf (0-5) 11/08/18 14:22 Ur Epithelial Cells NONE SEEN /lpf (FEW) 11/08/18 14:22 Amorphous Sediment FEW URATES (NONE SEEN) 11/08/18 14:22 Urine Bacteria NONE SEEN /hpf (NONE SEEN) 11/08/18 14:22 Ur Random Sodium 32 mmol/L 11/07/18 10:00 Stool Occult Blood NEGATIVE (NEGATIVE) 11/08/18 17:50 Vancomycin Trough 11.2 ug/mL (5-10) H 11/09/18 08:00 Urine Opiates Screen NEGATIVE (NEGATIVE) 11/06/18 10:22 Urine Methadone Screen NEGATIVE (NEGATIVE) 11/06/18 10:22 Ur Barbiturates Screen NEGATIVE (NEGATIVE) 11/06/18 10:22 Ur Tricyclics Screen NEGATIVE (NEGATIVE) 11/06/18 10:22 Ur Phencyclidine Scrn NEGATIVE (NEGATIVE) 11/06/18 10:22 Amphetamines Screen NEGATIVE (NEGATIVE) 11/06/18 10:22 U Methamphetamines Scrn NEGATIVE (NEGATIVE) 11/06/18 10:22 U Benzodiazepines Scrn NEGATIVE (NEGATIVE) 11/06/18 10:22 U Cocaine Metab Screen POSITIVE (NEGATIVE) H 11/06/18 10:22 U Cannabinoids Screen POSITIVE (NEGATIVE) H 11/06/18 10:22 RPR NONREACTIVE (NONREACTIVE) 11/06/18 09:40 Hepatitis A IgM Ab Negative (Negative) 11/06/18 12:00 Hep Bs Antigen Negative (Negative) 11/06/18 12:00 Hep B Core IgM Ab Negative (Negative) 11/06/18 12:00 Hepatitis C Antibody <0.1 s/co ratio (0.0-0.9) 11/06/18 12:00 HIV 1&2 Antibody Screen NEGATIVE (NEG) 11/06/18 10:22 Influenza A (Rapid) NEG FOR INF A 11/08/18 13:00 Influenza B (Rapid) NEG FOR INF B 11/08/18 13:00 L.pneumophila Antigen Negative (Negative) 11/07/18 10:00 Mycoplasma pneumon IgG <100 U/mL (0-99) 11/07/18 06:50 - Physical Exam Vitals and I&O: Vital Signs Temp 98.5 F 11/10/18 12:00 Pulse 97 11/10/18 15:03 Resp 18 11/10/18 15:03 BP 122/70 11/10/18 12:00 Pulse Ox 94 11/10/18 15:03 Intake & Output 11/09/18 11/10/18 11/10/18 18:59 06:59 18:59 Intake Total 1969 1440 520 Output Total 1999 Balance 1969 -560 520 Weight (lbs) 66.497 kg Intake: Intake, IV Amount 19690 520 D5-0.9%Ns 1,000 ml @ 100 1000 mls/hr IV .Q10H [facility] Rx#: [id number] Meropenem 2 gm In Sodium 100 Chloride 0.9% 100 ml @ 100 mls/hr IV Q8HR@0300, 1100,1900 [facility] Rx#: [id number] Piperacillin Sodium/ 100 200 Tazobact 4.5 gm In Sodium Chloride 0.9% 100 ml @ 100 mls/hr IV Q8HR [facility] Rx #:[id number] Sulfamethoxazole/TMP 20 520 1040 520 ml In Dextrose 5% 500 ml @ 346.667 mls/hr IV Q8H [facility] Rx#:[id number] Vancomycin HCl 1 gm In 250 Sodium Chloride 0.9% 250 ml @ 165 mls/hr IV Q8HR@ 0100,0900,1700 [facility] Rx#: [id number] Oral 200 Output: Urine 2000 Other: # Bowel Movements 0 Weight Source Patient stated Active Medications: Current Medications Acetaminophen (Tylenol) 650 mg PO Q4H PRN PRN Reason: Pain Or Fever above 101 Stop: 01/05/19 12:37 Last Admin: 11/08/18 16:37 Dose: 650 mg Al Hydrox/Mg Hydrox/Simethicone (Maalox) 30 ml PO Q6H PRN PRN Reason: Dyspepsia Stop: 01/05/19 12:37 Albuterol Sulfate (Albuterol 2.5mg/3ml Neb Ud) 2.5 mg HHN QIDRT [facility] Stop: 01/05/19 14:59 Last Admin: 11/10/18 15:03 Dose: 2.5 mg Alprazolam (Xanax) 0.25 mg PO Q6HR PRN; Protocol PRN Reason: Anxiety Stop: 01/05/19 20:19 Dextrose (D50w) 50 ml IVP PRN PRN PRN Reason: Blood Glucose less than 70 Stop: 01/06/19 14:23 Dextrose (Glutose 40%) 18.75 gm PO PRN PRN PRN Reason: Blood Glucose less than 70 Stop: 01/06/19 14:23 Escitalopram Oxalate (Lexapro) 5 mg PO DAILY [facility]; Protocol Stop: 01/09/19 12:20 Last Admin: 11/10/18 12:56 Dose: Not Given Glucagon (Glucagen) 1 mg IM PRN PRN PRN Reason: Blood Glucose less than 70 Stop: 01/06/19 14:23 Guaifenesin (Robitussin) 200 mg PO Q4HR PRN PRN Reason: Cough or Congestion Stop: 01/05/19 12:37 Last Admin: 11/09/18 23:04 Dose: 200 mg Trimethoprim/Sulfamethoxazole (20 ml/ Dextrose) 520 mls @ 346.667 mls/hr IV Q8H [facility] Stop: 01/05/19 18:29 Last Admin: 11/10/18 17:32 Dose: 347 mls/hr Levofloxacin (Levaquin Pb) 750 mg in 150 mls @ 100 mls/hr IV Q24HR [facility] Stop: 11/12/18 20:29 Last Admin: 11/09/18 20:24 Dose: 100 mls/hr Potassium Chloride/Dextrose/Sod Cl (D5-0.9ns W/Kcl 20meq) 1,000 mls @ 75 mls/ hr IV .[id number] [facility] Stop: 01/08/19 12:59 Last Admin: 11/09/18 13:51 Dose: 75 mls/hr Piperacillin Sod/Tazobactam (Sod 4.5 gm/ Sodium Chloride) 100 mls @ 100 mls/hr IV Q8HR [facility] Stop: 01/08/19 12:59 Last Admin: 11/10/18 12:52 Dose: 100 mls/hr Ibuprofen (Motrin) 800 mg PO TID PRN PRN Reason: Pain (Moderate) Stop: 01/06/19 20:59 Ipratropium [place] (Atrovent Neb 0.5mg/2.5ml) 0.5 mg IH QIDRT [facility] Stop: 01/05/19 14:59 Last Admin: 11/10/18 15:03 Dose: 0.5 mg Lactobacillus Rhamnosus (Culturelle 15b) 1 each PO BID [facility] Stop: 01/07/19 16:59 Last Admin: 11/10/18 17:32 Dose: 1 each Methylprednisolone Sodium Succinate (Solu-Medrol) 40 mg IVP Q12HR [facility] Stop: 01/08/19 20:59 Last Admin: 11/10/18 09:25 Dose: 40 mg Morphine Sulfate (Morphine) 2 mg IVP Q8H PRN PRN Reason: Pain (Severe) Stop: 01/05/19 12:37 Ondansetron HCl (Zofran) 4 mg IV Q8H PRN PRN Reason: Nausea / Vomiting Stop: 01/05/19 12:37 Last Admin: 11/08/18 02:05 Dose: 4 mg Pantoprazole Sodium (Protonix) 40 mg PO QDAC [facility] Stop: 01/05/19 16:29 Last Admin: 11/10/18 06:45 Dose: 40 mg Tramadol HCl (Ultram) 50 mg PO Q6HR PRN PRN Reason: Pain (Severe) Stop: 01/05/19 20:17 Last Admin: 11/08/18 18:25 Dose: 50 mg Zolpidem Tartrate (Ambien) 10 mg PO HS PRN PRN Reason: Insomnia Stop: 01/05/19 12:37 Last Admin: 11/08/18 20:17 Dose: 10 mg General: Alert, No acute distress HEENT: Atraumatic, Mucous membr. 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 Severe dehydration Severe Sepsis 2/2 UTI, ?CAP Resp Alkalosis Multi focal Infiltrates - Plan Plan: Lab - Result Diagrams 11/07/18 05:00 11/07/18 05:00 Current Medications Acetaminophen (Tylenol) 650 mg PO Q4H PRN PRN Reason: Pain Or Fever above 101 Stop: 01/05/19 12:37 Last Admin: 11/06/18 21:46 Dose: 650 mg Al Hydrox/Mg Hydrox/Simethicone (Maalox) 30 ml PO Q6H PRN PRN Reason: Dyspepsia Stop: 01/05/19 12:37 Albuterol Sulfate (Albuterol 2.5mg/3ml Neb Ud) 2.5 mg HHN QIDRT [facility] Stop: 01/05/19 14:59 Last Admin: 11/07/18 10:09 Dose: 2.5 mg Alprazolam (Xanax) 0.25 mg PO Q8HR PRN; Protocol PRN Reason: Anxiety Stop: 01/05/19 20:19 Last Admin: 11/06/18 21:47 Dose: 0.25 mg Filgrastim (Neupogen) 480 mcg SUBQ DAILY [facility] Stop: 01/05/19 18:44 Last Admin: 11/07/18 13:29 Dose: 480 mcg Guaifenesin (Robitussin) 200 mg PO Q4HR PRN PRN Reason: Cough or Congestion Stop: 01/05/19 12:37 Heparin Sodium (Porcine) (Heparin) 5,000 units SUBQ Q12HR [facility] Stop: 01/05/19 20:59 Last Admin: 11/07/18 10:16 Dose: 5,000 units Dextrose/Sodium Chloride (D5-0.9%Ns) 1,000 mls @ 125 mls/hr IV .Q8H [facility] Stop: 01/05/19 12:44 Last Admin: 11/07/18 04:45 Dose: 125 mls/hr Fluconazole/Sodium Chloride (Diflucan) 400 mg in 200 mls @ 100 mls/hr IV Q24HR [facility] Stop: 01/05/19 13:59 Last Infusion: 11/06/18 16:15 Dose: Infused Vancomycin HCl 1 gm/ Sodium (Chloride) 250 mls @ 166.667 mls/hr IV Q6H [facility] Stop: 01/05/19 14:59 Last Admin: 11/07/18 08:50 Dose: 165 mls/hr Trimethoprim/Sulfamethoxazole (20 ml/ Dextrose) 520 mls @ 346.667 mls/hr IV Q8H [facility] Stop: 01/05/19 18:29 Last Admin: 11/07/18 10:15 Dose: 346 mls/hr Levofloxacin (Levaquin Pb) 750 mg in 150 mls @ 100 mls/hr IV Q24HR [facility] Stop: 11/12/18 20:29 Last Infusion: 11/06/18 21:25 Dose: Infused Meropenem 2 gm/ Sodium (Chloride) 100 mls @ 100 mls/hr IV Q8HR@0300,1100,1900 [facility] Stop: 01/05/19 20:59 Last Admin: 11/07/18 13:27 Dose: 100 mls/hr Ipratropium [place] (Atrovent Neb 0.5mg/2.5ml) 0.5 mg IH QIDRT [facility] Stop: 01/05/19 14:59 Last Admin: 11/07/18 10:09 Dose: 0.5 mg Methylprednisolone Sodium Succinate (Solu-Medrol) 80 mg IVP Q8HR [facility] Stop: 01/05/19 12:59 Last Admin: 11/07/18 13:27 Dose: 80 mg Miscellaneous (Vancomycin Iv Per Pharmacy) 1 ea MC PRN PRN PRN Reason: VANCOMYCIN IV PER RX Stop: 01/05/19 13:19 Morphine Sulfate (Morphine) 2 mg IVP Q4H PRN PRN Reason: Pain (Severe) Stop: 01/05/19 12:37 Last Admin: 11/07/18 04:45 Dose: 2 mg Ondansetron HCl (Zofran) 4 mg IV Q8H PRN PRN Reason: Nausea / Vomiting Stop: 01/05/19 12:37 Pantoprazole Sodium (Protonix) 40 mg PO QDAC [facility] Stop: 01/05/19 16:29 Last Admin: 11/07/18 06:46 Dose: 40 mg Tramadol HCl (Ultram) 50 mg PO Q6HR PRN PRN Reason: Pain (Moderate) Stop: 01/05/19 20:17 Last Admin: 11/07/18 10:15 Dose: 50 mg Zolpidem Tartrate (Ambien) 10 mg PO HS PRN PRN Reason: Insomnia Stop: 01/05/19 12:3 Lab - Result Diagrams 11/10/18 04:30 11/10/18 04:30 Na stable @ 132 WBC improved to 6.8 f/u electrolytes, cbc continue IVF replace K Nutritional Asmnt/Malnutr-PDOC - Dietary Evaluation Malnutrition Findings (Please click <Entered> for more info): Nutritional Asmnt/Malnutrition Start: 11/07/18 10: 55 Text: Status: Complete Freq: Protocol: Document 11/07/18 10:55 DANAE (Rec: 11/07/18 11:13 DANAE SHAH [email or web address]) Nutritional Asmnt/Malnutrition Patient General Information Nutritional Screening High Risk Diagnosis Respiratory Failure, dehydration Pertinent Medical Hx/Surgical Hx None Subjective Information Per H&P, patient positive for cocaine and marijuana. Spoke with patient's sister, who states he has a sore throat and prefers to eat cold foods right now. She also states he eats "kid foods", and likes snack foods. Current Diet Order/ Nutrition Support Regular Patient / S.O Not Indicated Pertinent Medications maalox, solu-medrol, abx, zofran, protonix Pertinent Labs (11/07) Na 126 (improved), glucose 277, Ca 8.2, albumin 2 .7 Nutritional Hx/Data Height 1.78 m Height (Calculated Centimeters) 177.8 Current Weight (lbs) 61.235 kg Weight (Calculated Kilograms) 61.2 Weight (Calculated Grams) 58833.0 [place] Body Weight 166 % [place] Body Weight 81 Body Mass Index (BMI) 19.3 Recent Weight Change No Weight Status Approriate GI Symptoms GI Symptoms None Last BM 11/06 x 2 Difficult in: None Food Allergies No Cultural/Ethnic/[employer] Belief none indicated Usual diet at home Regular Skin Integrity/Comment: Cuco 16, Intact Current %PO Negligible < 25% Estimated Nutritional Goals BEE in Kcals: Using Current wt Calories/Kcals/Kg 61.3kg CBW 30-35 kcal/kg Kcals Calculated ~8431-9236 kcal/day Protein: Using Current wt Protein g/k.2-1.5 gm/kg Protein Calculated ~75-90 gm/day Fluid: ml ~7029-8696 ml/day (1 ml/kcal) Nutritional Problem 1. Problem Problem Inadequate oral intake realted to Etiology possible poor appetite aeb Signs/Symptoms: PO <25% of meals, 81% IBW Intervention/Recommendation Comments 1. Continue regular diet as tolerated by patient. 2. If patient remains hyperglycemic (on Solu-medrol) consider modifying to 60 gm CCHO diet at that time. 3. Encourage oral intake of meals and snacks. 4. Start Ensure Enlive TID with meals Expected Outcomes/Goals Expected Outcomes/Goals PO intake to meet >75% of nutritional needs, weight stability or trend toward ideal body weight, skin intact , nutrition related labs to approach WNL. F/U MR 11/10-
[2018-11-10] MEDS: Levofloxacin 750mg/150mL 750 MG/150 ML BAG IV SCH (19:44)
--- NOTE | 2018-11-11 01:41 | Consultation ---
DATE OF CONSULTATION: 11/10/2018 PSYCHIATRIC CONSULTATION CHIEF COMPLAINT: "I am having hard time." HISTORY OF PRESENT ILLNESS: The patient is a 38-year-old male who was admitted to the hospital for weakness and cough and sepsis. The patient is being medically treated. The patient reports some anxiety and depression at times. Said he relapsed on cocaine and alcohol and he wants to stop. The patient reports some stress regarding family issues. The patient denied, however, having suicidal thoughts of wishes. The patient said he wants to stop cocaine again and he wants to receive treatment. PAST PSYCHIATRIC HISTORY: Significant for cocaine. Denied prior hospitalizations. Denied prior suicide attempt. PSYCHOSOCIAL HISTORY: The patient lives by himself. 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 He has three young children and he is single at this time. Sister is supportive. SUBSTANCE ABUSE HISTORY: Cocaine and alcohol off and on. Said he was sober for a while, then he relapsed and his family just found out and had an intervention today, came to him and they are very supportive. MENTAL STATUS EXAMINATION: Speech fluent, not pressured; makes fair eye contact. Affect is slightly anxious and somewhat depressed. No auditory or visual hallucinations. No delusional thoughts. No suicidal or homicidal thoughts. Insight is fair. He is oriented x 3. ASSESSMENT: Major depressive disorder, alcohol and cocaine abuse. PLAN: At this time, we would recommend intensive outpatient treatment. The patient to consider inpatient rehab. Use Lexapro 10 mg daily to help with depression and anxiety. Spoke with sister, discussed condition in details with the patient's permission. If he decides not to go to inpatient rehab or attend an intensive outpatient treatment program, should at least attend AA meetings on a daily basis and receive therapy and treatment in outpatient. Thank you for the consultation. JOB# [id number]
[2018-11-11] MEDS: DEXTROSE IV SCH ×3 (02:11→17:30)
[2018-11-11] MEDS: SULFAMETHOXAZOLE IV SCH ×3 (02:11→17:30)
[2018-11-11] MEDS: TMP IV SCH ×3 (02:11→17:30)
[2018-11-11] MEDS: D5-0.9NS w/KCL 20mEq 1,000 ML IV SCH (02:20)
[2018-11-11 06:16] LABS: INR 1.05 (0.5-1.4)
[2018-11-11 06:32] LABS: ALB/GLOB RATIO 1.1 (1.0-1.8); ALBUMIN 2.6 gm/dL (4.2-5.5); ALKALINE PHOSPHATASE 48 U/L (34-104); BILIRUBIN,TOTAL 0.4 mg/dL (0.3-1.0); BUN - UREA NITROGEN 16 mg/dL (7-25); CALCIUM SERUM 8.1 mg/dL (8.6-10.3); CARBON DIOXIDE 23.1 mEq/L (21.0-31.0); CHLORIDE 100 mEq/L (98-107); CREATININE - SERUM 0.7 mg/dL (0.7-1.3); GFR AFRICAN-AMERICAN > 60.0 ml/min (>90); GFR NON AFRICAN-AMERICAN > 60.0 ml/min; GLUCOSE 130 mg/dL (70-105); MAGNESIUM 2.2 mg/dL (1.9-2.7); POTASSIUM SERUM 4.1 mEq/L (3.5-5.1); SGOT 35 U/L (13-39); SGPT/ALT 60 U/L (7-52); SODIUM SERUM 131 mEq/L (136-145); TOTAL PROTEIN,SERUM 4.9 gm/dL (6.0-8.3)
[2018-11-11] MEDS: Pantoprazole 40 mg EC Tab PO SCH (06:38)
[2018-11-11] MEDS: Ipratropium Neb 0.5 mg/2.5 mL UD IH SCH ×4 (07:33→18:52)
[2018-11-11] MEDS: Albuterol Nebulizer 2.5mg/3mL HHN SCH ×4 (07:33→18:52)
--- NOTE | 2018-11-11 08:31 | Diagnostic Imaging Report ---
Portable chest x-ray HISTORY: Pneumonia Compared with prior exam of November 09, 2018, no change in faint hazy bilateral multifocal infiltrates. IMPRESSION: 1. No change in the pulmonary status.
[2018-11-11] MEDS: Lactobacillus Rhamnosus GG 15 Billion CFU CAP.SPRINK PO SCH ×2 (08:35→16:01)
[2018-11-11] MEDS: methylPREDNISolone SS 40 mg Vial IVP SCH (08:35)
[2018-11-11] MEDS: Escitalopram Oxalate 5 mg Tab PO SCH (08:35)
[2018-11-11 10:07] LABS: HEMATOCRIT 37.4 % (41.0-60); HEMOGLOBIN 12.3 gm/dL (12-16); RED BLOOD COUNT 4.27 Mil/cmm (4.30-5.70)
[2018-11-11 10:08] LABS: MEAN CELL VOLUME 87.7 fl (80-99); MEAN CORPUSCULAR HEMOGLOBIN 28.8 pg (26.0-30.0); MEAN CORPUSCULAR HGB CONC 32.9 pg (28.0-36.0); PLATELET COUNT 165 Th/cmm (150-400); RED CELL DISTRIBUTION WIDTH 13.8 % (11.5-20.0); WHITE BLOOD COUNT 21.8 Th/cmm (4.8-10.8)
[2018-11-11 10:42] LABS: BAND NEUTROPHILE 4 % (0-10); BASOPHIL 0 % (0-3); EOSINOPHIL 0 % (0-5); LYMPHOCYTE 9 % (20-50); METAMYELOCYTE 2 % (0-0); MONOCYTE 3 % (2-10); MYELOCYTE 3 %; NEUTROPHILS 79 % (40-80)
[2018-11-11] MEDS ORDERED: Probiotic Screen MC PRN (11:30)
--- NOTE | 2018-11-11 12:38 | Internal Medicine Prog Note ---
Internal Medicine Subjective - Subjective Patient seen and examined:: with staff, chart reviewed Patient is:: awake, verbal, interactive, in bed Patient Complaints of:: congestion, cough, pain with urination, LBP, headache, chest pain, unable to sleep Per staff patient has:: no adverse event, poor appetite, tolerating meds Internal Medicine Objective - Results Result Diagrams: 11/11/18 05:45 11/11/18 05:45 Recent Labs: Laboratory Last Values WBC 21.8 Th/cmm (4.8-10.8) H* D 11/11/18 05:45 RBC 4.27 Mil/cmm (4.30-5.70) L 11/11/18 05:45 Hgb 12.3 gm/dL (12-16) 11/11/18 05:45 Hct 37.4 % (41.0-60) L 11/11/18 05:45 MCV 87.7 fl (80-99) 11/11/18 05:45 MCH 28.8 pg (26.0-30.0) 11/11/18 05:45 MCHC Differential 32.9 pg (28.0-36.0) 11/11/18 05:45 RDW 13.8 % (11.5-20.0) 11/11/18 05:45 Plt Count 165 Th/cmm (150-400) 11/11/18 05:45 MPV 9.5 fl 11/11/18 05:45 Add Manual Diff YES 11/11/18 05:45 Band Neutrophils % 4 % (0-10) 11/11/18 05:45 Neutrophils (Manual) 79 % (40-80) 11/11/18 05:45 Lymphocytes 9 % (20-50) L 11/11/18 05:45 Monocytes 3 % (2-10) 11/11/18 05:45 Eosinophils 0 % (0-5) 11/11/18 05:45 Basophils 0 % (0-3) 11/11/18 05:45 Metamyelocytes 2 % (0-0) H 11/11/18 05:45 Myelocytes 3 % 11/11/18 05:45 Atypical Lymphocytes % 11/09/18 04:15 Platelet Estimate ADEQUATE (NORMAL) 11/10/18 04:30 Smear Path Review 11/11/18 05:45 Plt Count 158 Th/cmm (150-750) 11/09/18 04:15 PT 10.9 SECONDS (9.5-11.5) 11/11/18 05:45 INR 1.05 (0.5-1.4) 11/11/18 05:45 PTT (Actin FS) 31.3 SECONDS (26.0-38.0) 11/11/18 05:45 Fibrinogen 890.0 mg/dL (200.0-400.0) H 11/09/18 04:15 D-Dimer 2720 ng/mL (100-400) H 11/09/18 04:15 Lupus Anticoag aPTT 59.7 sec (0.0-51.9) H 11/06/18 12:00 dRVVT Screen 79.3 sec (0.0-47.0) H 11/06/18 12:00 dRVVT Confirm Seconds 1.7 ratio (0.8-1.2) H 11/06/18 12:00 dRVVT Mix 57.1 sec (0.0-47.0) H 11/06/18 12:00 dRVVT 50:50 58.1 sec (0.0-48.9) H 11/06/18 12:00 Hexagonal Phospholipid 19 sec (0-11) H 11/06/18 12:00 Lupus Anticoag Interp Comment: 11/06/18 12:00 Specimen Source Arterial 11/07/18 07:39 Sample Site Right Radial 11/07/18 07:39 pH 7.498 (7.35-7.45) H 11/07/18 07:39 pCO2 23.3 mmHg (35.0-45.0) L* 11/07/18 07:39 pO2 174.3 mmHg (80.0-100.0) H 11/07/18 07:39 HCO3 17.7 mEq/L (20.0-26.0) L 11/07/18 07:39 Base Excess -3.4 mEq/L (-3.0-3.0) L 11/07/18 07:39 O2 Saturation 99.3 % (92.0-100.0) 11/07/18 07:39 Shiv Test Positive 11/07/18 07:39 Vent Rate NA 11/07/18 07:39 Inspired O2 32 11/07/18 07:39 Tidal Volume NA 11/07/18 07:39 PEEP NA 11/07/18 07:39 Pressure (ins/psv/peep) NA 11/07/18 07:39 Critical Value JG 11/07/18 07:39 Sodium 131 mEq/L (136-145) L 11/11/18 05:45 Potassium 4.1 mEq/L (3.5-5.1) 11/11/18 05:45 Chloride 100 mEq/L (98-107) 11/11/18 05:45 Carbon Dioxide 23.1 mEq/L (21.0-31.0) 11/11/18 05:45 Anion Gap 12.0 (7.0-16.0) 11/11/18 05:45 BUN 16 mg/dL (7-25) 11/11/18 05:45 Creatinine 0.7 mg/dL (0.7-1.3) 11/11/18 05:45 Est GFR ( Amer) > 60.0 ml/min (>90) 11/11/18 05:45 Est GFR (Non-Af Amer) > 60.0 ml/min 11/11/18 05:45 BUN/Creatinine Ratio 22.9 11/11/18 05:45 Glucose 130 mg/dL (70-105) H 11/11/18 05:45 POC Glucose 102 MG/DL (70 - 105) 11/09/18 11:58 Plasma/Ser Osmolality 278 mOsmol/kg (275-295) 11/08/18 05:00 Whole Bld Lactic Acid 1.35 mmol/L (0.60-1.99) 11/06/18 12:00 Uric Acid 1.6 mg/dL (4.4-7.6) L 11/07/18 05:00 Calcium 8.1 mg/dL (8.6-10.3) L 11/11/18 05:45 Magnesium 2.2 mg/dL (1.9-2.7) 11/11/18 05:45 Total Bilirubin 0.4 mg/dL (0.3-1.0) 11/11/18 05:45 AST 35 U/L (13-39) 11/11/18 05:45 ALT 60 U/L (7-52) H 11/11/18 05:45 Alkaline Phosphatase 48 U/L (34-104) 11/11/18 05:45 Lactate Dehydrogenase 119 U/L (140-271) L 11/06/18 18:32 Creatine Kinase 233 U/L (30-223) H 11/06/18 18:32 CK-MB (CK-2) 4.6 ng/mL (0.6-6.3) 11/06/18 18:32 Troponin I 0.03 ng/mL (0.01-0.05) 11/06/18 09:40 Total Protein 4.9 gm/dL (6.0-8.3) L 11/11/18 05:45 Albumin 2.6 gm/dL (4.2-5.5) L 11/11/18 05:45 Globulin 2.3 gm/dL 11/11/18 05:45 Albumin/Globulin Ratio 1.1 (1.0-1.8) 11/11/18 05:45 TSH 1.14 uIU/ml (0.34-5.60) 11/06/18 09:40 Urine Source CLEAN C 11/08/18 14:22 Urine Color YELLOW 11/08/18 14:22 Urine Clarity CLEAR (CLEAR) 11/08/18 14:22 Urine pH 6.5 (4.6 - 8.0) 11/08/18 14:22 Ur Specific [place] 1.020 (1.005-1.030) 11/08/18 14:22 Urine Protein TRACE mg/dL (NEGATIVE) 11/08/18 14:22 Urine Glucose (UA) >=1000 mg/dL (NEGATIVE) H 11/08/18 14:22 Urine Ketones NEGATIVE mg/dL (NEGATIVE) 11/08/18 14:22 Urine Blood SMALL (NEGATIVE) H 11/08/18 14:22 Urine Nitrate NEGATIVE (NEGATIVE) 11/08/18 14:22 Urine Bilirubin NEGATIVE (NEGATIVE) 11/08/18 14:22 Urine Urobilinogen 0.2 E.U./dL (0.2 - 1.0) 11/08/18 14:22 Ur Leukocyte Esterase NEGATIVE (NEGATIVE) 11/08/18 14:22 Urine RBC 0-2 /hpf (0-5) H 11/08/18 14:22 Urine WBC 0-2 /hpf (0-5) 11/08/18 14:22 Ur Epithelial Cells NONE SEEN /lpf (FEW) 11/08/18 14:22 Amorphous Sediment FEW URATES (NONE SEEN) 11/08/18 14:22 Urine Bacteria NONE SEEN /hpf (NONE SEEN) 11/08/18 14:22 Ur Random Sodium 32 mmol/L 11/07/18 10:00 Stool Occult Blood NEGATIVE (NEGATIVE) 11/08/18 17:50 Vancomycin Trough 11.2 ug/mL (5-10) H 11/09/18 08:00 Urine Opiates Screen NEGATIVE (NEGATIVE) 11/06/18 10:22 Urine Methadone Screen NEGATIVE (NEGATIVE) 11/06/18 10:22 Ur Barbiturates Screen NEGATIVE (NEGATIVE) 11/06/18 10:22 Ur Tricyclics Screen NEGATIVE (NEGATIVE) 11/06/18 10:22 Ur Phencyclidine Scrn NEGATIVE (NEGATIVE) 11/06/18 10:22 Amphetamines Screen NEGATIVE (NEGATIVE) 11/06/18 10:22 U Methamphetamines Scrn NEGATIVE (NEGATIVE) 11/06/18 10:22 U Benzodiazepines Scrn NEGATIVE (NEGATIVE) 11/06/18 10:22 U Cocaine Metab Screen POSITIVE (NEGATIVE) H 11/06/18 10:22 U Cannabinoids Screen POSITIVE (NEGATIVE) H 11/06/18 10:22 RPR NONREACTIVE (NONREACTIVE) 11/06/18 09:40 Hepatitis A IgM Ab Negative (Negative) 11/06/18 12:00 Hep Bs Antigen Negative (Negative) 11/06/18 12:00 Hep B Core IgM Ab Negative (Negative) 11/06/18 12:00 Hepatitis C Antibody <0.1 s/co ratio (0.0-0.9) 11/06/18 12:00 HIV 1&2 Antibody Screen NEGATIVE (NEG) 11/06/18 10:22 Influenza A (Rapid) NEG FOR INF A 11/08/18 13:00 Influenza B (Rapid) NEG FOR INF B 11/08/18 13:00 L.pneumophila Antigen Negative (Negative) 11/07/18 10:00 Mycoplasma pneumon IgG <100 U/mL (0-99) 11/07/18 06:50 - Physical Exam Vitals and I&O: Vital Signs Temp 97.8 F 11/11/18 12:05 Pulse 83 11/11/18 12:05 Resp 19 11/11/18 12:05 BP 138/79 11/11/18 12:05 Pulse Ox 95 11/11/18 12:05 Intake & Output 11/10/18 11/11/18 11/11/18 18:59 06:59 18:59 Intake Total 620 1140 Balance 620 1140 Intake: Intake, IV Amount 620 1140 Piperacillin Sodium/ 100 100 Tazobact 4.5 gm In Sodium Chloride 0.9% 100 ml @ 100 mls/hr IV Q8HR [facility] Rx #:[id number] Sulfamethoxazole/TMP 20 520 1040 ml In Dextrose 5% 500 ml @ 346.667 mls/hr IV Q8H [facility] Rx#:[id number] Active Medications: Current Medications Acetaminophen (Tylenol) 650 mg PO Q4H PRN PRN Reason: Pain Or Fever above 101 Stop: 01/05/19 12:37 Last Admin: 11/08/18 16:37 Dose: 650 mg Al Hydrox/Mg Hydrox/Simethicone (Maalox) 30 ml PO Q6H PRN PRN Reason: Dyspepsia Stop: 01/05/19 12:37 Albuterol Sulfate (Albuterol 2.5mg/3ml Neb Ud) 2.5 mg HHN QIDRT [facility] Stop: 01/05/19 14:59 Last Admin: 11/11/18 11:32 Dose: 2.5 mg Alprazolam (Xanax) 0.25 mg PO Q6HR PRN; Protocol PRN Reason: Anxiety Stop: 01/05/19 20:19 Escitalopram Oxalate (Lexapro) 10 mg PO DAILY [facility]; Protocol Stop: 01/10/19 08:59 Last Admin: 11/11/18 08:35 Dose: 10 mg Guaifenesin (Robitussin) 200 mg PO Q4HR PRN PRN Reason: Cough or Congestion Stop: 01/05/19 12:37 Last Admin: 11/09/18 23:04 Dose: 200 mg Trimethoprim/Sulfamethoxazole (20 ml/ Dextrose) 520 mls @ 346.667 mls/hr IV Q8H [facility] Stop: 01/05/19 18:29 Last Admin: 11/11/18 10:44 Dose: 347 mls/hr Levofloxacin (Levaquin Pb) 750 mg in 150 mls @ 100 mls/hr IV Q24HR [facility] Stop: 11/12/18 20:29 Last Admin: 11/10/18 19:44 Dose: 100 mls/hr Potassium Chloride/Dextrose/Sod Cl (D5-0.9ns W/Kcl 20meq) 1,000 mls @ 75 mls/ hr IV .[id number] [facility] Stop: 01/08/19 12:59 Last Admin: 11/11/18 02:20 Dose: 75 mls/hr Piperacillin Sod/Tazobactam (Sod 4.5 gm/ Sodium Chloride) 100 mls @ 100 mls/hr IV Q8HR [facility] Stop: 01/08/19 12:59 Last Admin: 11/11/18 06:38 Dose: 100 mls/hr Ibuprofen (Motrin) 800 mg PO TID PRN PRN Reason: Pain (Moderate) Stop: 01/06/19 20:59 Ipratropium [place] (Atrovent Neb 0.5mg/2.5ml) 0.5 mg IH QIDRT [facility] Stop: 01/05/19 14:59 Last Admin: 11/11/18 11:32 Dose: 0.5 mg Lactobacillus Rhamnosus (Culturelle 15b) 1 each PO BID [facility] Stop: 01/07/19 16:59 Last Admin: 11/11/18 08:35 Dose: 1 each Miscellaneous (Probiotic Screen) 1 ea MC PRN PRN PRN Reason: PROTOCOL Stop: 01/10/19 11:29 Morphine Sulfate (Morphine) 2 mg IVP Q8H PRN PRN Reason: Pain (Severe) Stop: 01/05/19 12:37 Ondansetron HCl (Zofran) 4 mg IV Q8H PRN PRN Reason: Nausea / Vomiting Stop: 01/05/19 12:37 Last Admin: 11/08/18 02:05 Dose: 4 mg Pantoprazole Sodium (Protonix) 40 mg PO QDAC [facility] Stop: 01/05/19 16:29 Last Admin: 11/11/18 06:38 Dose: 40 mg Tramadol HCl (Ultram) 50 mg PO Q6HR PRN PRN Reason: Pain (Severe) Stop: 01/05/19 20:17 Last Admin: 11/08/18 18:25 Dose: 50 mg Zolpidem Tartrate (Ambien) 10 mg PO HS PRN PRN Reason: Insomnia Stop: 01/05/19 12:37 Last Admin: 11/08/18 20:17 Dose: 10 mg General: alert HEENT: NC/AT, PERRLA, EOMI Neck: Supple Lungs: rales, ronchi Cardiovascular: RRR, Normal S1, Normal S2, tachy Abdomen: soft, tender, positive bowel sound Extremities: excoriation Neurological: no change Internal Medicine Assmt/Plan - Assessment Assessment: ASSESSMENT AND PLAN: 1. Sepsis, atypical pneumonia, generalized rash. 2. Substance abuse, hyponatremia, tachycardia. pulm infiltrates tachycardia lbp leukopenia-better now wbc 21k - Plan Plan: The patient had a CT chest, which showed ill-defined multilobar infiltrates throughout the lung could be inflammatory in nature. We will empirically start the patient on broad-spectrum antibiotic, vancomycin, Zosyn, as well as Diflucan. We will send for HIV as well as hepatitis panel. We will refer the patient to Pulmonary and Infectious Disease as well as Renal. Continue on aggressive IV hydration. Case was discussed with the patient and mother as well as his sisters and nurse and sister's fiance. The patient prognosis is guarded. The patient to remain in ICU. We will continue monitoring the patient closely. The patient is a full code. dw family members at bedside and w dr jeronimo and sherita will do 2d echo dc steroid Nutritional Asmnt/Malnutr-PDOC - Dietary Evaluation Malnutrition Findings (Please click <Entered> for more info): Nutritional Asmnt/Malnutrition Start: 11/07/18 10: 55 Text: Status: Complete Freq: Protocol: Document 11/07/18 10:55 DANAE (Rec: 11/07/18 11:13 DANAE HARDIN- [id number]) Nutritional Asmnt/Malnutrition Patient General Information Nutritional Screening High Risk Diagnosis Respiratory Failure, dehydration Pertinent Medical Hx/Surgical Hx None Subjective Information Per H&P, patient positive for cocaine and marijuana. Spoke with patient's sister, who states he has a sore throat and prefers to eat cold foods right now. She also states he eats "kid foods", and likes snack foods. Current Diet Order/ Nutrition Support Regular Patient / S.O Not Indicated Pertinent Medications maalox, solu-medrol, abx, zofran, protonix Pertinent Labs (11/07) Na 126 (improved), glucose 277, Ca 8.2, albumin 2 .7 Nutritional Hx/Data Height 1.78 m Height (Calculated Centimeters) 177.8 Current Weight (lbs) 61.235 kg Weight (Calculated Kilograms) 61.2 Weight (Calculated Grams) 77558.0 [place] Body Weight 166 % [place] Body Weight 81 Body Mass Index (BMI) 19.3 Recent Weight Change No Weight Status Approriate GI Symptoms GI Symptoms None Last BM 11/06 x 2 Difficult in: None Food Allergies No Cultural/Ethnic/Faith Belief none indicated Usual diet at home Regular Skin Integrity/Comment: Cuco 16, Intact Current %PO Negligible < 25% Estimated Nutritional Goals BEE in Kcals: Using Current wt Calories/Kcals/Kg 61.3kg CBW 30-35 kcal/kg Kcals Calculated ~3758-6264 kcal/day Protein: Using Current wt Protein g/k.2-1.5 gm/kg Protein Calculated ~75-90 gm/day Fluid: ml ~4825-1761 ml/day (1 ml/kcal) Nutritional Problem 1. Problem Problem Inadequate oral intake realted to Etiology possible poor appetite aeb Signs/Symptoms: PO <25% of meals, 81% IBW Intervention/Recommendation Comments 1. Continue regular diet as tolerated by patient. 2. If patient remains hyperglycemic (on Solu-medrol) consider modifying to 60 gm CCHO diet at that time. 3. Encourage oral intake of meals and snacks. 4. Start Ensure Enlive TID with meals Expected Outcomes/Goals Expected Outcomes/Goals PO intake to meet >75% of nutritional needs, weight stability or trend toward ideal body weight, skin intact , nutrition related labs to approach WNL. F/U MR
--- NOTE | 2018-11-11 12:45 | Pathology Report ---
[id number] Collection Date: 11/07/2018 Surgeon: Dr. Dodie Wolfe Specimen Description: Bone marrow biopsy. Gross Description: Received in formalin is a 2.5 cm in length x 0.25 cm in diameter core biopsy of antonio bony tissue consistent with bone marrow core biopsy. Also received is a bone marrow aspiration clot, and these two specimens are sent for bone marrow processing and morphology. Two additional purple top tubes are received and sent for flow cytometry. There are also two green top tubes that are sent for cytogenetic studies. Diagnosis: Hypocellular Marrow showing severe myeloid hypoplasia. See attached [facility] reports for results of Flow Cytometry, FISH , and Bone marrow morphology (Case# [id number], [id number], [id number] and [id number]) Comment: There is no evidence for acute leukemia. The entire specimen was sent to [facility] for tissue processing and interpretation, as well as flow cytometry, FISH, and cytogenetic analysis (see attached reports from [facility] [place], [address] [place] [id number] ). Addendum: These findings are discussed with Dr. Omar Bai on 11/10/2018. Dr. Dodie Wolfe is also informed of these results. The differential diagnosis should include drug reaction/toxicity, viral syndrome and/or sepsis. Recommend Clinical correlation and followup with the results of Cytogenetic Analysis (pending). [facility]# [id number] [facility]
--- NOTE | 2018-11-11 12:54 | General Progress Note ---
Subjective - Review of Systems Service Date: 11/11/18 Subjective: started eating, weak, occ cough, ambulating Objective - Results Result Diagrams: 11/11/18 05:45 11/11/18 05:45 Recent Labs: Laboratory Last Values WBC 21.8 Th/cmm (4.8-10.8) H* D 11/11/18 05:45 RBC 4.27 Mil/cmm (4.30-5.70) L 11/11/18 05:45 Hgb 12.3 gm/dL (12-16) 11/11/18 05:45 Hct 37.4 % (41.0-60) L 11/11/18 05:45 MCV 87.7 fl (80-99) 11/11/18 05:45 MCH 28.8 pg (26.0-30.0) 11/11/18 05:45 MCHC Differential 32.9 pg (28.0-36.0) 11/11/18 05:45 RDW 13.8 % (11.5-20.0) 11/11/18 05:45 Plt Count 165 Th/cmm (150-400) 11/11/18 05:45 MPV 9.5 fl 11/11/18 05:45 Add Manual Diff YES 11/11/18 05:45 Band Neutrophils % 4 % (0-10) 11/11/18 05:45 Neutrophils (Manual) 79 % (40-80) 11/11/18 05:45 Lymphocytes 9 % (20-50) L 11/11/18 05:45 Monocytes 3 % (2-10) 11/11/18 05:45 Eosinophils 0 % (0-5) 11/11/18 05:45 Basophils 0 % (0-3) 11/11/18 05:45 Metamyelocytes 2 % (0-0) H 11/11/18 05:45 Myelocytes 3 % 11/11/18 05:45 Atypical Lymphocytes % 11/09/18 04:15 Platelet Estimate ADEQUATE (NORMAL) 11/10/18 04:30 Smear Path Review 11/11/18 05:45 Plt Count 158 Th/cmm (150-750) 11/09/18 04:15 PT 10.9 SECONDS (9.5-11.5) 11/11/18 05:45 INR 1.05 (0.5-1.4) 11/11/18 05:45 PTT (Actin FS) 31.3 SECONDS (26.0-38.0) 11/11/18 05:45 Fibrinogen 890.0 mg/dL (200.0-400.0) H 11/09/18 04:15 D-Dimer 2720 ng/mL (100-400) H 11/09/18 04:15 Lupus Anticoag aPTT 59.7 sec (0.0-51.9) H 11/06/18 12:00 dRVVT Screen 79.3 sec (0.0-47.0) H 11/06/18 12:00 dRVVT Confirm Seconds 1.7 ratio (0.8-1.2) H 11/06/18 12:00 dRVVT Mix 57.1 sec (0.0-47.0) H 11/06/18 12:00 dRVVT 50:50 58.1 sec (0.0-48.9) H 11/06/18 12:00 Hexagonal Phospholipid 19 sec (0-11) H 11/06/18 12:00 Lupus Anticoag Interp Comment: 11/06/18 12:00 Specimen Source Arterial 11/07/18 07:39 Sample Site Right Radial 11/07/18 07:39 pH 7.498 (7.35-7.45) H 11/07/18 07:39 pCO2 23.3 mmHg (35.0-45.0) L* 11/07/18 07:39 pO2 174.3 mmHg (80.0-100.0) H 11/07/18 07:39 HCO3 17.7 mEq/L (20.0-26.0) L 11/07/18 07:39 Base Excess -3.4 mEq/L (-3.0-3.0) L 11/07/18 07:39 O2 Saturation 99.3 % (92.0-100.0) 11/07/18 07:39 Shiv Test Positive 11/07/18 07:39 Vent Rate NA 11/07/18 07:39 Inspired O2 32 11/07/18 07:39 Tidal Volume NA 11/07/18 07:39 PEEP NA 11/07/18 07:39 Pressure (ins/psv/peep) NA 11/07/18 07:39 Critical Value JG 11/07/18 07:39 Sodium 131 mEq/L (136-145) L 11/11/18 05:45 Potassium 4.1 mEq/L (3.5-5.1) 11/11/18 05:45 Chloride 100 mEq/L (98-107) 11/11/18 05:45 Carbon Dioxide 23.1 mEq/L (21.0-31.0) 11/11/18 05:45 Anion Gap 12.0 (7.0-16.0) 11/11/18 05:45 BUN 16 mg/dL (7-25) 11/11/18 05:45 Creatinine 0.7 mg/dL (0.7-1.3) 11/11/18 05:45 Est GFR ( Amer) > 60.0 ml/min (>90) 11/11/18 05:45 Est GFR (Non-Af Amer) > 60.0 ml/min 11/11/18 05:45 BUN/Creatinine Ratio 22.9 11/11/18 05:45 Glucose 130 mg/dL (70-105) H 11/11/18 05:45 POC Glucose 102 MG/DL (70 - 105) 11/09/18 11:58 Plasma/Ser Osmolality 278 mOsmol/kg (275-295) 11/08/18 05:00 Whole Bld Lactic Acid 1.35 mmol/L (0.60-1.99) 11/06/18 12:00 Uric Acid 1.6 mg/dL (4.4-7.6) L 11/07/18 05:00 Calcium 8.1 mg/dL (8.6-10.3) L 11/11/18 05:45 Magnesium 2.2 mg/dL (1.9-2.7) 11/11/18 05:45 Total Bilirubin 0.4 mg/dL (0.3-1.0) 11/11/18 05:45 AST 35 U/L (13-39) 11/11/18 05:45 ALT 60 U/L (7-52) H 11/11/18 05:45 Alkaline Phosphatase 48 U/L (34-104) 11/11/18 05:45 Lactate Dehydrogenase 119 U/L (140-271) L 11/06/18 18:32 Creatine Kinase 233 U/L (30-223) H 11/06/18 18:32 CK-MB (CK-2) 4.6 ng/mL (0.6-6.3) 11/06/18 18:32 Troponin I 0.03 ng/mL (0.01-0.05) 11/06/18 09:40 Total Protein 4.9 gm/dL (6.0-8.3) L 11/11/18 05:45 Albumin 2.6 gm/dL (4.2-5.5) L 11/11/18 05:45 Globulin 2.3 gm/dL 11/11/18 05:45 Albumin/Globulin Ratio 1.1 (1.0-1.8) 11/11/18 05:45 TSH 1.14 uIU/ml (0.34-5.60) 11/06/18 09:40 Urine Source CLEAN C 11/08/18 14:22 Urine Color YELLOW 11/08/18 14:22 Urine Clarity CLEAR (CLEAR) 11/08/18 14:22 Urine pH 6.5 (4.6 - 8.0) 11/08/18 14:22 Ur Specific [place] 1.020 (1.005-1.030) 11/08/18 14:22 Urine Protein TRACE mg/dL (NEGATIVE) 11/08/18 14:22 Urine Glucose (UA) >=1000 mg/dL (NEGATIVE) H 11/08/18 14:22 Urine Ketones NEGATIVE mg/dL (NEGATIVE) 11/08/18 14:22 Urine Blood SMALL (NEGATIVE) H 11/08/18 14:22 Urine Nitrate NEGATIVE (NEGATIVE) 11/08/18 14:22 Urine Bilirubin NEGATIVE (NEGATIVE) 11/08/18 14:22 Urine Urobilinogen 0.2 E.U./dL (0.2 - 1.0) 11/08/18 14:22 Ur Leukocyte Esterase NEGATIVE (NEGATIVE) 11/08/18 14:22 Urine RBC 0-2 /hpf (0-5) H 11/08/18 14:22 Urine WBC 0-2 /hpf (0-5) 11/08/18 14:22 Ur Epithelial Cells NONE SEEN /lpf (FEW) 11/08/18 14:22 Amorphous Sediment FEW URATES (NONE SEEN) 11/08/18 14:22 Urine Bacteria NONE SEEN /hpf (NONE SEEN) 11/08/18 14:22 Ur Random Sodium 32 mmol/L 11/07/18 10:00 Stool Occult Blood NEGATIVE (NEGATIVE) 11/08/18 17:50 Vancomycin Trough 11.2 ug/mL (5-10) H 11/09/18 08:00 Urine Opiates Screen NEGATIVE (NEGATIVE) 11/06/18 10:22 Urine Methadone Screen NEGATIVE (NEGATIVE) 11/06/18 10:22 Ur Barbiturates Screen NEGATIVE (NEGATIVE) 11/06/18 10:22 Ur Tricyclics Screen NEGATIVE (NEGATIVE) 11/06/18 10:22 Ur Phencyclidine Scrn NEGATIVE (NEGATIVE) 11/06/18 10:22 Amphetamines Screen NEGATIVE (NEGATIVE) 11/06/18 10:22 U Methamphetamines Scrn NEGATIVE (NEGATIVE) 11/06/18 10:22 U Benzodiazepines Scrn NEGATIVE (NEGATIVE) 11/06/18 10:22 U Cocaine Metab Screen POSITIVE (NEGATIVE) H 11/06/18 10:22 U Cannabinoids Screen POSITIVE (NEGATIVE) H 11/06/18 10:22 RPR NONREACTIVE (NONREACTIVE) 11/06/18 09:40 Hepatitis A IgM Ab Negative (Negative) 11/06/18 12:00 Hep Bs Antigen Negative (Negative) 11/06/18 12:00 Hep B Core IgM Ab Negative (Negative) 11/06/18 12:00 Hepatitis C Antibody <0.1 s/co ratio (0.0-0.9) 11/06/18 12:00 HIV 1&2 Antibody Screen NEGATIVE (NEG) 11/06/18 10:22 Influenza A (Rapid) NEG FOR INF A 11/08/18 13:00 Influenza B (Rapid) NEG FOR INF B 11/08/18 13:00 L.pneumophila Antigen Negative (Negative) 11/07/18 10:00 Mycoplasma pneumon IgG <100 U/mL (0-99) 11/07/18 06:50 - Physical Exam Vitals and I&O: Vital Signs Temp 97.8 F 11/11/18 12:05 Pulse 83 11/11/18 12:05 Resp 19 11/11/18 12:05 BP 138/79 11/11/18 12:05 Pulse Ox 95 11/11/18 12:05 Intake & Output 11/10/18 11/11/18 11/11/18 18:59 06:59 18:59 Intake Total 620 1140 Balance 620 1140 Intake: Intake, IV Amount 620 1140 Piperacillin Sodium/ 100 100 Tazobact 4.5 gm In Sodium Chloride 0.9% 100 ml @ 100 mls/hr IV Q8HR [facility] Rx #:[id number] Sulfamethoxazole/TMP 20 520 1040 ml In Dextrose 5% 500 ml @ 346.667 mls/hr IV Q8H [facility] Rx#:[id number] Active Medications: Current Medications Acetaminophen (Tylenol) 650 mg PO Q4H PRN PRN Reason: Pain Or Fever above 101 Stop: 01/05/19 12:37 Last Admin: 11/08/18 16:37 Dose: 650 mg Al Hydrox/Mg Hydrox/Simethicone (Maalox) 30 ml PO Q6H PRN PRN Reason: Dyspepsia Stop: 01/05/19 12:37 Albuterol Sulfate (Albuterol 2.5mg/3ml Neb Ud) 2.5 mg HHN QIDRT [facility] Stop: 01/05/19 14:59 Last Admin: 11/11/18 11:32 Dose: 2.5 mg Alprazolam (Xanax) 0.25 mg PO Q6HR PRN; Protocol PRN Reason: Anxiety Stop: 01/05/19 20:19 Escitalopram Oxalate (Lexapro) 10 mg PO DAILY [facility]; Protocol Stop: 01/10/19 08:59 Last Admin: 11/11/18 08:35 Dose: 10 mg Guaifenesin (Robitussin) 200 mg PO Q4HR PRN PRN Reason: Cough or Congestion Stop: 01/05/19 12:37 Last Admin: 11/09/18 23:04 Dose: 200 mg Trimethoprim/Sulfamethoxazole (20 ml/ Dextrose) 520 mls @ 346.667 mls/hr IV Q8H [facility] Stop: 01/05/19 18:29 Last Admin: 11/11/18 10:44 Dose: 347 mls/hr Levofloxacin (Levaquin Pb) 750 mg in 150 mls @ 100 mls/hr IV Q24HR [facility] Stop: 11/12/18 20:29 Last Admin: 11/10/18 19:44 Dose: 100 mls/hr Potassium Chloride/Dextrose/Sod Cl (D5-0.9ns W/Kcl 20meq) 1,000 mls @ 75 mls/ hr IV .[id number] [facility] Stop: 01/08/19 12:59 Last Admin: 11/11/18 02:20 Dose: 75 mls/hr Piperacillin Sod/Tazobactam (Sod 4.5 gm/ Sodium Chloride) 100 mls @ 100 mls/hr IV Q8HR [facility] Stop: 01/08/19 12:59 Last Admin: 11/11/18 06:38 Dose: 100 mls/hr Ibuprofen (Motrin) 800 mg PO TID PRN PRN Reason: Pain (Moderate) Stop: 01/06/19 20:59 Ipratropium [place] (Atrovent Neb 0.5mg/2.5ml) 0.5 mg IH QIDRT [facility] Stop: 01/05/19 14:59 Last Admin: 11/11/18 11:32 Dose: 0.5 mg Lactobacillus Rhamnosus (Culturelle 15b) 1 each PO BID [facility] Stop: 01/07/19 16:59 Last Admin: 11/11/18 08:35 Dose: 1 each Miscellaneous (Probiotic Screen) 1 ea PRN PRN PRN Reason: PROTOCOL Stop: 01/10/19 11:29 Morphine Sulfate (Morphine) 2 mg IVP Q8H PRN PRN Reason: Pain (Severe) Stop: 01/05/19 12:37 Ondansetron HCl (Zofran) 4 mg IV Q8H PRN PRN Reason: Nausea / Vomiting Stop: 01/05/19 12:37 Last Admin: 11/08/18 02:05 Dose: 4 mg Pantoprazole Sodium (Protonix) 40 mg PO QDAC [facility] Stop: 01/05/19 16:29 Last Admin: 11/11/18 06:38 Dose: 40 mg Tramadol HCl (Ultram) 50 mg PO Q6HR PRN PRN Reason: Pain (Severe) Stop: 01/05/19 20:17 Last Admin: 11/08/18 18:25 Dose: 50 mg Zolpidem Tartrate (Ambien) 10 mg PO HS PRN PRN Reason: Insomnia Stop: 01/05/19 12:37 Last Admin: 11/08/18 20:17 Dose: 10 mg General: Alert, No acute distress HEENT: Atraumatic, Mucous membr. 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 Severe dehydration Severe Sepsis 2/2 UTI, ?CAP Resp Alkalosis Multi focal Infiltrates - Plan Plan: Lab - Result Diagrams 11/07/18 05:00 11/07/18 05:00 Current Medications Acetaminophen (Tylenol) 650 mg PO Q4H PRN PRN Reason: Pain Or Fever above 101 Stop: 01/05/19 12:37 Last Admin: 11/06/18 21:46 Dose: 650 mg Al Hydrox/Mg Hydrox/Simethicone (Maalox) 30 ml PO Q6H PRN PRN Reason: Dyspepsia Stop: 01/05/19 12:37 Albuterol Sulfate (Albuterol 2.5mg/3ml Neb Ud) 2.5 mg HHN QIDRT [facility] Stop: 01/05/19 14:59 Last Admin: 11/07/18 10:09 Dose: 2.5 mg Alprazolam (Xanax) 0.25 mg PO Q8HR PRN; Protocol PRN Reason: Anxiety Stop: 01/05/19 20:19 Last Admin: 11/06/18 21:47 Dose: 0.25 mg Filgrastim (Neupogen) 480 mcg SUBQ DAILY [facility] Stop: 01/05/19 18:44 Last Admin: 11/07/18 13:29 Dose: 480 mcg Guaifenesin (Robitussin) 200 mg PO Q4HR PRN PRN Reason: Cough or Congestion Stop: 01/05/19 12:37 Heparin Sodium (Porcine) (Heparin) 5,000 units SUBQ Q12HR [facility] Stop: 01/05/19 20:59 Last Admin: 11/07/18 10:16 Dose: 5,000 units Dextrose/Sodium Chloride (D5-0.9%Ns) 1,000 mls @ 125 mls/hr IV .Q8H [facility] Stop: 01/05/19 12:44 Last Admin: 11/07/18 04:45 Dose: 125 mls/hr Fluconazole/Sodium Chloride (Diflucan) 400 mg in 200 mls @ 100 mls/hr IV Q24HR [facility] Stop: 01/05/19 13:59 Last Infusion: 11/06/18 16:15 Dose: Infused Vancomycin HCl 1 gm/ Sodium (Chloride) 250 mls @ 166.667 mls/hr IV Q6H [facility] Stop: 01/05/19 14:59 Last Admin: 11/07/18 08:50 Dose: 165 mls/hr Trimethoprim/Sulfamethoxazole (20 ml/ Dextrose) 520 mls @ 346.667 mls/hr IV Q8H [facility] Stop: 01/05/19 18:29 Last Admin: 11/07/18 10:15 Dose: 346 mls/hr Levofloxacin (Levaquin Pb) 750 mg in 150 mls @ 100 mls/hr IV Q24HR [facility] Stop: 11/12/18 20:29 Last Infusion: 11/06/18 21:25 Dose: Infused Meropenem 2 gm/ Sodium (Chloride) 100 mls @ 100 mls/hr IV Q8HR@0300,1100,1900 [facility] Stop: 01/05/19 20:59 Last Admin: 11/07/18 13:27 Dose: 100 mls/hr Ipratropium [place] (Atrovent Neb 0.5mg/2.5ml) 0.5 mg IH QIDRT [facility] Stop: 01/05/19 14:59 Last Admin: 11/07/18 10:09 Dose: 0.5 mg Methylprednisolone Sodium Succinate (Solu-Medrol) 80 mg IVP Q8HR [facility] Stop: 01/05/19 12:59 Last Admin: 11/07/18 13:27 Dose: 80 mg Miscellaneous (Vancomycin Iv Per Pharmacy) 1 ea [facility] PRN PRN PRN Reason: VANCOMYCIN IV PER RX Stop: 01/05/19 13:19 Morphine Sulfate (Morphine) 2 mg IVP Q4H PRN PRN Reason: Pain (Severe) Stop: 01/05/19 12:37 Last Admin: 11/07/18 04:45 Dose: 2 mg Ondansetron HCl (Zofran) 4 mg IV Q8H PRN PRN Reason: Nausea / Vomiting Stop: 01/05/19 12:37 Pantoprazole Sodium (Protonix) 40 mg PO QDAC [facility] Stop: 01/05/19 16:29 Last Admin: 11/07/18 06:46 Dose: 40 mg Tramadol HCl (Ultram) 50 mg PO Q6HR PRN PRN Reason: Pain (Moderate) Stop: 01/05/19 20:17 Last Admin: 11/07/18 10:15 Dose: 50 mg Zolpidem Tartrate (Ambien) 10 mg PO HS PRN PRN Reason: Insomnia Stop: 01/05/19 12:3 Lab - Result Diagrams 11/11/18 05:45 11/11/18 05:45 Na stable @ 131 WBC now up to 21.8 f/u electrolytes, cbc continue IVF replace K Nutritional Asmnt/Malnutr-PDOC - Dietary Evaluation Malnutrition Findings (Please click <Entered> for more info): Nutritional Asmnt/Malnutrition Start: 11/07/18 10: 55 Text: Status: Complete Freq: Protocol: Document 11/07/18 10:55 DANAE (Rec: 11/07/18 11:13 DANAE HARDIN- [id number]) Nutritional Asmnt/Malnutrition Patient General Information Nutritional Screening High Risk Diagnosis Respiratory Failure, dehydration Pertinent Medical Hx/Surgical Hx None Subjective Information Per H&P, patient positive for cocaine and marijuana. Spoke with patient's sister, who states he has a sore throat and prefers to eat cold foods right now. She also states he eats "kid foods", and likes snack foods. Current Diet Order/ Nutrition Support Regular Patient / S.O Not Indicated Pertinent Medications maalox, solu-medrol, abx, zofran, protonix Pertinent Labs (11/07) Na 126 (improved), glucose 277, Ca 8.2, albumin 2 .7 Nutritional Hx/Data Height 1.78 m Height (Calculated Centimeters) 177.8 Current Weight (lbs) 61.235 kg Weight (Calculated Kilograms) 61.2 Weight (Calculated Grams) 03684.0 [place] Body Weight 166 % [place] Body Weight 81 Body Mass Index (BMI) 19.3 Recent Weight Change No Weight Status Approriate GI Symptoms GI Symptoms None Last BM 11/06 x 2 Difficult in: None Food Allergies No Cultural/Ethnic/Sikh Belief none indicated Usual diet at home Regular Skin Integrity/Comment: Cuco 16, Intact Current %PO Negligible < 25% Estimated Nutritional Goals BEE in Kcals: Using Current wt Calories/Kcals/Kg 61.3kg CBW 30-35 kcal/kg Kcals Calculated ~0469-7485 kcal/day Protein: Using Current wt Protein g/k.2-1.5 gm/kg Protein Calculated ~75-90 gm/day Fluid: ml ~1980-8024 ml/day (1 ml/kcal) Nutritional Problem 1. Problem Problem Inadequate oral intake realted to Etiology possible poor appetite aeb Signs/Symptoms: PO <25% of meals, 81% IBW Intervention/Recommendation Comments 1. Continue regular diet as tolerated by patient. 2. If patient remains hyperglycemic (on Solu-medrol) consider modifying to 60 gm CCHO diet at that time. 3. Encourage oral intake of meals and snacks. 4. Start Ensure Enlive TID with meals Expected Outcomes/Goals Expected Outcomes/Goals PO intake to meet >75% of nutritional needs, weight stability or trend toward ideal body weight, skin intact , nutrition related labs to approach WNL. F/U MR
--- NOTE | 2018-11-11 14:19 | Cardiology ---
11/09/2018 PATIENT OF: Dr. Bai. M-MODE ECHOCARDIOGRAM: Mitral valve, anterior leaflet of mitral valve shows normal excursion, EF velocity. Posterior leaflet of the mitral valve shows normal excursion. Left ventricular posterior wall shows increased thickness, normal excursion. Interventricular septum shows increased thickness, normal excursion, hypertrophy of the left ventricle, ejection fraction 54%. Left atrium normal. Aortic root shows normal dimension, normal excursion of aortic leaflets. CONCLUSION: Hypertrophy of the left ventricle, ejection fraction 54%. 2D ECHO: Long axis view showed normal sized left ventricle with hypertrophy of the left ventricle. Left atrium normal. Aortic root shows normal dimension, normal excursion of aortic leaflets. Short axis view of mitral valve normal. Short axis view of aortic valve normal. Apical four chamber view showed normal sized left ventricle with hypertrophy of the left ventricle. Left atrium normal. Right ventricular cavity, right atrium normal, no pericardial effusion. Doppler study shows moderate mitral regurgitation, mild tricuspid regurgitation, mild pulmonary hypertension, right ventricular systolic pressure 45 mmHg. CONCLUSION: Hypertrophy of the left ventricle, ejection fraction 54%, moderate mitral regurgitation, mild tricuspid regurgitation, mild pulmonary hypertension. JOB# [id number]
--- NOTE | 2018-11-11 19:00 | Progress Notes ---
DATE: 11/10/2018 PULMONARY PROGRESS NOTE SUBJECTIVE: The patient appears to be doing okay. No distress. OBJECTIVE: VITAL SIGNS: Temperature 98.2, pulse 90, respiration is 17, blood pressure 120/71, saturation 94%-96%. CHEST: Good breath sounds. No wheezing, no crackles. HEART: Regular rate and rhythm. ABDOMEN: Soft, no tenderness. EXTREMITIES: No edema. LABORATORY DATA: WBC 6.8 up from 1.0, hemoglobin 11.2, hematocrit 33.4, platelets is 148. Sodium 132, potassium 3.7, BUN 19, creatinine 0.7. IMPRESSION: 1. Respiratory failure. 2. Multilobar pneumonia. 3. Cocaine abuse, multi-substance abuse. 4. Leukopenia. PLAN: IV antibiotics, appears to be improving. White count back to normal. Oxygenation is good. Follow up chest x-ray. JOB# [id number]
[2018-11-11] MEDS: Levofloxacin 750mg/150mL 750 MG/150 ML BAG IV SCH (19:26)
--- NOTE | 2018-11-12 02:35 | Infectious Disease Prog Note ---
Infectious Disease Subjective - Review of Systems Service Date: 11/11/18 Subjective: weak, doing better, Infectious Disease Objective - Results Result Diagrams: 11/11/18 05:45 11/11/18 05:45 Recent Labs: Laboratory Last Values WBC 21.8 Th/cmm (4.8-10.8) H* D 11/11/18 05:45 RBC 4.27 Mil/cmm (4.30-5.70) L 11/11/18 05:45 Hgb 12.3 gm/dL (12-16) 11/11/18 05:45 Hct 37.4 % (41.0-60) L 11/11/18 05:45 MCV 87.7 fl (80-99) 11/11/18 05:45 MCH 28.8 pg (26.0-30.0) 11/11/18 05:45 MCHC Differential 32.9 pg (28.0-36.0) 11/11/18 05:45 RDW 13.8 % (11.5-20.0) 11/11/18 05:45 Plt Count 165 Th/cmm (150-400) 11/11/18 05:45 MPV 9.5 fl 11/11/18 05:45 Add Manual Diff YES 11/11/18 05:45 Band Neutrophils % 4 % (0-10) 11/11/18 05:45 Neutrophils (Manual) 79 % (40-80) 11/11/18 05:45 Lymphocytes 9 % (20-50) L 11/11/18 05:45 Monocytes 3 % (2-10) 11/11/18 05:45 Eosinophils 0 % (0-5) 11/11/18 05:45 Basophils 0 % (0-3) 11/11/18 05:45 Metamyelocytes 2 % (0-0) H 11/11/18 05:45 Myelocytes 3 % 11/11/18 05:45 Atypical Lymphocytes % 11/09/18 04:15 Platelet Estimate ADEQUATE (NORMAL) 11/10/18 04:30 Smear Path Review 11/11/18 05:45 Plt Count 158 Th/cmm (150-750) 11/09/18 04:15 PT 10.9 SECONDS (9.5-11.5) 11/11/18 05:45 INR 1.05 (0.5-1.4) 11/11/18 05:45 PTT (Actin FS) 31.3 SECONDS (26.0-38.0) 11/11/18 05:45 Fibrinogen 890.0 mg/dL (200.0-400.0) H 11/09/18 04:15 D-Dimer 2720 ng/mL (100-400) H 11/09/18 04:15 Lupus Anticoag aPTT 59.7 sec (0.0-51.9) H 11/06/18 12:00 dRVVT Screen 79.3 sec (0.0-47.0) H 11/06/18 12:00 dRVVT Confirm Seconds 1.7 ratio (0.8-1.2) H 11/06/18 12:00 dRVVT Mix 57.1 sec (0.0-47.0) H 11/06/18 12:00 dRVVT 50:50 58.1 sec (0.0-48.9) H 11/06/18 12:00 Hexagonal Phospholipid 19 sec (0-11) H 11/06/18 12:00 Lupus Anticoag Interp Comment: 11/06/18 12:00 Specimen Source Arterial 11/07/18 07:39 Sample Site Right Radial 11/07/18 07:39 pH 7.498 (7.35-7.45) H 11/07/18 07:39 pCO2 23.3 mmHg (35.0-45.0) L* 11/07/18 07:39 pO2 174.3 mmHg (80.0-100.0) H 11/07/18 07:39 HCO3 17.7 mEq/L (20.0-26.0) L 11/07/18 07:39 Base Excess -3.4 mEq/L (-3.0-3.0) L 11/07/18 07:39 O2 Saturation 99.3 % (92.0-100.0) 11/07/18 07:39 Shiv Test Positive 11/07/18 07:39 Vent Rate NA 11/07/18 07:39 Inspired O2 32 11/07/18 07:39 Tidal Volume NA 11/07/18 07:39 PEEP NA 11/07/18 07:39 Pressure (ins/psv/peep) NA 11/07/18 07:39 Critical Value JG 11/07/18 07:39 Sodium 131 mEq/L (136-145) L 11/11/18 05:45 Potassium 4.1 mEq/L (3.5-5.1) 11/11/18 05:45 Chloride 100 mEq/L (98-107) 11/11/18 05:45 Carbon Dioxide 23.1 mEq/L (21.0-31.0) 11/11/18 05:45 Anion Gap 12.0 (7.0-16.0) 11/11/18 05:45 BUN 16 mg/dL (7-25) 11/11/18 05:45 Creatinine 0.7 mg/dL (0.7-1.3) 11/11/18 05:45 Est GFR ( Amer) > 60.0 ml/min (>90) 11/11/18 05:45 Est GFR (Non-Af Amer) > 60.0 ml/min 11/11/18 05:45 BUN/Creatinine Ratio 22.9 11/11/18 05:45 Glucose 130 mg/dL (70-105) H 11/11/18 05:45 POC Glucose 102 MG/DL (70 - 105) 11/09/18 11:58 Plasma/Ser Osmolality 278 mOsmol/kg (275-295) 11/08/18 05:00 Whole Bld Lactic Acid 1.35 mmol/L (0.60-1.99) 11/06/18 12:00 Uric Acid 1.6 mg/dL (4.4-7.6) L 11/07/18 05:00 Calcium 8.1 mg/dL (8.6-10.3) L 11/11/18 05:45 Magnesium 2.2 mg/dL (1.9-2.7) 11/11/18 05:45 Total Bilirubin 0.4 mg/dL (0.3-1.0) 11/11/18 05:45 AST 35 U/L (13-39) 11/11/18 05:45 ALT 60 U/L (7-52) H 11/11/18 05:45 Alkaline Phosphatase 48 U/L (34-104) 11/11/18 05:45 Lactate Dehydrogenase 119 U/L (140-271) L 11/06/18 18:32 Creatine Kinase 233 U/L (30-223) H 11/06/18 18:32 CK-MB (CK-2) 4.6 ng/mL (0.6-6.3) 11/06/18 18:32 Troponin I 0.03 ng/mL (0.01-0.05) 11/06/18 09:40 Total Protein 4.9 gm/dL (6.0-8.3) L 11/11/18 05:45 Albumin 2.6 gm/dL (4.2-5.5) L 11/11/18 05:45 Globulin 2.3 gm/dL 11/11/18 05:45 Albumin/Globulin Ratio 1.1 (1.0-1.8) 11/11/18 05:45 TSH 1.14 uIU/ml (0.34-5.60) 11/06/18 09:40 Urine Source CLEAN C 11/08/18 14:22 Urine Color YELLOW 11/08/18 14:22 Urine Clarity CLEAR (CLEAR) 11/08/18 14:22 Urine pH 6.5 (4.6 - 8.0) 11/08/18 14:22 Ur Specific [place] 1.020 (1.005-1.030) 11/08/18 14:22 Urine Protein TRACE mg/dL (NEGATIVE) 11/08/18 14:22 Urine Glucose (UA) >=1000 mg/dL (NEGATIVE) H 11/08/18 14:22 Urine Ketones NEGATIVE mg/dL (NEGATIVE) 11/08/18 14:22 Urine Blood SMALL (NEGATIVE) H 11/08/18 14:22 Urine Nitrate NEGATIVE (NEGATIVE) 11/08/18 14:22 Urine Bilirubin NEGATIVE (NEGATIVE) 11/08/18 14:22 Urine Urobilinogen 0.2 E.U./dL (0.2 - 1.0) 11/08/18 14:22 Ur Leukocyte Esterase NEGATIVE (NEGATIVE) 11/08/18 14:22 Urine RBC 0-2 /hpf (0-5) H 11/08/18 14:22 Urine WBC 0-2 /hpf (0-5) 11/08/18 14:22 Ur Epithelial Cells NONE SEEN /lpf (FEW) 11/08/18 14:22 Amorphous Sediment FEW URATES (NONE SEEN) 11/08/18 14:22 Urine Bacteria NONE SEEN /hpf (NONE SEEN) 11/08/18 14:22 Ur Random Sodium 32 mmol/L 11/07/18 10:00 Stool Occult Blood NEGATIVE (NEGATIVE) 11/08/18 17:50 Vancomycin Trough 11.2 ug/mL (5-10) H 11/09/18 08:00 Urine Opiates Screen NEGATIVE (NEGATIVE) 11/06/18 10:22 Urine Methadone Screen NEGATIVE (NEGATIVE) 11/06/18 10:22 Ur Barbiturates Screen NEGATIVE (NEGATIVE) 11/06/18 10:22 Ur Tricyclics Screen NEGATIVE (NEGATIVE) 11/06/18 10:22 Ur Phencyclidine Scrn NEGATIVE (NEGATIVE) 11/06/18 10:22 Amphetamines Screen NEGATIVE (NEGATIVE) 11/06/18 10:22 U Methamphetamines Scrn NEGATIVE (NEGATIVE) 11/06/18 10:22 U Benzodiazepines Scrn NEGATIVE (NEGATIVE) 11/06/18 10:22 U Cocaine Metab Screen POSITIVE (NEGATIVE) H 11/06/18 10:22 U Cannabinoids Screen POSITIVE (NEGATIVE) H 11/06/18 10:22 RPR NONREACTIVE (NONREACTIVE) 11/06/18 09:40 Coccidioides Ab Negative (Neg:<1:2) 11/07/18 05:00 Hepatitis A IgM Ab Negative (Negative) 11/06/18 12:00 Hep Bs Antigen Negative (Negative) 11/06/18 12:00 Hep B Core IgM Ab Negative (Negative) 11/06/18 12:00 Hepatitis C Antibody <0.1 s/co ratio (0.0-0.9) 11/06/18 12:00 HIV 1&2 Antibody Screen NEGATIVE (NEG) 11/06/18 10:22 Influenza A (Rapid) NEG FOR INF A 11/08/18 13:00 Influenza B (Rapid) NEG FOR INF B 11/08/18 13:00 L.pneumophila Antigen Negative (Negative) 11/07/18 10:00 Mycoplasma pneumon IgG <100 U/mL (0-99) 11/07/18 06:50 - Physical Exam Vitals and I&O: Vital Signs Temp 98.9 F 11/11/18 16:00 Pulse 106 11/11/18 19:46 Resp 18 11/11/18 22:00 BP 133/77 11/11/18 16:00 Pulse Ox 95 11/11/18 19:46 Intake & Output 11/11/18 11/11/18 11/12/18 06:59 18:59 06:59 Intake Total 1290 1520 Balance 1290 1520 Weight (lbs) 68.492 kg Intake: Intake, IV Amount 1290 720 Levofloxacin 750mg/150mL 150 750 mg In 150 ml @ 100 mls/hr IV Q24HR [facility] Rx#: [id number] Piperacillin Sodium/ 100 200 Tazobact 4.5 gm In Sodium Chloride 0.9% 100 ml @ 100 mls/hr IV Q8HR [facility] Rx #:[id number] Sulfamethoxazole/TMP 20 1040 520 ml In Dextrose 5% 500 ml @ 346.667 mls/hr IV Q8H [facility] Rx#:[id number] Oral 800 Other: # Voids 8 # Bowel Movements 2 Weight Source Bedscale Active Medications: Current Medications Acetaminophen (Tylenol) 650 mg PO Q4H PRN PRN Reason: Pain Or Fever above 101 Stop: 01/05/19 12:37 Last Admin: 11/08/18 16:37 Dose: 650 mg Al Hydrox/Mg Hydrox/Simethicone (Maalox) 30 ml PO Q6H PRN PRN Reason: Dyspepsia Stop: 01/05/19 12:37 Albuterol Sulfate (Albuterol 2.5mg/3ml Neb Ud) 2.5 mg HHN QIDRT [facility] Stop: 01/05/19 14:59 Last Admin: 11/11/18 18:52 Dose: 2.5 mg Alprazolam (Xanax) 0.25 mg PO Q6HR PRN; Protocol PRN Reason: Anxiety Stop: 01/05/19 20:19 Escitalopram Oxalate (Lexapro) 10 mg PO DAILY [facility]; Protocol Stop: 01/10/19 08:59 Last Admin: 11/11/18 08:35 Dose: 10 mg Guaifenesin (Robitussin) 200 mg PO Q4HR PRN PRN Reason: Cough or Congestion Stop: 01/05/19 12:37 Last Admin: 11/09/18 23:04 Dose: 200 mg Trimethoprim/Sulfamethoxazole (20 ml/ Dextrose) 520 mls @ 346.667 mls/hr IV Q8H [facility] Stop: 01/05/19 18:29 Last Admin: 11/11/18 17:30 Dose: 347 mls/hr Potassium Chloride/Dextrose/Sod Cl (D5-0.9ns W/Kcl 20meq) 1,000 mls @ 75 mls/ hr IV .[id number] [facility] Stop: 01/08/19 12:59 Last Admin: 11/11/18 02:20 Dose: 75 mls/hr Piperacillin Sod/Tazobactam (Sod 4.5 gm/ Sodium Chloride) 100 mls @ 100 mls/hr IV Q8HR [facility] Stop: 01/08/19 12:59 Last Admin: 11/11/18 22:14 Dose: 100 mls/hr Ibuprofen (Motrin) 800 mg PO TID PRN PRN Reason: Pain (Moderate) Stop: 01/06/19 20:59 Ipratropium [place] (Atrovent Neb 0.5mg/2.5ml) 0.5 mg IH QIDRT [facility] Stop: 01/05/19 14:59 Last Admin: 11/11/18 18:52 Dose: 0.5 mg Lactobacillus Rhamnosus (Culturelle 15b) 1 each PO BID [facility] Stop: 01/07/19 16:59 Last Admin: 11/11/18 16:01 Dose: 1 each Miscellaneous (Probiotic Screen) 1 ea MC PRN PRN PRN Reason: PROTOCOL Stop: 01/10/19 11:29 Morphine Sulfate (Morphine) 2 mg IVP Q8H PRN PRN Reason: Pain (Severe) Stop: 01/05/19 12:37 Ondansetron HCl (Zofran) 4 mg IV Q8H PRN PRN Reason: Nausea / Vomiting Stop: 01/05/19 12:37 Last Admin: 11/08/18 02:05 Dose: 4 mg Pantoprazole Sodium (Protonix) 40 mg PO QDAC [facility] Stop: 01/05/19 16:29 Last Admin: 11/11/18 06:38 Dose: 40 mg Tramadol HCl (Ultram) 50 mg PO Q6HR PRN PRN Reason: Pain (Severe) Stop: 01/05/19 20:17 Last Admin: 11/08/18 18:25 Dose: 50 mg Zolpidem Tartrate (Ambien) 10 mg PO HS PRN PRN Reason: Insomnia Stop: 01/05/19 12:37 Last Admin: 11/08/18 20:17 Dose: 10 mg General: no acute distress, cachectic HEENT: atraumatic, normocephalic, PERRLA, EOMI Neck: supple, no thyromegaly Cardiovascular: S1S2, regular Lungs: clear to auscultation bilaterally, clear to percussion Abdomen: soft, no tender, no distended, no hepatomegaly Extremities: no cyanosis, no clubbing, no edema Neurological: awake, alert, oriented, CN 2-12 intact Skin: intact Infectious Disease Assmt/Plan - Assessment Assessment: 1. Severe neutropenia. improving WBC 0.3>1K. 2. Extensive pneumonia, both lung, inflammatory versus infectious. 3. Pustules. 4. Hyponatremia. 5. Sepsis. 6. Respiratory failure improved. - Plan Plan: Continue Zosyn. dc bactrim and levaquin. Nutritional Asmnt/Malnutr-PDOC - Dietary Evaluation Malnutrition Findings (Please click <Entered> for more info): Nutritional Asmnt/Malnutrition Start: 11/07/18 10: 55 Text: Status: Complete Freq: Protocol: Document 11/07/18 10:55 DANAE (Rec: 11/07/18 11:13 MMGÉNESIS LASHAWN FN) Nutritional Asmnt/Malnutrition Patient General Information Nutritional Screening High Risk Diagnosis Respiratory Failure, dehydration Pertinent Medical Hx/Surgical Hx None Subjective Information Per H&P, patient positive for cocaine and marijuana. Spoke with patient's sister, who states he has a sore throat and prefers to eat cold foods right now. She also states he eats "kid foods", and likes snack foods. Current Diet Order/ Nutrition Support Regular Patient / S.O Not Indicated Pertinent Medications maalox, solu-medrol, abx, zofran, protonix Pertinent Labs (11/07) Na 126 (improved), glucose 277, Ca 8.2, albumin 2 .7 Nutritional Hx/Data Height 1.78 m Height (Calculated Centimeters) 177.8 Current Weight (lbs) 61.235 kg Weight (Calculated Kilograms) 61.2 Weight (Calculated Grams) 34175.0 [place] Body Weight 166 % [place] Body Weight 81 Body Mass Index (BMI) 19.3 Recent Weight Change No Weight Status Approriate GI Symptoms GI Symptoms None Last BM 11/06 x 2 Difficult in: None Food Allergies No Cultural/Ethnic/Holiness Belief none indicated Usual diet at home Regular Skin Integrity/Comment: Cuco 16, Intact Current %PO Negligible < 25% Estimated Nutritional Goals BEE in Kcals: Using Current wt Calories/Kcals/Kg 61.3kg CBW 30-35 kcal/kg Kcals Calculated ~0842-2664 kcal/day Protein: Using Current wt Protein g/k.2-1.5 gm/kg Protein Calculated ~75-90 gm/day Fluid: ml ~4071-4196 ml/day (1 ml/kcal) Nutritional Problem 1. Problem Problem Inadequate oral intake realted to Etiology possible poor appetite aeb Signs/Symptoms: PO <25% of meals, 81% IBW Intervention/Recommendation Comments 1. Continue regular diet as tolerated by patient. 2. If patient remains hyperglycemic (on Solu-medrol) consider modifying to 60 gm CCHO diet at that time. 3. Encourage oral intake of meals and snacks. 4. Start Ensure Enlive TID with meals Expected Outcomes/Goals Expected Outcomes/Goals PO intake to meet >75% of nutritional needs, weight stability or trend toward ideal body weight, skin intact , nutrition related labs to approach WNL. F/U MR
[2018-11-12] MEDS: D5-0.9NS w/KCL 20mEq 1,000 ML IV SCH (03:10)
[2018-11-12 06:00] LABS: HEMATOCRIT 39.2 % (41.0-60); HEMOGLOBIN 13.3 gm/dL (12-16); MEAN CELL VOLUME 88.6 fl (80-99); MEAN CORPUSCULAR HGB CONC 33.9 pg (28.0-36.0); RED BLOOD COUNT 4.43 Mil/cmm (4.30-5.70); RED CELL DISTRIBUTION WIDTH 12.8 % (11.5-20.0)
[2018-11-12 06:02] LABS: PLATELET COUNT 205 Th/cmm (150-400); WHITE BLOOD COUNT 23.2 Th/cmm (4.8-10.8)
[2018-11-12 06:07] LABS: INR 1.02 (0.5-1.4)
[2018-11-12] MEDS: Pantoprazole 40 mg EC Tab PO SCH (06:50)
[2018-11-12] MEDS: Ipratropium Neb 0.5 mg/2.5 mL UD IH SCH ×2 (06:53→11:32)
[2018-11-12] MEDS: Albuterol Nebulizer 2.5mg/3mL HHN SCH ×2 (06:53→11:32)
[2018-11-12 08:12] LABS: BAND NEUTROPHILE 8 % (0-10); EOSINOPHIL 4 % (0-5); LYMPHOCYTE 13 % (20-50); METAMYELOCYTE 4 % (0-0); MONOCYTE 3 % (2-10); MYELOCYTE 5 %; NEUTROPHILS 61 % (40-80); PLATELET ESTIMATE ADEQUATE (NORMAL); PROMYELOCYTE 2 %
[2018-11-12] MEDS: Lactobacillus Rhamnosus GG 15 Billion CFU CAP.SPRINK PO SCH (08:22)
[2018-11-12] MEDS: Escitalopram Oxalate 5 mg Tab PO SCH (08:22)
--- NOTE | 2018-11-12 16:53 | Progress Notes ---
DATE: 11/11/2018 SUBJECTIVE: The patient appears to be doing okay. OBJECTIVE: GENERAL: No distress, eating well. VITAL SIGNS: Temperature is 98.9, pulse 102, respiration is 19, blood pressure 123/77, saturation 99%. CHEST: Good breath sounds. No wheezing. Few rhonchi. HEART: Regular rate and rhythm. ABDOMEN: Soft. EXTREMITIES: No edema. LABORATORY DATA: WBC is 21.8, hemoglobin 12.3, hematocrit 37.4, platelets 165. Sodium 121, potassium 4.1, BUN 16, creatinine 0.7. IMPRESSION: 1. Respiratory failure. 2. Pneumonia. 3. Inflammatory lung disease, pneumonitis secondary to cocaine use. 4. Leukopenia secondary to severe sepsis, improving now with proper reaction with leukocytosis. PLAN: I agree with discontinuing the steroids, continue antibiotics. Possibly, white count goes down, can be discharged home with oral antibiotics soon. [facility]# [id number]
--- NOTE | 2018-11-12 21:14 | Discharge Summary ---
DATE OF DISCHARGE: 11/12/2018 CHIEF COMPLAINT: Fever and not feeling well. FINAL DIAGNOSES: Status post sepsis, atypical pneumonia, generalized rash, substance abuse, electrolyte abnormality, supraventricular tachycardia, low back pain, severe leukopenia, which is improved, status post bone marrow biopsy, reactive leukocytosis. HISTORY OF PRESENT ILLNESS: This is a 38-year-old male with no significant past medical history except for substance abuse with marijuana and cocaine, comes in with a 1-week history of not feeling well, generalized weakness, coughing productive and shortness of breath. The patient was brought in the ER and noted to have heart rate in the 130s and severely dehydrated. The patient with white count of 0.3. PHYSICAL EXAMINATION: VITAL SIGNS: Blood pressure 119/78, respiration 18, pulse 95, temperature 98.3. GENERAL: Thin-built young male, in no acute distress. NECK: Supple. No mass. LUNGS: Equal breath sounds, otherwise clear to auscultation. HEART: Regular rate without appreciable murmur. ABDOMEN: Soft, globular. EXTREMITIES: Positive excoriations. NEUROLOGIC: Limited, moving 4 extremities. HOSPITAL COURSE: The patient was admitted to ICU. Continue aggressive IV hydration. The patient seen by Dr. Fontana in the Emergency Room and seen by Dr. Wolfe for leukopenia, had a bone marrow negative for leukemia, seen by Dr. Moctezuma for severe hyponatremia. Sodium 116, this has improved to 131. Seen by Dr. Moreau for Pulmonary. The patient with bilateral pulmonary infiltrates on chest CT. The patient was reviewed with Dr. Matheus Sauceda for Infectious Disease. The patient's condition has improved and cleared for discharge. The patient was also seen by Psychiatry for substance abuse. CONDITION ON DISCHARGE: Fair. OVERALL PROGNOSIS: Good. DISCHARGE INSTRUCTIONS: The patient to continue on p.o. antibiotic as well as ____ treatment. The patient is to follow up with his regular physician as well as Psychiatry and may need to go to drug rehabilitation. Case was discussed with family member at bedside including sister ____ who are nurses. JOB# [id number]
--- NOTE | 2018-11-13 10:50 | Progress Notes ---
DATE: 11/12/2018 SUBJECTIVE: The patient was seen, chart reviewed, discussed with staff. Mother and sister were present. The patient states he is feeling better. He is feeling less anxious, less depressed. The patient has no wishes. There is no suicidal thought. MENTAL STATUS EXAMINATION: Speech fluent, not pressured, makes fair eye contact, no audiovisual hallucinations. No delusional thoughts. Affect is somewhat brighter. ASSESSMENT: The patient is cleared for discharge and agreed to outpatient followup. Recommend AA meetings on a regular basis and outpatient. The patient to continue with the Lexapro 10 mg p.o. daily. JOB# [id number]
== END 2018-11-12 12:33 | disposition home or self-care (01) | DRG 720 ==
LOC: ER 09:07 → ICU 11:51 → TELE 11-09 19:04
PROVIDERS: ADMIT Internal Medicine; ATTEND Internal Medicine
PROC: 07DR3ZX Extraction of Iliac Bone Marrow, Percutaneous Approach, Diagnostic (ICD-10-PCS; principal; 2018-11-07)
DX: A41.9 Sepsis, unspecified organism (principal); J96.01 Acute respiratory failure with hypoxia; E87.3 Alkalosis; D70.9 Neutropenia, unspecified; J18.9 Pneumonia, unspecified organism; E86.0 Dehydration; N39.0 Urinary tract infection, site not specified; E87.1 Hypo-osmolality and hyponatremia; L08.9 Local infection of the skin and subcutaneous tissue, unspecified; R65.20 Severe sepsis without septic shock; F12.10 Cannabis abuse, uncomplicated; F10.20 Alcohol dependence, uncomplicated
CPT/HCPCS: 36415-UA; 36600-90; 71045-TC; 71260-TC; 71275-TC; 74150-TC; 76770-TC; 80053-TC; 80074-90; 80202-TC; 80307; 81001-TC; 82270-TC; 82550-TC; 82553; 82803-TC; 82948-90; 83036-90; 83605; 83615-TC; 83735-TC; 83930-90; 84300-TC; 84443-TC; 84484-TC; 84550-TC; 85007-TC; 85025-TC; 85049-TC; 85379-TC; 85384-TC; 85610-TC; 85613; 85613-90; 85730-90; 85730-TC; 86157-TC; 86592-TC; 86635-90; 86703-TC; 86738-90; 87070; 87070-90; 87086-90; 87102-90; 87280-90; 87449-90; 87804-TC; 90779; 90799; 93005; 94640; 94660; 94760; 96374; J0696; J1442; J1644; J1956; J2001; J2185; J2270; J2405; J2543; J2920; J2930; J3370; J7030; J7042; J7613; Q9967; Z7610